=== PATIENT | male | born 1935 | race Caucasian/White ===

== ENCOUNTER 2019-06-12 12:08 | Emergency (ER) | payer MEDICARE ==
[2019-06-12] MEDS ORDERED: FUROSEMIDE 20 MG/ 2ML VIAL ONE (12:34)
[2019-06-12] MEDS ORDERED: FUROSEMIDE 40 MG/4 ML VIAL ONE (12:34)
--- NOTE | 2019-06-12 12:53 | EKG ---
Test Date: 2019-06-12 Test Time: 12:19:14 First Aid Officer: AG/T MEASUREMENT RESULTS: Intervals: Rate: 91 [place]: QRSD: 86 QT: 406 QTc: 499 [place]: P: W[place]: QRS: 40 T: 144 INTERPRETIVE STATEMENTS: Atrial fibrillation Voltage criteria for left ventricular hypertrophy ST & T wave abnormality, consider lateral ischemia Prolonged QT Abnormal ECG No previous ECG available for comparison Electronically Signed On 06-12-19 12:52:[address]
[2019-06-12 13:06] LABS: Absolute Lymphocytes (CBC) 0.9 K/uL (0.7-4.9); Basophils % 0.6 % (0-1.3); Hematocrit 31.5 % (39.6-49.0); Lymphocytes % 12.6 % (15.3-44.8); MPV 8.3 fL (7.6-11.3); RBC Red Blood Cell Count 3.73 M/uL (4.33-5.43)
[2019-06-12 13:10] LABS: Protime INR 1.11
--- NOTE | 2019-06-12 13:13 | RAD REPORT ---
EXAM DESCRIPTION: William Single View06/12/2019 1:02 pm CLINICAL HISTORY: Shortness of breath COMPARISON: none FINDINGS: Mild opacity mid to lower lateral left lung Right lung appears clear of acute infiltrate. The heart is mildly enlarged IMPRESSION: Mild left lung opacity may indicate a mild pneumonia
[2019-06-12 13:17] LABS: Albumin 2.7 g/dL (3.4-5.0); Bilirubin Direct 0.3 mg/dL (0-0.2); Bilirubin Total 0.8 mg/dL (0.2-1.0); Magnesium 1.8 mg/dL (1.8-2.4); Potassium 3.8 mmol/L (3.5-5.1); Protein, Total 6.1 g/dL (6.4-8.2); Troponin (Emerg Dept Use Only) 0.04 ng/mL (0.0-0.045)
--- NOTE | 2019-06-12 14:02 | RAD REPORT ---
EXAM DESCRIPTION: CT - Thorax Wo Con - 06/12/2019 1:48 pm CLINICAL HISTORY: sob COMPARISON: June 12, 2019 chest x-ray TECHNIQUE: Computed axial tomography of the chest was obtained. Contrast was not requested. All CT scans are performed using dose optimization technique as appropriate and may include automated exposure control or mA/KV adjustment according to patient size. FINDINGS: The evaluation of mediastinum, mike and vessels is limited secondary to lack of IV contras t administration. Mild bilateral interstitial lung opacities. Mild opacity within the lateral lower left lower lobe see n on the chest x-ray has the appearance of mild atelectasis. No mediastinal or hilar lymphadenopathy is seen. Small bilateral pleural effusions. Minimal pericardial thickening. Heart is mildly enlarged IMPRESSION: Mild bilateral interstitial opacities probably are acute and represent mild interstitial pulmonary edema. Less likely these are chronic. Given the cardiomegaly and small bilateral pleural effusions the patient likely has mild CHF
--- NOTE | 2019-06-12 15:53 | EDPHYS ---
Physician Documentation [facility] Name: Ander Del Rosario Age: 83 yrs Sex: Male : 1935 Arrival Date: 06/12/2019 Time: 12:12 Bed 24 Private MD: ED Physician Valentino Jiménez HPI: 06/12 16:48 This 83 yrs old Male presents to ER via Ambulatory with complaints of gs Shortness Of Breath, Leg Swelling. 16:48 The patient has shortness of breath at rest, during heavy activity. Onset: The gs symptoms/episode began/occurred 1 week(s) ago, and became worse and became persistent. Duration: The symptoms are continuous. The patient's shortness of breath is aggravated by exertion. Associated signs and symptoms: Pertinent positives: edema lower legs. Severity of symptoms: At their worst the symptoms were moderate in the emergency department the symptoms are unchanged. The patient has experienced similar episodes in the past, a few times. Historical: - Allergies: 12:22 No Known Allergies; ss - PMHx: 12:22 CHF; "leaky valve"; ss - Immunization history:: Adult Immunizations up to date. - Social history:: Smoking status: Patient uses tobacco products, chewing tobacco. - Ebola Screening: : Patient denies exposure to infectious person Patient denies travel to an Ebola-affected area in the 21 days before illness onset. ROS: 16:48 All other systems are negative. gs Exam: 16:48 Head/Face: Normocephalic, atraumatic. Eyes: Pupils equal round and reactive to light, gs extra-ocular motions intact. Lids and lashes normal. Conjunctiva and sclera are non-icteric and not injected. Cornea within normal limits. Periorbital areas with no swelling, redness, or edema. ENT: Nares patent. No nasal discharge, no septal abnormalities noted. Tympanic membranes are normal and external auditory canals are clear. Oropharynx with no redness, swelling, or masses, exudates, or evidence of obstruction, uvula midline. Mucous membranes moist. Neck: Trachea midline, no thyromegaly or masses palpated, and no cervical lymphadenopathy. Supple, full range of motion without nuchal rigidity, or vertebral point tenderness. No Meningismus. Chest/axilla: Normal chest wall appearance and motion. Nontender with no deformity. No lesions are appreciated. 16:48 Abdomen/GI: Soft, non-tender, with normal bowel sounds. No distension or tympany. No guarding or rebound. No evidence of tenderness throughout. Back: No spinal tenderness. No costovertebral tenderness. Full range of motion. Skin: Warm, dry with normal turgor. Normal color with no rashes, no lesions, and no evidence of cellulitis. Neuro: Awake and alert, GCS 15, oriented to person, place, time, and situation. Cranial nerves II-XII grossly intact. Motor strength 5/5 in all extremities. Sensory grossly intact. Cerebellar exam normal. Normal gait. 16:48 Constitutional: The patient appears alert, awake. 16:48 Cardiovascular: Rate: normal, Rhythm: irregularly irregular. 16:48 ECG was reviewed by the Attending Physician. 16:48 Respiratory: the patient does not display signs of respiratory distress, Respirations: tachypnea, that is mild, Breath sounds: rales, that are mild, are located in both bases. 16:48 Musculoskeletal/extremity: Perfusion: the patient is normally perfused throughout, Edema, 2+ to the left midcalf, left ankle, right midcalf and right ankle is noted. Vital Signs: 12:20 Resp 24; Weight 90.72 kg; Height 5 ft. 10 in. (177.80 cm); Pain 0/10; ss 12:30 BP 184 / 54; Pulse 89; Resp 24; Temp 98.2(O); Pulse Ox 95% ; lt1 13:30 BP 180 / 47; Pulse 76; Resp 24; Temp 97.8(O); Pulse Ox 99% on 2 lpm NC; lt1 14:27 BP 159 / 66; Pulse 89; Resp 22; Pulse Ox 100% on 2 lpm NC; mg2 15:31 Pulse 78; Pulse Ox 99% on R/A; mg2 15:33 BP 177 / 52; Resp 22; Temp 97.8(O); lt1 16:14 BP 166 / 50; Pulse 75; Resp 20; Temp 98; Pulse Ox 100% on R/A; mg2 12:20 Body Mass Index 28.70 (90.72 kg, 177.80 cm) MDM: 12:21 Patient medically screened. 16:48 Differential diagnosis: CHF exacerbation, Chronic Obstructive Pulmonary Disease gs Myocardial Infarction pneumonia. Data reviewed: vital signs, nurses notes, lab test result(s), EKG, radiologic studies. Counseling: I had a detailed discussion with the patient and/or guardian regarding: the historical points, exam findings, and any diagnostic results supporting the discharge/admit diagnosis, lab results, radiology results. Response to treatment: the patient's symptoms have markedly improved after treatment, the patient's condition has returned to base line, and as a result, I will discharge patient. ED course: good diuresis will restart lasix sats rr better. 06/12 12:21 Order name: Basic Metabolic Panel; Complete Time: 13:20 kdr 06/12 12:21 Order name: CBC with Diff; Complete Time: 13:20 kdr 06/12 12:21 Order name: LFT's; Complete Time: 13:20 kdr 06/12 12:21 Order name: Magnesium; Complete Time: 13:20 kdr 06/12 12:21 Order name: NT PRO-BNP; Complete Time: 13:20 kdr 06/12 12:21 Order name: PT-INR; Complete Time: 13:20 kdr 06/12 12:21 Order name: Troponin (emerg Dept Use Only); Complete Time: 13:20 kdr 06/12 12:21 Order name: XRAY Chest (1 view); Complete Time: 13:20 kdr 06/12 12:21 Order name: EKG; Complete Time: 12:22 kdr 06/12 12:21 Order name: Cardiac monitoring; Complete Time: 12:47 kdr 06/12 12:21 Order name: EKG - Nurse/Tech; Complete Time: 12:27 kdr 06/12 12:21 Order name: IV Saline Lock; Complete Time: 12:47 kdr 06/12 13:21 Order name: CT Chest Wo Con; Complete Time: 14:21 kdr 06/12 12:21 Order name: Labs collected and sent; Complete Time: 12:47 kdr 06/12 12:21 Order name: O2 Per Protocol; Complete Time: 12:47 kdr 06/12 12:21 Order name: O2 Sat Monitoring; Complete Time: 12:47 kdr EC:48 Rate is 91 beats/min. Rhythm is irregularly irregular. QRS interval is normal. QT gs interval is prolonged. T waves are Flattened. Clinical impression: Abnormal EKG without significant change. Interpreted by me. Administered Medications: 12:54 Drug: Lasix 60 mg Route: IVP; Site: left wrist; mg2 13:20 Follow up: Response: No adverse reaction; Marked relief of symptoms mg2 Disposition: 06/12/19 15:52 Discharged to Home. Impression: Heart failure. - Condition is Stable. - Discharge Instructions: Heart Failure, [id number]. - Prescriptions for Potassium Chloride 20 meq Oral Packet - take 1 packet by ORAL route once daily 1 packet in 6 (six) ounces of water or juice; Take after meal; 7 packet. Lasix 40 mg Oral Tablet - take 1 tablet by ORAL route 2 times per day .; 14 tablet. - Medication Reconciliation Form, Thank You Letter, Antibiotic Education, Prescription Opioid Use form. - Follow up: Private Physician; When: 2 - 3 days; Reason: Re-evaluation by your physician. Signatures: Dispatcher [employer] EDNoé Valverde MD MD [facility] Viridiana Galvan RN RN ss Valentino Jiménez MD MD Pravin Villagomez RN RN mg2 Corrections: (The following items were deleted from the chart) 16:15 15:52 06/12/2019 15:52 Discharged to Home. Impression: Heart failure. Condition is mg2 Stable. Forms are Medication Reconciliation Form, Thank You Letter, Antibiotic Education, Prescription Opioid Use. Follow up: Private Physician; When: 2 - 3 days; Reason: Re-evaluation by your physician.
--- NOTE | 2019-06-12 15:53 | ER ---
Nurse's Notes [facility] Name: Ander Del Rosario Age: 83 yrs Sex: Male : 1935 Arrival Date: 06/12/2019 Time: 12:12 Bed 24 Private MD: Diagnosis: Heart failure Presentation: 06/12 12:20 Presenting complaint: Patient states: bilateral leg swelling and increasing shortness ss of breath that began 1 week ago. Transition of care: patient was not received from another setting of care. Onset of symptoms was June 05, 2019. Risk Assessment: Do you want to hurt yourself or someone else? Patient reports no desire to harm self or others. Initial Sepsis Screen: Does the patient have a suspected source of infection? No. Patient's initial sepsis screen is negative. Care prior to arrival: None. 12:20 Method Of Arrival: Ambulatory ss 12:20 Acuity: DIONNA 3 ss 13:01 Initial Sepsis Screen: Does the patient meet any 2 criteria? No. Patient's initial mg2 sepsis screen is negative. Triage Assessment: 13:01 General: Appears in no apparent distress. comfortable, Behavior is calm, cooperative. mg2 Respiratory: Reports shortness of breath Onset: The symptoms/episode began/occurred suddenly, the patient has mild shortness of breath. Historical: - Allergies: 12:22 No Known Allergies; ss - PMHx: 12:22 CHF; "leaky valve"; ss - Immunization history:: Adult Immunizations up to date. - Social history:: Smoking status: Patient uses tobacco products, chewing tobacco. - Ebola Screening: : Patient denies exposure to infectious person Patient denies travel to an Ebola-affected area in the 21 days before illness onset. Screenin:56 Abuse screen: Denies threats or abuse. Denies injuries from another. Nutritional mg2 screening: No deficits noted. Tuberculosis screening: No symptoms or risk factors identified. Fall Risk IV access (20 points). Assessment: 12:57 General: Appears in no apparent distress. comfortable, Behavior is calm, cooperative. mg2 Pain: Denies pain. Neuro: Level of Consciousness is awake, alert, obeys commands, Oriented to person, place, time, situation. Cardiovascular: Capillary refill < 3 seconds Patient's skin is warm and dry. Respiratory: Airway is patent Respiratory effort is even, Respiratory pattern is regular, symmetrical, hard work of breathing Breath sounds with crackles bilaterally. in mediastinum, right middle lobe, left lower lobe and right lower lobe. GI: No signs and/or symptoms were reported involving the gastrointestinal system. : No signs and/or symptoms were reported regarding the genitourinary system. EENT: No signs and/or symptoms were reported regarding the EENT system. Derm: Skin is intact, is healthy with good turgor, Skin is pink, warm \\T\\ dry. normal. Musculoskeletal: Circulation, motion, and sensation intact. Capillary refill < 3 seconds. 13:00 Cardiovascular: Rhythm is sinus rhythm. mg2 13:14 Musculoskeletal: Swelling present in both legs. mg2 14:28 Reassessment: Patient and/or family updated on plan of care and expected duration. Pain mg2 level reassessed. Patient is alert, oriented x 3, equal unlabored respirations, skin warm/dry/pink. 15:32 Reassessment: Patient appears in no apparent distress at this time. Patient states mg2 feeling better. Patient states symptoms have improved. Vital Signs: 12:20 Resp 24; Weight 90.72 kg; Height 5 ft. 10 in. (177.80 cm); Pain 0/10; ss 12:30 BP 184 / 54; Pulse 89; Resp 24; Temp 98.2(O); Pulse Ox 95% ; lt1 13:30 BP 180 / 47; Pulse 76; Resp 24; Temp 97.8(O); Pulse Ox 99% on 2 lpm NC; lt1 14:27 BP 159 / 66; Pulse 89; Resp 22; Pulse Ox 100% on 2 lpm NC; mg2 15:31 Pulse 78; Pulse Ox 99% on R/A; mg2 15:33 BP 177 / 52; Resp 22; Temp 97.8(O); lt1 16:14 BP 166 / 50; Pulse 75; Resp 20; Temp 98; Pulse Ox 100% on R/A; mg2 12:20 Body Mass Index 28.70 (90.72 kg, 177.80 cm) ED Course: 12:12 Patient arrived in ED. as 12:14 Valentino Jiménez MD is Attending Physician. gs 12:20 Arm band placed on right wrist. ss 12:21 Triage completed. ss 12:27 Pravin Villagomez RN is Primary Nurse. mg2 12:55 No provider procedures requiring assistance completed. Inserted saline lock: 20 gauge mg2 in left wrist, using aseptic technique. Blood collected. by PATITO Olivo. 13:01 XRAY Chest (1 view) In Process Unspecified. EDMS 13:01 Patient has correct armband on for positive identification. Door closed. Warm blanket mg2 given. 13:50 CT Chest Wo Con In Process Unspecified. EDMS 14:28 Assisted with urinal. mg2 16:14 IV discontinued, intact, bleeding controlled, No redness/swelling at site. Pressure mg2 dressing applied. Administered Medications: 12:54 Drug: Lasix 60 mg Route: IVP; Site: left wrist; mg2 13:20 Follow up: Response: No adverse reaction; Marked relief of symptoms mg2 Output: 12:30 Urine: 550ml (Voided); Total: 550ml. lt1 13:00 Urine: 250ml (Voided); Total: 800ml. lt1 14:27 Urine: 600ml (Voided); Total: 1400ml. mg2 15:00 Urine: 450ml (Voided); Total: 1850ml. mg2 16:13 Urine: 800ml (Voided); Total: 2650ml. mg2 Outcome: 15:52 Discharge ordered by . gs 16:14 Discharged to home ambulatory, with family. mg2 16:14 Condition: stable 16:14 Discharge instructions given to patient, family, Instructed on discharge instructions, the need for admit, medication usage, Demonstrated understanding of instructions, follow-up care, medications, Prescriptions given X 2. 16:15 Patient left the ED. mg2 Signatures: Dispatcher [employer] Roseann Almodovar Shelby, RN RN Valentino Jiménez MD MD gs [place], Michele, RN RN mg2 Pallavi Hernandez lt1
[2019-06-12 16:37] VITALS: BP 166/50; TEMP 98; O2SAT 100
== END 2019-06-12 16:15 | disposition home or self-care (01) ==
LOC: ER 12:08
DX: I50.9 Heart failure, unspecified (principal); Z72.0 Tobacco use
CPT/HCPCS: 93005; 85025; 80048; 36415; 83735; 85610; 80076; 84484; 83880; 71250; 71045; 96374; 99284; J1940 ×2

== ENCOUNTER 2020-03-02 14:53 | Emergency (ER) | payer MEDICARE ==
[2020-03-02 15:37] LABS: Absolute Lymphocytes (CBC) 1.7 K/uL (0.7-4.9); Basophils % 0.9 % (0-1.3); Hematocrit 40.7 % (39.6-49.0); Lymphocytes % 21.2 % (15.3-44.8); RBC Red Blood Cell Count 4.83 M/uL (4.33-5.43)
[2020-03-02 15:51] LABS: Protime INR 1.09
[2020-03-02 16:01] LABS: Albumin 3.3 g/dL (3.4-5.0); Bilirubin Direct 0.2 mg/dL (0-0.2); Bilirubin Total 0.7 mg/dL (0.2-1.0); Magnesium 2.1 mg/dL (1.8-2.4); Potassium 4.2 mmol/L (3.5-5.1); Protein, Total 7.3 g/dL (6.4-8.2); Troponin (Emerg Dept Use Only) 0.04 ng/mL (0.0-0.045)
[2020-03-02] MEDS ORDERED: FUROSEMIDE 20 MG/ 2ML VIAL ONE (16:27)
--- NOTE | 2020-03-02 17:24 | RAD REPORT ---
EXAM DESCRIPTION: RAD - Chest Single View - 03/02/2020 4:34 pm CLINICAL HISTORY: SOB COMPARISON: Portable chest May 2019, CT chest May 2019 TECHNIQUE: AP portable chest image was obtained 03/02/2020 4:34 pm . FINDINGS: No focal lung parenchymal process. Interstitial pattern is similar to less prominent than comparison study. Pericardial fat pads are evident. Cardiac silhouette is similar to comparison. Wide raya mediastinum also similar to comparison. Prior CT imaging showed tortuous vasculature which would account for the fullness of the mediastinum. No measurable pleural effusion and no pneumothorax. No acute bony abnormality seen. No acute aortic f indings suspected. IMPRESSION: No acute cardiopulmonary process. No significant change from the May 2019 exam.
--- NOTE | 2020-03-02 18:03 | EDPHYS ---
Physician Documentation [facility] Name: Ander Del Rosario Age: 84 yrs Sex: Male : 1935 Arrival Date: 03/02/2020 Time: 14:56 Bed 4 Private MD: ED Physician Noé Scott HPI: 03/02 15:20 This 84 yrs old Male presents to ER via EMS with complaints of Shortness Of cp Breath. 15:20 The patient has shortness of breath with light activity. Onset: The symptoms/episode cp began/occurred gradually. 15:20 Duration: The symptoms are continuous. Associated signs and symptoms: Pertinent cp negatives: chest pain, productive cough, diaphoresis, fever, vomiting. Severity of symptoms: in the emergency department the symptoms are unchanged despite home interventions. Patient reports running out of Lasix medication about 3 weeks ago. Historical: - Allergies: 15:00 No Known Allergies; sv - PMHx: 15:00 "leaky valve"; CHF; Hypertension; sv - Immunization history:: Adult Immunizations up to date. - Social history:: Smoking status: . ROS: 15:25 Constitutional: Negative for body aches, chills, fever, poor PO intake. cp 15:25 Eyes: Negative for injury, pain, redness, and discharge. cp 15:25 ENT: Negative for ear pain, sore throat, difficulty swallowing, difficulty handling secretions. 15:25 Cardiovascular: Positive for edema, Negative for chest pain, palpitations. 15:25 Respiratory: Positive for shortness of breath, on exertion. Negative for cough, wheezing. 15:25 Abdomen/GI: Negative for abdominal pain, nausea, vomiting, and diarrhea. 15:25 Back: Negative for pain at rest, pain with movement. 15:25 : Negative for urinary symptoms. 15:25 Skin: Negative for cellulitis, rash. 15:25 Neuro: Negative for altered mental status, headache, syncope, weakness. 15:25 All other systems are negative. Exam: 15:30 Constitutional: The patient appears in no acute distress, alert, awake, cp non-diaphoretic, non-toxic, well developed, well nourished. 15:30 Head/Face: Normocephalic, atraumatic. cp 15:30 Eyes: Periorbital structures: appear normal, Conjunctiva: normal, no exudate, no injection, Sclera: no appreciated abnormality, Lids and lashes: appear normal, bilaterally. 15:30 ENT: External ear(s): are unremarkable, Nose: is normal, Mouth: Lips: moist, Oral mucosa: pink and intact, moist, Posterior pharynx: is normal, airway is patent, no erythema, no exudate. 15:30 Chest/axilla: Inspection: normal, Palpation: is normal, no crepitus, no tenderness. 15:30 Cardiovascular: Rate: normal, Rhythm: regular, Edema: ankle edema, that is very mild, JVD: is not appreciated. 15:30 Respiratory: the patient does not display signs of respiratory distress, Respirations: labored breathing, is not present, intercostal retractions, are absent, shallow respirations, are not present, tachypnea, is not appreciated, Breath sounds: rales, are not appreciated, bronchial sounds, that are mild, are heard diffusely, rhonchi, are not appreciated, stridor, is not appreciated, wheezing: is not appreciated. 15:30 Abdomen/GI: Inspection: abdomen appears normal, Palpation: abdomen is soft and non-tender, in all quadrants. 15:30 Back: pain, is absent, ROM is normal. 15:30 Skin: no rash present. 15:30 Neuro: Orientation: to person, place \\T\\ time. Mentation: is normal, Motor: moves all fours, strength is normal, Sensation: is normal. 16:24 ECG was reviewed by the Attending Physician. cp Vital Signs: 14:51 BP 171 / 39; Pulse 83; Resp 24; Temp 97.9; Pulse Ox 97% ; sv 16:23 BP 176 / 49; Pulse 81; Resp 28; Pulse Ox 96% on R/A; sv 17:52 BP 167 / 38; Pulse 87; Resp 26; Pulse Ox 94% on R/A; sv 18:32 BP 160 / 47; Pulse 94; Resp 24; Pulse Ox 95% on R/A; sv 19:20 BP 149 / 89; Pulse 96; Resp 26; Temp 98; Pulse Ox 98% ; rr5 20:00 BP 133 / 75; Pulse 90; Resp 22; Pulse Ox 99% ; rr5 MDM: 15:19 Patient medically screened. cp 15:30 Differential diagnosis: Anemia Bronchitis CHF exacerbation, Chronic Obstructive cp Pulmonary Disease Myocardial Infarction pneumonia, Pneumothorax pulmonary edema, Pulmonary Embolism Unstable Angina. 17:40 Data reviewed: vital signs, nurses notes, lab test result(s), EKG, radiologic studies, cp plain films. 17:40 Test interpretation: by ED physician or midlevel provider: ECG. 18:00 Physician consultation: Nimesh GUERRA-C was called at 17:50, was contacted at 17:50, cp regarding admission, to the telemetry unit. patient's condition. 18:23 Physician consultation: in the emergency department to see patient at 18:24, discharges cp patient from the emergency department, Patient seen and evaluated by Nimesh Guillermo, METALIZING MACHINE OPERATOR and felt stable for discharge to home. Return precautions given. 18:45 ED course: VSS. Patient stable and no signs of respiratory distress. Patient reports cp symptoms improved after IV Lasix. 03/02 15:19 Order name: Basic Metabolic Panel; Complete Time: 16:07 03/02 16:07 Interpretation: Normal except: GLUC 114; BUN 27; GFR 57. 03/02 15:19 Order name: CBC with Diff; Complete Time: 16:07 03/02 16:07 Interpretation: Normal except: HGB 13.3. 03/02 15:19 Order name: LFT's; Complete Time: 16:07 03/02 15:19 Order name: Magnesium; Complete Time: 16:07 03/02 15:19 Order name: NT PRO-BNP; Complete Time: 16:07 08 16:08 Interpretation: Abnormal: NT PRO-BNP 3717. 03/02 15:19 Order name: PT-INR; Complete Time: 16:07 03/02 15:19 Order name: Troponin (emerg Dept Use Only); Complete Time: 16:07 03/02 15:19 Order name: XRAY Chest (1 view); Complete Time: 17:37 03/02 15:19 Order name: EKG; Complete Time: 15:21 03/02 15:19 Order name: Cardiac monitoring; Complete Time: 15:31 03/02 15:19 Order name: EKG - Nurse/Tech; Complete Time: 16:23 03/02 15:19 Order name: IV Saline Lock; Complete Time: 15:31 03/02 15:19 Order name: Labs collected and sent; Complete Time: 15:31 cp 03/02 15:19 Order name: O2 Per Protocol; Complete Time: 15:31 cp 03/02 15:19 Order name: O2 Sat Monitoring; Complete Time: 15:32 cp 03/02 17:44 Order name: Vital Signs: please recheck and ambulate patient to check oxygen sats; cp Complete Time: 17:51 EC:24 Rate is 81 beats/min. Rhythm is regular. GA interval is normal. QRS interval is normal. cp QT interval is normal. T waves are Inverted in leads I, aVL. Interpreted by me. Reviewed by me. Administered Medications: 16:23 Drug: Lasix 20 mg Route: IVP; Site: right wrist; sv 17:00 Follow up: Response: No adverse reaction sv 18:20 Drug: Lasix 40 mg Route: IVP; Site: right hand; sv 19:20 Follow up: Response: No adverse reaction rr5 Disposition: 03/03 07:08 Co-signature as Attending Physician, Noé Scott MD I agree with the assessment and kdr plan of care. Disposition: 03/02/20 18:26 Discharged to Home. Impression: Unspecified combined systolic (congestive) and diastolic (congestive) heart failure, Dyspnea. - Condition is Stable. - Discharge Instructions: Heart Failure, Shortness of Breath. - Medication Reconciliation Form, Thank You Letter, Antibiotic Education, Prescription Opioid Use form. - Follow up: Private Physician; When: 2 - 3 days; Reason: Recheck today's complaints. - Problem is an acute exacerbation. - Symptoms have improved. Signatures: Dispatcher [employer] EDDavida Turner RN RN Noé Scott MD MD kdr Page, Corey, PA PA cp Brendan Van, RN RN rr5 Corrections: (The following items were deleted from the chart) 03/02 18:25 18:02 Hospitalization Ordered by Alexy Butler DO for Observation. Preliminary cp diagnosis is Unspecified combined systolic (congestive) and diastolic (congestive) heart failure; Dyspnea, unspecified. Bed requested for Telemetry/MedSurg (observation). Status is Observation. Condition is Stable. Problem is an acute exacerbation. Symptoms are unchanged. cp 18:27 18:26 03/02/2020 18:26 Discharged to Home. Impression: Unspecified combined systolic cp (congestive) and diastolic (congestive) heart failure. Condition is Stable. Forms are Medication Reconciliation Form, Thank You Letter, Antibiotic Education, Prescription Opioid Use. Follow up: Private Physician; When: 2 - 3 days; Reason: Recheck today's complaints. Problem is an acute exacerbation. Symptoms have improved. cp 20:24 18:27 03/02/2020 18:26 Discharged to Home. Impression: Unspecified combined systolic rr5 (congestive) and diastolic (congestive) heart failure; Dyspnea. Condition is Stable. Discharge Instructions: Shortness of Breath, Heart Failure. Forms are Medication Reconciliation Form, Thank You Letter, Antibiotic Education, Prescription Opioid Use. Follow up: Private Physician; When: 2 - 3 days; Reason: Recheck today's complaints. Problem is an acute exacerbation. Symptoms have improved. cp 03/03 18:25 03/02 15:20 Patient reports running out of Lasix medication several weeks ago. cp cp
--- NOTE | 2020-03-02 18:03 | ER ---
Nurse's Notes [facility] Name: Ander Del Rosario Age: 84 yrs Sex: Male : 1935 Arrival Date: 03/02/2020 Time: 14:56 Bed 4 Private MD: Diagnosis: Unspecified combined systolic (congestive) and diastolic (congestive) heart failure;Dyspnea Presentation: 03/02 14:51 Chief complaint: EMS states: SOB with exertion x2 days, [facility]. Pt reports he has been out of his Lasix for about 3 weeks. On EMS arrival pt was not in any respiratory distress. 96% RA, BP 168/69 lungs CTA. 18 G R wrist. Coronavirus screen: Proceed with normal triage. Patient denies a cough. Patient reports shortness of breath or difficulty breathing. Patient denies measured and/or subjective temperature greater than 100.4F prior to today's visit. Patient denies travel on a cruise ship or to a country the [facility] currently lists as an affected area. Patient denies contact with known and/or suspected case of COVID-19. Ebola Screen: No symptoms or risks identified at this time. Initial Sepsis Screen: Does the patient meet any 2 criteria? RR > 20 per min. No. Patient's initial sepsis screen is negative. Does the patient have a suspected source of infection? No. Patient's initial sepsis screen is negative. Risk Assessment: Do you want to hurt yourself or someone else? Patient reports no desire to harm self or others. Onset of symptoms was February 29, 2020. 14:51 Method Of Arrival: EMS: [facility] sv 14:51 Acuity: DIONNA 2 sv Triage Assessment: 15:00 General: Appears in no apparent distress. comfortable, well developed, Behavior is sv calm, cooperative, appropriate for age. Pain: Denies pain. Neuro: Level of Consciousness is awake, alert, obeys commands, Oriented to person, place, time, situation, Moves all extremities. Full function. Respiratory: Reports shortness of breath on exertion Respiratory effort is even, unlabored, Respiratory pattern is regular, tachypnea Onset: The symptoms/episode began/occurred 2 days, the patient has mild shortness of breath. Derm: Skin is normal. Historical: - Allergies: 15:00 No Known Allergies; sv - PMHx: 15:00 "leaky valve"; CHF; Hypertension; sv - Immunization history:: Adult Immunizations up to date. - Social history:: Smoking status: . Screenin:01 Abuse screen: Denies threats or abuse. Denies injuries from another. Nutritional sv screening: No deficits noted. Tuberculosis screening: No symptoms or risk factors identified. Fall Risk None identified. Assessment: 15:45 Reassessment: Pt ambulating around his room from his stretcher to the chair. O2 sat sv noted to be 90% RA. 16:26 Reassessment: Patient appears in no apparent distress at this time. No changes from sv previously documented assessment. Patient and/or family updated on plan of care and expected duration. Pain level reassessed. Patient is alert, oriented x 3, equal unlabored respirations, skin warm/dry/pink. 17:50 Reassessment: Pt ambulating around his room from his stretcher to the chair. O2 sat sv noted to be around 90-91% RA. 18:45 Reassessment: POC discussed with Nimesh GUERRA. I informed him that pt still desats to sv 90-92% RA with ambulation in the room. He stated that we will monitor the pt for about another hour and watch the O2 sats. 19:02 Reassessment: Ambulated pt around to Pod 1 with no O2. O2 sat after ambulation is 90%. sv 19:15 General: Appears in no apparent distress. comfortable, for discharge . Pain: Denies rr5 pain. Neuro: Level of Consciousness is awake, alert, obeys commands, Oriented to person, place, time, situation. Cardiovascular: Capillary refill < 3 seconds Patient's skin is warm and dry. Cardiovascular: Rhythm is. Respiratory: Airway is patent Respiratory effort is even, unlabored, Respiratory pattern is regular, symmetrical, GI: No signs and/or symptoms were reported involving the gastrointestinal system. : No signs and/or symptoms were reported regarding the genitourinary system. EENT: No signs and/or symptoms were reported regarding the EENT system. Derm: Skin is intact, is healthy with good turgor, Skin temperature is warm. Musculoskeletal: Capillary refill < 3 seconds. 19:40 Reassessment: Patient appears in no apparent distress at this time. able to walk around rr5 the bedside, no shortness of breath reported. 20:20 Reassessment: Patient appears in no apparent distress at this time. Patient is alert, rr5 oriented x 3, equal unlabored respirations, skin warm/dry/pink. discharge instruction given and explained without complaints made. Patient states feeling better. Patient states symptoms have improved. Vital Signs: 14:51 BP 171 / 39; Pulse 83; Resp 24; Temp 97.9; Pulse Ox 97% ; sv 16:23 BP 176 / 49; Pulse 81; Resp 28; Pulse Ox 96% on R/A; sv 17:52 BP 167 / 38; Pulse 87; Resp 26; Pulse Ox 94% on R/A; sv 18:32 BP 160 / 47; Pulse 94; Resp 24; Pulse Ox 95% on R/A; sv 19:20 BP 149 / 89; Pulse 96; Resp 26; Temp 98; Pulse Ox 98% ; rr5 20:00 BP 133 / 75; Pulse 90; Resp 22; Pulse Ox 99% ; rr5 ED Course: 14:51 Maintain EMS IV. Dressing intact. Good blood return noted. Site clean \\T\\ dry. Gauge \\T\\ sv site: 18G R wrist. 14:56 Patient arrived in ED. sv 14:56 Davida Segundo, SULMA is Primary Nurse. sv 14:59 Triage completed. sv 15:00 Arm band placed on. sv 15:00 Initial lab(s) drawn, by me, sent to lab. sv 15:01 Patient has correct armband on for positive identification. Bed in low position. Call sv light in reach. Side rails up X2. Pulse ox on. NIBP on. Door closed. Head of bed elevated. 15:10 Darryl Fontana PA is PHCP. cp 15:10 Noé Scott MD is Attending Physician. cp 16:22 EKG done, by ED staff, reviewed by Darryl MCNULTY. dh3 16:26 Awaiting radiology results. sv 16:34 XRAY Chest (1 view) In Process Unspecified. EDMS 18:01 Alexy Butler DO is Hospitalizing Provider. cp 19:12 Report given to Brendan RN and Sheri RN. sv 19:13 Primary Nurse role handed off by Davida Segundo, SULMA sv 20:15 Brendan Van, SULMA is Primary Nurse. rr5 20:15 No provider procedures requiring assistance completed. IV discontinued, intact, rr5 bleeding controlled, No redness/swelling at site. Pressure dressing applied. Administered Medications: 16:23 Drug: Lasix 20 mg Route: IVP; Site: right wrist; sv 17:00 Follow up: Response: No adverse reaction sv 18:20 Drug: Lasix 40 mg Route: IVP; Site: right hand; sv 19:20 Follow up: Response: No adverse reaction rr5 Output: 18:24 Urine: 500ml (Voided); Total: 500ml. sv 20:00 Urine: 300ml (Voided); Total: 800ml. rr5 Outcome: 18:02 Decision to Hospitalize by Provider. cp 18:26 Discharge ordered by MD. cp 20:20 Discharged to home via wheelchair. rr5 20:20 Condition: stable 20:20 Discharge instructions given to patient, Instructed on discharge instructions, follow up and referral plans. Demonstrated understanding of instructions, follow-up care. 20:24 Patient left the ED. rr5 Signatures: Dispatcher [employer] Davida Sepulveda RN RN Darryl Fontana PA PA Snow Mccormick [facility] Brendan Van RN RN rr5 Corrections: (The following items were deleted from the chart) 15:06 14:51 Acuity: DIONNA 3 sv sv 03/03 06:56 07/08 19:15 Respiratory: Airway is patent Respiratory effort is even, unlabored, rr5 Respiratory pattern is regular, symmetrical, rr5
[2020-03-02] MEDS ORDERED: FUROSEMIDE 40 MG/4 ML VIAL ONE (18:23)
--- NOTE | 2020-03-02 18:39 | P.CNS ---
Date of Consult: 03/02/20 Reason for Consult: Possible ED admission Requesting Physician: Noé Scott Primary Care Provider: PARVIZ Chief Complaint: Shortness of breath History of Present Illness: 84-year-old male with history of hypertension and CHF presented the emergency department for shortness of breath. Patient reports that he has been out of his Lasix for approximately 1 month. [facility] 60 [facility] once daily which she took yesterday. Patient reports that somebody had told them that he is dehydrated so he has also been drinking as much water as he could. Patient reports that his shortness of breath has improved since the 20mg of Lasix that he was given IV in the emergency department but he still feels short of breath with exertion. Patient does report some lower extremity edema but states that it is about at baseline and not even worse. Patient is able to speak in full sentences and in no respiratory distress. Patient states that he was not on a fluid restriction and also not performing daily weights. Home medications list reviewed: Yes - Past Medical/Surgical History -: Congestive heart failure -: Hypertension Past Surgical History: Reviewed- Non-Contributory Psychosocial/ Personal History: Patient lives at home alone - Social History Smoking Status: Never smoker Alcohol use: No CD- Drugs: No Caffeine use: No Place of Residence: Home Review of Systems General: Unremarkable Eyes: Unremarkable ENT: Unremarkable Respiratory: SOB with Excertion Cardiovascular: Edema, Other (Patient denies chest pain) Gastrointestinal: Unremarkable Genitourinary: Unremarkable Musculoskeletal: Unremarkable Integumentary: Unremarkable Neurological: Unremarkable Lymphatics: Unremarkable Physical Examination General: Alert, In no apparent distress, Oriented x3 HEENT: Atraumatic, Normocephalic Neck: Supple Respiratory: Crackles/rales (Mild bilaterally) Cardiovascular: Normal pulses, Regular rate/rhythm, Normal S1 S2, Edema (Mild pitting edema bilaterally) Capillary refill: <2 Seconds Gastrointestinal: Normal bowel sounds, No tenderness, No masses, No rebound, No guarding Musculoskeletal: No contractures, No erythema, No tenderness Integumentary: No significant lesion, No tenderness/swelling, No erythema Neurological: Normal speech, Normal strength at 5/5 x4 extr, Normal tone Laboratory Data (last 24 hrs) 03/02/20 15:10: PT 12.8 H, INR 1.09 03/02/20 15:10: WBC 7.9, Hgb 13.3 L, Hct 40.7, Plt Count 169 03/02/20 15:10: Sodium 141, Potassium 4.2, BUN 27 H, Creatinine 1.21, Glucose 114 H, Magnesium 2.1, Total Bilirubin 0.7, AST 21, ALT 16, Alkaline Phosphatase 117 Conclusions/Impression: Assessment Dyspnea secondary to CHF exacerbation Plan Dyspnea secondary to CHF exacerbation: Chest x-ray negative for any acute findings including volume overload. Patient in no respiratory distress. Oxygen saturations greater than 90% even with exertion. Had extended conversation with patient in regards to the importance of 1.5 L fluid restriction, appropriate use of prescribed diuretic therapy, daily weights. Patient was given 800 cc container and instructed to drink no more than 2 of these per day. Patient was offered admission for observation and diuretic therapy overnight ultimately declined. Patient in no respiratory distress, vital signs within normal limits. Patient oxygen saturation around 90-91% with exertion but at rest and while talking in full sentences patient oxygen level between 95 and 96%. Patient instructed to begin taking his Lasix 60 mg once daily tomorrow and continue this. Patient also instructed to follow up with primary care doctor in the next few days. Patient also given strict return precautions should he get more short of breath or any new or worsening problems that he return to the emergency department immediately. Patient verbalized understanding. Critical Care: No Time Spent Managing Pts care (In Minutes): 45
[2020-03-02 22:46] VITALS: BP 160/47; O2SAT 95
== END 2020-03-02 20:24 | disposition home or self-care (01) ==
LOC: ER 14:53
DX: I50.40 Unspecified combined systolic (congestive) and diastolic (congestive) heart failure (principal); R06.00 Dyspnea, unspecified; I10 Essential (primary) hypertension
CPT/HCPCS: 93005; 85025; 80048; 36415; 83735; 85610; 80076; 84484; 83880; 71045; 96374; 99284; J1940 ×2

== ENCOUNTER 2022-04-27 11:26 | Inpatient (IN) | payer MEDICARE, OTHER ==
[2022-04-27] MEDS ORDERED: LEVALBUTEROL 1.25 MG/3 ML NEB ONE (12:00)
[2022-04-27 12:20] LABS: Absolute Lymphocytes (CBC) 0.5 K/uL (0.7-4.9); Hematocrit 31.7 % (39.6-49.0); Lymphocytes % 12.7 % (15.3-44.8); MCV 83.5 fL (80-100); MPV 8.6 fL (7.6-11.3); RBC Red Blood Cell Count 3.79 M/uL (4.33-5.43)
[2022-04-27 12:35] LABS: Protime INR 1.31
--- NOTE | 2022-04-27 12:37 | RAD REPORT ---
EXAM DESCRIPTION: RAD - Chest Single View - 04/27/2022 12:20 pm CLINICAL HISTORY: Cough Chest pain. COMPARISON: Chest Single View dated 03/02/2020; Chest Single View dated 06/12/2019 FINDINGS: Portable technique limits examination quality. Moderate bilateral pulmonary opacities are present which may represent pulmonary edema or viral infec tion. The heart is moderately enlarged. No displaced fractures. IMPRESSION: Moderate CHF.
[2022-04-27 12:47] LABS: Albumin 2.9 g/dL (3.4-5.0); Bilirubin Total 2.2 mg/dL (0.2-1.0); Potassium 3.9 mmol/L (3.5-5.1); Protein, Total 6.8 g/dL (6.4-8.2); Troponin High Sensitivity 32.8 pg/mL (<58.9)
[2022-04-27] MEDS ORDERED: FUROSEMIDE 20 MG/ 2ML VIAL ONE (13:12)
[2022-04-27] MEDS ORDERED: FUROSEMIDE 40 MG/4 ML VIAL ONE (13:12)
--- NOTE | 2022-04-27 13:25 | EDPHYS ---
Physician Documentation [facility] Name: Ander Del Rosario Age: 86 yrs Sex: Male : 1935 Arrival Date: 04/27/2022 Time: 11:29 Bed 8 Private MD: ED Physician Paco An HPI: 04/27 13:17 This 86 yrs old Male presents to ER via Wheelchair with complaints of sob. rn 13:17 The patient has shortness of breath at rest, with light activity. Onset: The rn symptoms/episode began/occurred 1 week(s) ago. Duration: The symptoms are continuous. The patient's shortness of breath is aggravated by exertion, light activity, talking, walking, is alleviated by nothing. Severity of symptoms: At their worst the symptoms were moderate in the emergency department the symptoms are unchanged. The patient has not experienced similar symptoms in the past. The patient has not recently seen a physician. Pt reports sob for last week, no chest pain, + cough, no fever. . Historical: - Allergies: 11:42 No Known Allergies; ss - Home Meds: 11:42 Unable to obtain [Active]; ss - PMHx: 11:42 "leaky valve"; CHF; Hypertension; ss - PSHx: 11:42 None; ss - Immunization history:: Adult Immunizations up to date, Client reports receiving the 2nd dose of the Covid vaccine, Client reports receiving the 1st dose of the Covid vaccine. - Social history:: Smoking status: Patient reports use of chewing tobacco. Patient denies any tobacco usage or history of. - Family history:: not pertinent. - Hospitalizations: : No recent hospitalization is reported. ROS: 13:17 Constitutional: Negative for fever, chills, and weight loss, Eyes: Negative for injury, rn pain, redness, and discharge, Neck: Negative for injury, pain, and swelling, Cardiovascular: Negative for chest pain, palpitations Respiratory: + sob and cough Abdomen/GI: Negative for abdominal pain, nausea, vomiting, diarrhea, and constipation, Back: Negative for injury and pain, MS/Extremity: Negative for injury and deformity, Skin: Negative for injury, rash, and discoloration, Neuro: Negative for headache, weakness, numbness, tingling, and seizure. Exam: 13:17 Constitutional: This is a well developed, well nourished patient who is awake, alert, rn + moderate tachypnea Head/Face: Normocephalic, atraumatic. Cardiovascular: Regular rate and rhythm. No pulse deficits. Respiratory: + moderate tachypnea, no retractions, coarse bilateral breath sounds Abdomen/GI: soft, non-tender Skin: Warm, dry MS/ Extremity: RLE slightly larger circumference compared to LLE Neuro: Awake and alert, GCS 15 13:20 ECG was reviewed by the Attending Physician. rn Vital Signs: 11:38 BP 106 / 74; Pulse 76; Resp 26; Temp 98.2(TE); Pulse Ox 88% on R/A; Weight 95.25 kg ss (R); Height 5 ft. 10 in. (177.80 cm); Pain 0/10; 12:55 BP 130 / 42; Pulse 67; Resp 24; Pulse Ox 94% on 4 lpm NC; ld1 13:35 BP 127 / 43; Pulse 71; Resp 22; Pulse Ox 96% on 4 lpm NC; Pain 0/10; ld1 15:34 BP 137 / 47; Pulse 76; Resp 18; Pulse Ox 94% on 4 lpm NC; ld1 16:30 BP 133 / 46; Pulse 73; Resp 18; Pulse Ox 95% on 4 lpm NC; ld1 17:30 BP 132 / 46; Pulse 76; Resp 18; Pulse Ox 97% on 4 lpm NC; ld1 18:30 BP 117 / 32; Pulse 67; Resp 18; Pulse Ox 94% on BiPAP; ld1 19:15 BP 129 / 41; Pulse 64; Resp 25; Pulse Ox 96% on BiPAP; ll3 11:38 Body Mass Index 30.13 (95.25 kg, 177.80 cm) MDM: 11:37 Patient medically screened. rn 13:17 Differential diagnosis: CHF exacerbation, pneumonia, Pneumothorax pulmonary edema, rn Sepsis. Data reviewed: vital signs, nurses notes, lab test result(s), EKG, radiologic studies, plain films. 13:21 Counseling: I had a detailed discussion with the patient and/or guardian regarding: the rn historical points, exam findings, and any diagnostic results supporting the discharge/admit diagnosis, lab results, radiology results, the need for further work-up and treatment in the hospital. Response to treatment: the patient's symptoms have mildly improved after treatment, and as a result, I will admit patient. Admission orders: after a detailed discussion of the patient's condition and case, the admit orders are written by me. 04/27 11:44 Order name: Blood Culture Adult (2) rn 04/27 11:44 Order name: CBC with Diff; Complete Time: 13:00 rn 04/27 11:44 Order name: CMP; Complete Time: 13:00 rn 04/27 11:44 Order name: Lactate; Complete Time: 13:00 rn 04/27 11:44 Order name: Protime (+inr); Complete Time: 13:00 rn 04/27 11:44 Order name: Ptt, Activated; Complete Time: 13:00 rn 04/27 11:44 Order name: BNP; Complete Time: 13:00 rn 04/27 11:44 Order name: SARS-COV-2 RT PCR (Document "Date of Onset" if Symptomatic); Complete Time: rn 13:25 04/27 11:44 Order name: Flu rn 04/27 11:44 Order name: Troponin High Sensitivity; Complete Time: 13:00 rn 04/27 12:31 Order name: Glucose, Ancillary Testing; Complete Time: 13:00 EDPA 04/27 13:32 Order name: Troponin High Sensitivity EDPA 04/27 13:32 Order name: Troponin High Sensitivity EDPA 04/27 13:32 Order name: Troponin High Sensitivity EDPA 04/27 11:44 Order name: Chest Single View XRAY; Complete Time: 13:00 rn 04/27 11:44 Order name: Accucheck; Complete Time: 12:17 rn 04/27 11:44 Order name: Cardiac monitoring; Complete Time: 12:02 rn 04/27 11:44 Order name: EKG - Nurse/Tech; Complete Time: 12:02 rn 04/27 11:44 Order name: IV Saline Lock - Large Bore; Complete Time: 12:02 rn 04/27 11:44 Order name: Labs collected and sent; Complete Time: 12:02 rn 04/27 11:44 Order name: O2 Per Protocol; Complete Time: 12:02 rn 04/27 11:44 Order name: O2 Sat Monitoring; Complete Time: 12:02 rn 04/27 13:31 Order name: Echo with Doppler EDPA 04/27 15:37 Order name: CT; Complete Time: 20:42 EDMS 04/27 20:07 Order name: Procalcitonin; Complete Time: 20:42 EDPA 04/27 22:23 Order name: ABG Arterial Blood Gas EDMS EC:20 Rate is 71 beats/min. Rhythm is regular. QRS [place] is Normal. IA interval is normal. QRS rn interval is normal. No Q waves. T waves are Inverted in lead aVL. No ST changes noted. Clinical impression: NSR w/ Non-specific ST/T Changes. Interpreted by me. Reviewed by me. Administered Medications: 11:50 Drug: Xopenex (levalbuterol) 1.25 mg Route: Inhalation; ld1 19:14 Follow up: Response: No adverse reaction ld1 13:10 Drug: Lasix (furosemide) 60 mg Route: IVP; Site: right antecubital; ld1 14:00 Follow up: Response: No adverse reaction ld1 Disposition Summary: 04/27/22 13:24 Hospitalization Ordered Hospitalization Status: Inpatient Admission rn Provider: Naldo Mcgee rn Location: Telemetry/[facility]Sur (Inpatient) rn Condition: Stable rn Problem: an acute exacerbation rn Symptoms: have improved rn Bed/Room Type: Standard rn Room Assignment: [id number](04/27/22 23:22) cg Diagnosis - Unspecified combined systolic (congestive) and diastolic (congestive) heart failure rn - Acute pulmonary edema rn - Dyspnea, unspecified rn - Hypoxemia rn Forms: - Medication Reconciliation Form rn - SBAR form rn Signatures: Dispatcher [employer] [facility] Paco An MD MD rn Smirch, Shelby, RN RN Nimesh Guillermo FNP-C [employer]ENTICES[employer] TRAINING REPRESENTATIVE-[facility] Funmilayo Prado RN RN Elsa Chris RN RN ld1 Corrections: (The following items were deleted from the chart) : 13:24 rn cg
--- NOTE | 2022-04-27 13:25 | ER ---
Nurse's Notes [facility] Name: Ander Del Rosario Age: 86 yrs Sex: Male : 1935 Arrival Date: 04/27/2022 Time: 11:29 Bed 8 Private MD: Diagnosis: Unspecified combined systolic (congestive) and diastolic (congestive) heart failure;Acute pulmonary edema;Dyspnea, unspecified;Hypoxemia Presentation: 04/27 11:38 Chief complaint: Patient states: I woke up yesterday with a cough and shortness of ss breath and today it has gotten worse. Coronavirus screen: Client presents with at least one sign or symptom that may indicate coronavirus-19. Standard/surgical mask placed on the client. Ebola Screen: No symptoms or risks identified at this time. 11:38 Method Of Arrival: Wheelchair ss 11:41 Initial Sepsis Screen: Does the patient meet any 2 criteria? RR > 20 per min. Does the ss patient have a suspected source of infection? No. Patient's initial sepsis screen is negative. Risk Assessment: Do you want to hurt yourself or someone else? Patient reports no desire to harm self or others. Onset of symptoms is unknown. 11:41 Acuity: DIONNA 3 ss Triage Assessment: 11:42 General: Appears distressed, obese, Behavior is calm, cooperative. Pain: Denies pain. ss EENT: No deficits noted. No signs and/or symptoms were reported regarding the EENT system. Neuro: No deficits noted. Cardiovascular: Denies chest pain, Patient's skin is warm and dry. Edema is 2+ to right midcalf and right ankle Chest pain is denied. Respiratory: Airway is patent Respiratory effort is even, labored, Respiratory pattern is regular, symmetrical, tachypnea Breath sounds with crackles bilaterally. GI: No deficits noted. No signs and/or symptoms were reported involving the gastrointestinal system. : No deficits noted. No signs and/or symptoms were reported regarding the genitourinary system. Derm: No deficits noted. No signs and/or symptoms reported regarding the dermatologic system. Musculoskeletal: No deficits noted. No signs and/or symptoms reported regarding the musculoskeletal system. Historical: - Allergies: 11:42 No Known Allergies; ss - Home Meds: :42 Unable to obtain [Active]; ss - PMHx: 11:42 "leaky valve"; CHF; Hypertension; ss - PSHx: 11:42 None; ss - Immunization history:: Adult Immunizations up to date, Client reports receiving the 2nd dose of the Covid vaccine, Client reports receiving the 1st dose of the Covid vaccine. - Social history:: Smoking status: Patient reports use of chewing tobacco. Patient denies any tobacco usage or history of. - Family history:: not pertinent. - Hospitalizations: : No recent hospitalization is reported. Screenin:59 Abuse screen: Denies threats or abuse. Denies injuries from another. Nutritional ld1 screening: No deficits noted. Tuberculosis screening: No symptoms or risk factors identified. Fall Risk None identified. Assessment: 12:59 Reassessment: See triage assessment. General:. ld1 13:35 Reassessment: Patient appears in no apparent distress at this time. Patient and/or ld1 family updated on plan of care and expected duration. Pain level reassessed. Patient is alert, oriented x 3, equal unlabored respirations, skin warm/dry/pink. Patient denies pain at this time. 15:00 Reassessment: Patient appears in no apparent distress at this time. No changes from ld1 previously documented assessment. Patient is alert, oriented x 3, equal unlabored respirations, skin warm/dry/pink. 16:00 Reassessment: Patient appears in no apparent distress at this time. Patient is alert, ld1 oriented x 3, equal unlabored respirations, skin warm/dry/pink. Patient states symptoms have not improved. 16:00 Reassessment: Notified provider and R of pt JOSE crackles. See MAR for orders. Patient ld1 states symptoms have not improved. 17:00 Reassessment: No changes from previously documented assessment. Patient and/or family ld1 updated on plan of care and expected duration. Pain level reassessed. Patient states symptoms have not improved. 18:00 Reassessment: Patient and/or family updated on plan of care and expected duration. Pain ld1 level reassessed. Patient denies pain at this time. Patient states symptoms have not improved. . 19:15 Reassessment: Patient and/or family updated on plan of care and expected duration. Pain ll3 level reassessed. Neuro: Level of Consciousness is awake, alert, obeys commands, Oriented to person, place, time, situation. Respiratory: Respiratory effort is labored, Respiratory pattern is symmetrical, Breath sounds are diminished bilaterally. the patient has moderate shortness of breath. Vital Signs: 11:38 BP 106 / 74; Pulse 76; Resp 26; Temp 98.2(TE); Pulse Ox 88% on R/A; Weight 95.25 kg ss (R); Height 5 ft. 10 in. (177.80 cm); Pain 0/10; 12:55 BP 130 / 42; Pulse 67; Resp 24; Pulse Ox 94% on 4 lpm NC; ld1 13:35 BP 127 / 43; Pulse 71; Resp 22; Pulse Ox 96% on 4 lpm NC; Pain 0/10; ld1 15:34 BP 137 / 47; Pulse 76; Resp 18; Pulse Ox 94% on 4 lpm NC; ld1 16:30 BP 133 / 46; Pulse 73; Resp 18; Pulse Ox 95% on 4 lpm NC; ld1 17:30 BP 132 / 46; Pulse 76; Resp 18; Pulse Ox 97% on 4 lpm NC; ld1 18:30 BP 117 / 32; Pulse 67; Resp 18; Pulse Ox 94% on BiPAP; ld1 19:15 BP 129 / 41; Pulse 64; Resp 25; Pulse Ox 96% on BiPAP; ll3 11:38 Body Mass Index 30.13 (95.25 kg, 177.80 cm) ss ED Course: 11:29 Patient arrived in ED. am2 11:37 Paco An MD is Attending Physician. rn 11:41 Triage completed. ss 11:42 Arm band placed on left wrist. ss 12:02 Flu Sent. ld1 12:02 SARS-COV-2 RT PCR (Document "Date of Onset" if Symptomatic) Sent. ld1 12:14 Inserted saline lock: 20 gauge in right forearm, using aseptic technique. Blood zm collected. 12:14 Troponin High Sensitivity Sent. zm 12:15 BNP Sent. zm 12:15 Blood Culture Adult (2) Sent. zm 12:15 CBC with Diff Sent. zm 12:15 CMP Sent. zm 12:15 Lactate Sent. zm 12:15 Protime (+inr) Sent. zm 12:15 Ptt, Activated Sent. zm 12:19 Elsa Chris, RN is Primary Nurse. ld1 12:21 Chest Single View XRAY In Process Unspecified. EDMS 12:59 Patient has correct armband on for positive identification. Placed in gown. Bed in low ld1 position. Call light in reach. Side rails up X2. hotel front desk clerk on. Pulse ox on. NIBP on. Door closed. Noise minimized. Warm blanket given. 12:59 No provider procedures requiring assistance completed. ld1 13:22 Naldo Mcgee MD is Hospitalizing Provider. rn 04/28 00:18 Patient admitted, IV remains in place. ll3 Administered Medications: 04/27 11:50 Drug: Xopenex (levalbuterol) 1.25 mg Route: Inhalation; ld1 19:14 Follow up: Response: No adverse reaction ld1 13:10 Drug: Lasix (furosemide) 60 mg Route: IVP; Site: right antecubital; ld1 14:00 Follow up: Response: No adverse reaction ld1 Medication: 12:59 VIS not applicable for this client. ld1 Outcome: 13:24 Decision to Hospitalize by Provider. rn 04/28 00:44 Admitted to Tele accompanied by nurse, via stretcher, room 416, with oxygen, with ll3 chart, Report called to SULMA Blake Condition: stable Instructed on the need for admit, Demonstrated understanding of instructions. 00:44 Patient left the ED. ll3 Signatures: Dispatcher [employer] EDMS Paco An MD MD rn Smirch, Shelby, RN RN ss Moreno, Amanda am2 Elsa Chris RN RN ld1 Tere Contreras RN RN ll3 Liz Gerber Corrections: (The following items were deleted from the chart) 04/27 19:22 19:15 BP 129 / 41; Pulse 64bpm; Pulse Ox 96% BiPAP; ll3 ll3
--- NOTE | 2022-04-27 15:15 | P.HP ---
Certification for Inpatient Patient admitted to: Inpatient With expected LOS: >2 Midnights Patient will require the following post-hospital care: None Practitioner: I am a practitioner with admitting privileges, knowledge of patient current condition, hospital course, and medical plan of care. Services: Services provided to patient in accordance with Admission requirements found in Title 42 Section 412.3 of the Code of Federal Regulations Patient History Date of Service: 04/27/22 Reason for admission: CHF Exacerbation History of Present Illness: Mr. Ander Del Rosario is a pleasant 86-year-old male who has a past medical history of hypertension who presents to the [facility] Emergency Department for shortness of breath. He reports that, over the last 1 to 2 days, he has been experiencing progressively worsening shortness of breath. He states that this has been associated with a sore throat and a dry cough. He denies any obvious inciting or alleviating factors. He denies any recent medication changes. He reports compliance with his medications. He states that he takes 56 medications at home, but he cannot remember the names. He knows that one of the medications is a blood pressure pill and the other medication is a water pill. He has not tried taking anything prior to arrival. On review of systems, he denies any fevers, chills, headaches, dizziness, syncope, weakness, chest pain, palpitations, wheezing, abdominal pain, nausea/vomiting, diarrhea, constipation, hematochezia, melena, dysuria, hematuria, myalgia, or any other symptoms. He presented to the Emergency Department for further evaluation. Upon presentation, his vital signs were notable for a respiratory rate of 26 breaths/min and an SpO2 of 88% on room air. His laboratory studies were notable for a creatinine of 2.31 (was 1.21 on 03/02/2020) and a NT proBNP of 7390. EKG revealed sinus rhythm with premature atrial complexes and a prolonged QTc int erval of 530 ms. There was no STEMI criteria noted. Chest x-ray revealed "moderate CHF". In the Emergency Department, she was given levalbuterol and furosemide. He was admitted to the General Internal Medicine service for further evaluation. Allergies No Known Allergies Allergy (Unverified 04/27/22 15:51) Home medications list reviewed: No (Takes 5-6 pills, but does not know names) - Past Medical/Surgical History -: Congestive heart failure -: Hypertension Past Surgical History: Reviewed- Non-Contributory Psychosocial/ Personal History: Patient lives at home alone - Family History Family History: Reviewed- Non-Contributory - Social History Smoking Status: Former smoker Alcohol use: No CD- Drugs: No Caffeine use: No Review of Systems General: Unremarkable Eyes: Unremarkable Respiratory: Cough, Dry, Shortness of Breath, SOB with Excertion Cardiovascular: Unremarkable Gastrointestinal: Unremarkable Genitourinary: Unremarkable Musculoskeletal: Unremarkable Integumentary: Unremarkable Neurological: Unremarkable Physical Examination - Vital Signs Temperature: 98.2 F Blood Pressure: 106/74 Pulse: 76 Respirations: 26 Pulse Ox (%): 96 - Physical Exam General: Alert, In no apparent distress, Oriented x3 Neck: Supple, JVD not distended Respiratory: Crackles/rales, Rhonchi/gurgles Cardiovascular: No edema, Regular rate/rhythm, Normal S1 S2, No gallops, No rubs, No murmurs Gastrointestinal: Normal bowel sounds, Soft and benign, Non-distended, No tenderness, No rebound, No guarding Musculoskeletal: No clubbing Integumentary: No rashes Neurological: Normal gait, Normal strength at 5/5 x4 extr, Cranial nerves 3-12 intact - Studies Laboratory Data (last 24 hrs) 04/27/22 12:10: PT 14.5 H, INR 1.31, APTT 30.3 04/27/22 12:10: Sodium 142, Potassium 3.9, BUN 66 H, Creatinine 2.31 H, Glucose 124 H, Total Bilirubin 2.2 H, AST 30, ALT 15, Alkaline Phosphatase 83 04/27/22 12:10: WBC 4.10 L, Hgb 10.6 L, Hct 31.7 L, Plt Count 126 L Assessment and Plan - Plan # Acute on Chronic Decompensated Congestive Heart Failure with Unknown Ejection Fraction # Hypertension - Consult Cardiology - recommendations appreciated - Ordered transthoracic echocardiogram - Diuresis with IV furosemide for today - Continue home meds once verified - NT-Pro BNP = 7,390 - Daily weights - Strict I/O - Cardiac diet, 2 L fluid restriction, 2 g Na restriction # Acute Hypoxic Respiratory Failure - likely secondary to Community-Acquired Pneumonia and Congestive Heart Failure Currently, he is on 4 L nasal cannula, with improvement of his SpO2 readings to 96 %. - Evaluation thus far: - He does not currently meet sepsis criteria - Procalcitonin = pending - ABG = pending - Chest x-ray = "Moderate CHF." - CT chest = "Moderate airspace opacities are present in both lung bases posteriorly most compatible with bibasilar pneumonia." - Management plan: - Consulted Pulmonary Medicine - recommendations appreciated - Consulted Respiratory Therapy - Supplemental oxygen to maintain SpO2 > 92% - Started ceftriaxone + doxycycline (chosen over azithromycin due to prolonged QTc) - PRN benzonatate - Encouraged incentive spirometry # KDIGO Stage II Acute Kidney Injury - suspect Cardiorenal Syndrome - Creatinine = 2.31 (was 1.21 on 03/02/2020) - Urinalysis = pending - IV diuretics as mentioned above - Monitor creatinine and urine output - If worsening, obtain renal ultrasound - Renally dose medications Naldo Mcgee M.D. - Advance Directives Does patient have a Living Will: No Does patient have a Durable POA for Healthcare: No
--- NOTE | 2022-04-27 15:36 | RAD REPORT ---
EXAM DESCRIPTION: CT - Thorax Wo Con CLINICAL HISTORY: Chest pain hypoxia COMPARISON: Thorax Wo Con dated 06/12/2019; Chest Single View dated 04/27/2022 FINDINGS: Moderate airspace opacities are present in both lung bases posteriorly likely representing pneumonia. No pleural thickening or pleural effusion. No pneumothorax. No axillary, mediastinal or hilar adenopathy. No concerning bony finding. No gross upper abdominal finding. All CT scans are performed using dose optimization technique as appropriate and may include automated exposure control or mA/KV adjustment according to patient size. IMPRESSION: Moderate airspace opacities are present in both lung bases posteriorly most compatible w ith bibasilar pneumonia.
[2022-04-27] MEDS ORDERED: CEFTRIAXONE 1,000 MG in NA CHLORIDE 0.9% 50 ML IVPB SCH ×2 (15:41→16:53)
[2022-04-27] MEDS ORDERED: DOXYCYCLINE 100 MG in NA CHLORIDE 0.9% 100 ML IVPB SCH (15:42)
[2022-04-27] MEDS ORDERED: BENZONATATE 100 MG CAP PO PRN (16:42)
[2022-04-27] MEDS: DOXYCYCLINE 100 MG in NA CHLORIDE 0.9% 100 ML IVPB SCH ×2 (16:52→21:00)
[2022-04-27] MEDS ORDERED: CEFTRIAXONE 1000 MG/VIAL ONE ×2 (21:03→21:20)
[2022-04-27] MEDS ORDERED: NA CHLORIDE 0.9% 50 ML ONE ×2 (21:03→21:20)
[2022-04-27] MEDS: CEFTRIAXONE 1,000 MG in NA CHLORIDE 0.9% 50 ML IVPB SCH (21:10)
[2022-04-27 22:19] LABS: Arterial Blood Carboxyhemoglob 1.5 % (0-1.5); Blood Gas Oxyhemoglobin 89.7 % (94-97); Blood O2 Saturation 92.1 % (92-98.5)
[2022-04-28] MEDS: ALBUTEROL 2.5 MG/3 ML NEB SOL NEB SCH ×4 (01:12→20:00)
[2022-04-28] MEDS: IPRATROPIUM BROM 0.5MG/2.5ML NEB SCH ×4 (01:12→20:00)
[2022-04-28] MEDS: METHYLPREDNISOLONE 40 MG INJ IV SCH ×3 (01:19→18:22)
[2022-04-28] MEDS: DOXYCYCLINE 100 MG in NA CHLORIDE 0.9% 100 ML IVPB SCH ×2 (01:19→09:07)
[2022-04-28 06:26] LABS: Absolute Lymphocytes (CBC) 0.6 K/uL (0.7-4.9); MCV 83.9 fL (80-100); MPV 9.1 fL (7.6-11.3); RBC Red Blood Cell Count 3.57 M/uL (4.33-5.43)
[2022-04-28 06:33] LABS: Albumin 2.4 g/dL (3.4-5.0); Magnesium 2.4 mg/dL (1.8-2.4); Potassium 4.2 mmol/L (3.5-5.1); Protein, Total 6.3 g/dL (6.4-8.2)
[2022-04-28] MEDS ORDERED: FUROSEMIDE 40 MG/4 ML VIAL IV SCH (09:00)
[2022-04-28] MEDS: CEFTRIAXONE 1,000 MG in NA CHLORIDE 0.9% 50 ML IVPB SCH (09:09)
[2022-04-28 09:29] LABS: Blood Morphology Comment NOTED (NOT SEEN); Platelet Estimate ADEQ
[2022-04-28 09:33] LABS: Dohle Bodies PRESENT; Toxic Granulation 2+
--- NOTE | 2022-04-28 18:56 | P.PN ---
Subjective Date of Service: 04/28/22 Chief Complaint: CHF Exacerbation No acute events overnight. He reports that he continues to feel a dry cough, but his shortness of breath is improving. Review of Systems 10-point ROS is otherwise unremarkable Respiratory: Cough, Dry, Shortness of Breath Physical Examination - Vital Signs Temperature: 97.4 F Blood Pressure: 163/71 Pulse: 70 Respirations: 18 Pulse Ox (%): 100 - Studies Microbiology Data (last 24 hrs): 04/27/22 12:25 Blood - Blood Gram Stain - Final 04/27/22 12:10 Blood - Blood Blood Culture Gram Stain - Final 04/27/22 12:10 Blood - Blood Gram Stain - Final Assessment And Plan - Plan - Physical Exam General: Alert, In no apparent distress, Oriented x3 Neck: Supple, JVD mildly distended Respiratory: Crackles/rales, Rhonchi/gurgles Cardiovascular: 1+ bilateral lower extremity pitting edema, Regular rate/rhythm, Normal S1 S2, No gallops, No rubs, No murmurs Gastrointestinal: Normal bowel sounds, Soft and benign, Non-distended, No tenderness, No rebound, No guarding Musculoskeletal: No clubbing Integumentary: No rashes Neurological: Normal gait, Normal strength at 5/5 x4 extr, Cranial nerves 3-12 intact # Acute Hypoxemic Respiratory Failure - likely secondary to Community-Acquired Pneumonia and Congestive Heart Failure Currently, he is on 2 L nasal cannula, with improvement of his SpO2 readings to 100 %. - Evaluation thus far: - Procalcitonin = 6.29 - ABG = pH 7.38, PCO2 47, PO2 62.6 - Chest x-ray = "Moderate CHF." - CT chest = "Moderate airspace opacities are present in both lung bases posteriorly most compatible with bibasilar pneumonia." - Management plan: - Consulted Pulmonary Medicine - recommendations appreciated - Consulted Respiratory Therapy - Supplemental oxygen to maintain SpO2 > 92% - Started ceftriaxone + doxycycline (chosen over azithromycin due to prolonged QTc) - PRN benzonatate - Encouraged incentive spirometry # Sepsis likely secondary to Community-Acquired Pneumonia with Gram-Positive Bacteremia She met sepsis criteria based on HR > 90 bpm, RR > 20 breaths/min, and > 10% bands and the suspected source is pneumonia with bacteremia. Although his creatinine >2.0 mg/dL, I suspect this to be more cardiorenal syndrome rather than sepsis-induced. - Sepsis order set was initiated - Initial Lactate was 1.6, trend - Blood cultures drawn before antibiotics were given - 3/4 positive for gram- positive cocci in chains and pairs - Broad spectrum antibiotics started: Ceftriaxone + Doxycycline - switched to Vancomycin + Piperacillin-Tazobactam - 30 mL/kg of IV fluids was not administered given SBP > 90, MAP > 65, lactic acid < 4, and concern for volume overload due to CHF # Acute on Chronic Decompensated Congestive Heart Failure with Unknown Ejection Fraction # Hypertension - Consult Cardiology - recommendations appreciated - Ordered transthoracic echocardiogram - Diuresis with IV furosemide for today - Continue home meds once verified - NT-Pro BNP = 7,390 - Daily weights - Strict I/O - Cardiac diet, 2 L fluid restriction, 2 g Na restriction # KDIGO Stage II Acute Kidney Injury - suspect Cardiorenal Syndrome - Creatinine = 2.31 -> 2.47 (was 1.21 on 03/02/2020) - Urinalysis = pending - IV diuretics as mentioned above - Monitor creatinine and urine output - If worsening, obtain renal ultrasound - Renally dose medications Naldo Mcgee M.D. Discharge Plan: Home Plan to discharge in: Greater than 2 days
[2022-04-28] MEDS ORDERED: PIPER TAZO 2.25 GM in NA CHLORIDE 0.9% 50 ML IV SCH (19:08)
[2022-04-28] MEDS: PIPER TAZO 3.375 GM in NA CHLORIDE 0.9% 50 ML IV SCH (19:30)
[2022-04-28] MEDS ORDERED: VANCOMYCIN 2.5 GM in NA CHLORIDE 0.9% 500 ML IVPB ONE (20:00)
[2022-04-28] MEDS ORDERED: VANCOMYCIN 1 GM in NA CHLORIDE 0.9% 250 ML IVPB SCH (20:00)
[2022-04-28] MEDS ORDERED: VANCOMYCIN 1 GM/VIAL ONE (21:40)
[2022-04-28] MEDS ORDERED: VANCOMYCIN 500 MG/VIAL ONE (21:42)
[2022-04-28] MEDS ORDERED: NA CHLORIDE 0.9% 500 ML ONE (21:43)
[2022-04-29] MEDS: PIPER TAZO 3.375 GM in NA CHLORIDE 0.9% 50 ML IV SCH ×2 (01:00→10:04)
[2022-04-29] MEDS: METHYLPREDNISOLONE 40 MG INJ IV SCH ×2 (01:20→10:03)
[2022-04-29] MEDS: IPRATROPIUM BROM 0.5MG/2.5ML NEB SCH ×4 (01:30→20:26)
[2022-04-29] MEDS: ALBUTEROL 2.5 MG/3 ML NEB SOL NEB SCH ×4 (01:30→20:26)
[2022-04-29 03:46] LABS: Absolute Lymphocytes (CBC) 0.6 K/uL (0.7-4.9); Hematocrit 29.5 % (39.6-49.0); Lymphocytes % 14.1 % (15.3-44.8); MCV 85.2 fL (80-100); MPV 9.3 fL (7.6-11.3); RBC Red Blood Cell Count 3.47 M/uL (4.33-5.43)
[2022-04-29 03:55] LABS: Albumin 2.3 g/dL (3.4-5.0); Bilirubin Total 0.7 mg/dL (0.2-1.0); Potassium 4.3 mmol/L (3.5-5.1); Protein, Total 6.2 g/dL (6.4-8.2)
[2022-04-29] MEDS: FUROSEMIDE 20 MG/ 2ML VIAL IV SCH (10:03)
--- NOTE | 2022-04-29 11:34 | P.CNS ---
Date of Consult: 04/29/22 Reason for Consult: CHF respiratory failure Chief Complaint: CHF Exacerbation History of Present Illness: Patient is 86 years of age with a history of hypertension admitted from the emergency department with shortness of breath and a dry cough able to cough up any phlegm prior history of obstructive airways disease denies any symptoms of sepsis presented with tachypnea and hypoxemia has improved since admission acute on chronic renal failure Allergies No Known Allergies Allergy (Verified 04/28/22 00:44) - Past Medical/Surgical History -: Congestive heart failure -: Hypertension Psychosocial/ Personal History: Patient lives at home alone - Social History Smoking Status: Never smoker Alcohol use: No CD- Drugs: No Caffeine use: No Review of Systems 10-point ROS is otherwise unremarkable General: Weakness Respiratory: Cough, Shortness of Breath Physical Examination Temp Pulse Resp BP Pulse Ox 97.0 F 67 20 181/71 H 100 04/29/22 08:00 04/29/22 10:03 04/29/22 08:00 04/29/22 10:03 04/29/22 08:00 General: Alert, In no apparent distress, Oriented x3 Respiratory: Diminished Cardiovascular: No edema, Normal S1 S2 Gastrointestinal: Normal bowel sounds, Soft and benign - Problems (1) Respiratory failure Current Visit: Yes Status: Acute Plan: Patient is 86 years of age with a history of hypertension admitted with hypoxic hypercapnic respiratory failure also has acute on chronic renal failure x-ray diminished lung volumes cardiomegaly CRAB PICKER is over 7000 probably has a combination of nongap metabolic acidosis and some respiratory acidosis patient's blood pressure is elevated DC steroids for now Qualifiers: Chronicity: acute on chronic (2) Streptococcus agalactiae infection Current Visit: Yes Status: Acute Plan: Blood cultures are positive sensitive to penicillin DC vancomycin for now and Zosyn (3) Acute on chronic renal failure Current Visit: Yes Status: Acute Plan: Consult nephrology Qualifiers: Chronic kidney disease stage: stage 4 (severe)
--- NOTE | 2022-04-29 12:40 | CON ---
Date of Consultation: 04/28/2022 Reason For Consultation: Shortness of breath, congestive heart failure, possible pneumonia. History Of Present Illness: Mr. Del Rosario is 86. Has had a history of congestive heart failure, hyperten sonia, and leaky valve in the past. He sees Dr. Kamara as an outpatient. Came in with shortness of rafa ath. Chest x-ray showed possible pneumonia. Has elevated procalcitonin. Creatinine is 2.47. His B SCREENING TECHNICIAN was 7000. He has improved on inhalers, steroids, antibiotics, and Lasix, but his kidney function has worsened. He denied chest pain, nausea, vomiting, diaphoresis, palpitations, or syncope. Denied any fever or chills. Denied any PND or orthopnea, but has had some shortness of breath and pedal ed jenna. Past Medical History: Stable and as stated earlier. Allergies: NONE. Review of Systems: Negative. Social History: Negative. Medications: As stated earlier. Physical Examination: Vital Signs: Stable. He is in sinus rhythm. Afebrile. HEENT: Negative. Neck: Supple without any bruit, lymphadenopathy, JVD, or thyromegaly. Chest: Reveals some rales both bases. Cardiac: Revealed a regular rhythm and rate with S4 gallops. No murmurs or rubs. Abdomen: Benign. Extremities: Revealed trace edema. Diagnostic Data: As stated earlier. Impression And Plan: I think Mr. Del Rosario probably has more pneumonia picture than congestive heart fail ure. Using Lasix, his creatinine went up. I will suggest Nephrology consultation, hold the Lasix. Continue inhalers, steroids, and antibiotics. Obtain an echocardiogram later. His hypertension is w ell controlled. He has a history of leaky valve. Echocardiogram will help us decide what he has. I will continue to follow him. MARIANA/JHNO Voice ID: [id number] Report ID: [id number]
--- NOTE | 2022-04-29 13:10 | PN ---
Date of Progress Note: 04/29/2022 Mr. Del Rosario had came in with congestive heart failure and pneumonia. I really think he has more pneumon ia and congestive heart failure. He has elevated procalcitonin. Creatinine is 2.47, pO2 of 62, pCO2 47 with a pH of 7.38. Echocardiogram is pending if he stays here. His BNP was 7000. He remains on inhalers, steroids, antibiotics as well as Lasix. His creatinine had gone up to 2.66. Maybe Lasix should be held. Nephrology should be involved. He needs better blood pressure control. I will disc uss the case further with Dr. Mcgee. MARIANA/JHON Voice ID: [id number] Report ID: [id number]
--- NOTE | 2022-04-29 15:35 | P.PN ---
Subjective Date of Service: 04/29/22 Chief Complaint: CHF Exacerbation No acute events overnight. He appears to be improving clinically, but reports that his cough and shortness of breath are unchanged. Review of Systems 10-point ROS is otherwise unremarkable Respiratory: Cough, Dry, Shortness of Breath Physical Examination - Vital Signs Temperature: 97.0 F Blood Pressure: 154/68 Pulse: 68 Respirations: 18 Pulse Ox (%): 99 - Studies Microbiology Data (last 24 hrs): 04/27/22 12:25 Blood - Blood Gram Stain - Final 04/27/22 12:10 Blood - Blood Aerobic Blood Culture - Final Streptococcus Agalactiae [facility] B 04/27/22 12:10 Blood - Blood Blood Culture Gram Stain - Final 04/27/22 12:10 Blood - Blood Anaerobic Blood Culture - Final Streptococcus Agalactiae [facility] B 04/27/22 12:10 Blood - Blood Gram Stain - Final Assessment And Plan - Plan - Physical Exam General: Alert, In no apparent distress, Oriented x3 Neck: Supple, JVD mildly distended Respiratory: Crackles/rales, Rhonchi/gurgles Cardiovascular: 1+ bilateral lower extremity pitting edema, Regular rate/rhythm, Normal S1 S2, No gallops, No rubs, No murmurs Gastrointestinal: Normal bowel sounds, Soft and benign, Non-distended, No t enderness, No rebound, No guarding Musculoskeletal: No clubbing Integumentary: No rashes Neurological: Normal gait, Normal strength at 5/5 x4 extr, Cranial nerves 3-12 intact # Acute Hypoxemic Respiratory Failure - likely secondary to Community-Acquired Pneumonia and Congestive Heart Failure Currently, he is on 2 L nasal cannula, with improvement of his SpO2 readings to 100 %. - Evaluation thus far: - Procalcitonin = 6.29 - ABG = pH 7.38, PCO2 47, PO2 62.6 - Chest x-ray = "Moderate CHF." - CT chest = "Moderate airspace opacities are present in both lung bases posteriorly most compatible with bibasilar pneumonia." - Management plan: - Consulted Pulmonary Medicine - recommendations appreciated - Consulted Respiratory Therapy - Supplemental oxygen to maintain SpO2 > 92% - Continue antibiotics as mentioned below - PRN benzonatate - Encouraged incentive spirometry # Sepsis likely secondary to Community-Acquired Pneumonia with Group B Streptococcus Agalactiae Bacteremia She met sepsis criteria based on HR > 90 bpm, RR > 20 breaths/min, and > 10% bands and the suspected source is pneumonia with bacteremia. Although his creatinine >2.0 mg/dL, I suspect this to be more cardiorenal syndrome rather than sepsis-induced. 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 # Hypertension - Consult Cardiology - recommendations appreciated - Ordered transthoracic echocardiogram - Diuresis with IV furosemide for today - Continue home meds once verified - NT-Pro BNP = 7,390 - Daily weights - Strict I/O - Cardiac diet, 2 L fluid restriction, 2 g Na restriction # KDIGO Stage II Acute Kidney Injury - suspect Cardiorenal Syndrome - Creatinine = 2.31 -> 2.47 -> 2.66 (was 1.21 on 03/02/2020) - Urinalysis = pending - IV diuretics as mentioned above - Monitor creatinine and urine output - If worsening, obtain renal ultrasound - Renally dose medications # Nutrition Status - Pending swallow study - If failed, may require NG tube with tube feed initiation Naldo Mcgee M.D.
--- NOTE | 2022-04-29 20:34 | RAD REPORT ---
EXAM DESCRIPTION: US - Renal Ultrasound-Complete - 04/29/2022 8:19 pm CLINICAL HISTORY: Acute and chronic renal failure COMPARISON: None. FINDINGS: The right kidney measures 10 cm with an increased echotexture. 2.3 centimeter cyst The left kidney measures 11 cm with an increased echotexture. 4.8 centimeters cyst Hydronephrosis is not seen. No gross abnormality of bladder is noted IMPRESSION: Increased renal echotexture consistent with parenchymal disease Renal cysts
[2022-04-29] MEDS: AMPICILLIN/SULBACT 3 GM in NA CHLORIDE 0.9% 100 ML IVPB SCH (22:02)
[2022-04-30] MEDS ORDERED: MORPHINE 2 MG/ML SYR IV ONE ×2 (01:51→04:30)
[2022-04-30] MEDS: ALBUTEROL 2.5 MG/3 ML NEB SOL NEB SCH ×4 (02:00→20:05)
[2022-04-30] MEDS: IPRATROPIUM BROM 0.5MG/2.5ML NEB SCH ×4 (02:00→20:05)
[2022-04-30 03:52] LABS: Absolute Lymphocytes (CBC) 0.7 K/uL (0.7-4.9); Hematocrit 33.7 % (39.6-49.0); MPV 9.5 fL (7.6-11.3); RBC Red Blood Cell Count 3.97 M/uL (4.33-5.43)
[2022-04-30 04:07] LABS: Albumin 2.5 g/dL (3.4-5.0); Bilirubin Total 0.8 mg/dL (0.2-1.0); Protein, Total 6.9 g/dL (6.4-8.2)
--- NOTE | 2022-04-30 07:55 | RAD REPORT ---
EXAM DESCRIPTION: CT - Abdomen Pelvis Wo Contrast - 04/30/2022 7:30 am CLINICAL HISTORY: Abdominal pain /right abdominal pain COMPARISON: None TECHNIQUE: Computed axial tomography of the abdomen and pelvis was obtained. IV and oral contrast we re not requested. All CT scans are performed using dose optimization technique as appropriate and may include automated exposure control or mA/KV adjustment according to patient size. FINDINGS: The evaluation of solid organs, vessels and bowel is limited secondary to the lack of con trast administration. Moderate bibasilar lung opacities. Liver, spleen, pancreas and right adrenal gland grossly normal. Small nodule left adrenal gland is nonspecific but probably an adenoma. Thickening of the wall of the second portion of duodenum. Extraluminal air is present. Small amount o f ill-defined fluid surrounds duodenum. There is stranding within the adjacent fat. Small densities are present the gallbladder. The wall does not appear thickened. Mild stranding withi n the adjacent fat probably related to inflammatory changes involving the duodenum rather than primar y gallbladder pathology Bilateral renal cysts No evidence diverticulitis. Moderate left inguinal hernia contains fat IMPRESSION: Wall thickening of the second portion of the duodenum with extraluminal air and inflamma tory changes. This may indicate a perforated ulcer or perforated mass. Cholelithiasis is suspected Bilateral pulmonary opacities may indicate pneumonia Patient's nurse Faith was notified 7:50 a.m. April 30, 2022
[2022-04-30] MEDS ORDERED: VANCOMYCIN 1.75 GM in NA CHLORIDE 0.9% 500 ML IVPB SCH (08:00)
[2022-04-30] MEDS: FUROSEMIDE 20 MG/ 2ML VIAL IV SCH (08:07)
[2022-04-30] MEDS: AMPICILLIN/SULBACT 3 GM in NA CHLORIDE 0.9% 100 ML IVPB SCH ×2 (08:07→21:06)
[2022-04-30] MEDS: Ringers Lactate 1,000 ML IV SCH (11:17)
--- NOTE | 2022-04-30 12:22 | CON ---
Date of Consultation: 04/30/2022 Reason For Service: Findings in the duodenum. History Of Present Illness: This is the case of an -[id number]-[id number] patient, who was admitted abo mt 4 days ago for shortness of breath. He was diagnosed with pneumonia. He also has history of hear t disease with congestive heart failure. Last night, he had some abdominal pain and then the CAT sca n was ordered and was done this morning and then during the CAT scan, the patient was found to have a possible gallstone, but also the radiologist believed there was some swelling around duodenum that c ould be either be a tumor or could be a gastric ulcer or even at the beginning of a gastric ulcer per foration because he has a small air nearby. The patient right now has no epigastric pain and he is a symptomatic, but the primary doctor believes that that was prudent to rule that out and I agree with that. He has been eating. When they came immediately there, he seemed to be n.p.o. and I came to [facility] immediately. As I discussed the case with primary doctor, he has at this moment no abdomi nal pain. No guarding or rebound. No peritoneal signs. He cannot give much information or the son nearby when was his last endoscopy if any. There is no history of nausea, vomiting, diarrhea, dysuri a, hematuria, hematochezia, or melena. He has been treated for the last few days for his lung diseas e and also moderate congestive heart failure. Review of Systems: See my H and P. Ten points otherwise unremarkable. Social History: He does not smoke, although he used to. He drinks alcohol occasionally. Family History: Noncontributory at this moment. Past Medical History: Includes congestive heart failure, hypertension. Medications: Reviewed and noticed. He has been on inhalers, on Lasix. Physical Examination: General: The patient is awake, alert. HEENT: Pupils are equal and reactive. Anicteric. Neck: Supple. Chest: Clear. Abdomen: Soft and depressible. No guarding or rebound. No peritoneal signs. Rectal: Deferred. Extremities: Good capillary refill. No Hernandez sign. No psoas signs. Laboratory Data: WBC count is 9.4 with hemoglobin of 11.4 and platelets of 180. INR is 1.3. Sodium is 147, creatinine is 2.57, total bilirubin of 0.8. The patient had a chest CT done in the second o f this month. That chest CT shows moderate airspace opacities are present in both lung bases, most c onsistent with bibasilar pneumonia per Dr. Regalado. A renal ultrasound shows increased renal echotextur e consistent with parenchymal disease and renal cyst. CAT scan of the abdomen and pelvis shows wall thickening of the second portion of the duodenum with extraluminal air and inflammatory changes. Thi s may indicate a perforated ulcer or perforated mass. Cholelithiasis is suspected. Bilateral pulmon natalia opacities may indicate pneumonia and this is per Dr. Burden. Assessment: This is an 86-year-old patient, who came for multiple medical issues, congestive heart f ailure, pneumonia, has been here for 4 days already. Midnight last night, the patient found to have right upper quadrant abdominal pain, although this morning is gone. The CAT scan was done this [facility] and then showing the finding as described before. He is asymptomatic at this moment. No nausea, no vomiting, no abdominal pain. No Hernandez signs. The CAT scan shows also cholelithiasis and also a left inguinal hernia. I discussed with the patient and with his son next different options. We can go at this moment for emergent laparotomy, exploratory laparotomy. This may clarify the area, althou gh if we find a tumor in that area, we may not be able to fix that. If we find a perforation, we ivet ht patch it. The CAT scan is not sure if the swelling is coming from the gallbladder or the duodenum itself, so they understand that part and they feel like at this moment with the information we have and especially when he is asymptomatic at this moment that based on his age, his congestive heart eric lure, they prefer not to go for surgical intervention. I understand that part, but I explained to em also the pros and cons of that decision obviously. If he decides to continue conservative treatme nt, then I preferred the patient to be on proton pump inhibitors and n.p.o. including water, serial a bdominal examinations. He understands that if clinically he deteriorates, we might continue with the previous surgical plan with benefits, alternatives, and risks including, but not limited to infectio n, bleeding, damage to adjacent structures, anesthesia complication, negative exploration, [place], and ev en . If he does better and then the CAT scan repeated and shows there is not being in that area , still I recommend the patient to have nonsurgical in that area. I still believe this patient shoul d have upper endoscopy, although the timing of that will be discussed with the GI doctors doing it to o soon and also may effect the patient's conditions. We discussed this for now with them the pros an d cons of it. The patient seems to understand also the pros and cons of this and after I make sure t hey have a full understanding of the pros and cons of the decision, then in that case, we are going t o hold the surgical intervention and we will proceed with the plan of conservative treatment change b ased on clinical findings or any findings once again that we do in the next 24 hours imaging erickson. MARISELA/JHON Voice ID: [id number] Report ID: [id number]
[2022-04-30] MEDS: PANTOPRAZOLE INJ 80 MG in NA CHLORIDE 0.9% 250 ML IV SCH ×2 (13:04→22:00)
--- NOTE | 2022-04-30 14:19 | P.PN ---
Subjective Date of Service: 04/30/22 Chief Complaint: CHF Exacerbation Subjective: New changes (had abd pain overnight and CT abd/pelvis done revealed suspected perforated duodenal ulcer.) Review of Systems Gastrointestinal: Abdominal Pain Physical Examination - Vital Signs Temperature: 97.4 F Blood Pressure: 184/76 Pulse: 65 Respirations: 16 Pulse Ox (%): 94 - Physical Exam General: Alert, Oriented x3 HEENT: Atraumatic, Normocephalic Neck: Supple Respiratory: Normal air movement Cardiovascular: Regular rate/rhythm, Normal S1 S2 Gastrointestinal: Tenderness (right upper quadrant.) Musculoskeletal: No swelling Integumentary: No breakdown Neurological: Normal speech, Normal strength at 5/5 x4 extr Assessment And Plan - Plan # Acute Hypoxemic Respiratory Failure - likely secondary to Community-Acquired Pneumonia and Congestive Heart Failure Currently, he is on 2 L nasal cannula, with improvement of his SpO2 readings to 100 %. - Evaluation thus far: - Procalcitonin = 6.29 - ABG = pH 7.38, PCO2 47, PO2 62.6 - Chest x-ray = "Moderate CHF." - CT chest = "Moderate airspace opacities are present in both lung bases posteriorly most compatible with bibasilar pneumonia." - Management plan: - Consulted Pulmonary Medicine - recommendations appreciated - Consulted Respiratory Therapy - Supplemental oxygen to maintain SpO2 > 92% - Continue antibiotics as mentioned below - PRN benzonatate - Encouraged incentive spirometry # Sepsis likely secondary to Community-Acquired Pneumonia with Group B Streptococcus Agalactiae Bacteremia - Sepsis order set was initiated - Blood cultures drawn before antibiotics were given - / positive for Stre ptococcus Agalactiae Group B - Broad spectrum antibiotics started: Ceftriaxone + Doxycycline - switched to Vancomycin + Piperacillin-Tazobactam - Transitioned to ampicillin-sulbactam (renally dosed) # 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 He did developed suspected duodenal perforation and antihypertensive medication with diuretic dose has been held. We will follow symptoms closely. # KDIGO Stage II Acute Kidney Injury - suspect Cardiorenal Syndrome - Creatinine is stable at 2.57 today. In view of rising sodium level and suspicion for perforation in the intestine, gentle hydration will be started. # Nutrition Status - Pending swallow study. Will keep n.p.o. for now in view of development of suspected duodenal perforation. #Suspected duodenal perforation. General surgery has been consulted for management recommendation based on CT abdomen/pelvis finding of suspected duodenal perforation. Patient remains clinically stable with mild to moderate pain in the right upper quadrant. No progressive abdominal distention noted. No bleeding per rectum or vomiting of blood reported. IV pantoprazole dose has been started per surgeon recommendations. General surgeon has evaluated patient and there is possible cause for intervention in a.m. if his clinical symptomatology/repeat CT abdomen and pelvis is significantly suggestive of perforation. Patient and family discussed with about above findings and management plan. Will follow his symptoms and intervene as needed.
--- NOTE | 2022-04-30 15:40 | CON ---
History Of Present Illness: This is an 86-year-old male. I was consulted for evaluation of gram-pos itive bacteremia by strep agalactiae. The patient is currently being treated with Unasyn. The patie nt came in on April 27 with significant past medical history of hypertension and shortness of br eath. The patient's shortness of breath was getting worse over a period of couple of days with dry c ough, now mostly with abdominal discomfort. The patient's initial chest x-ray showed that he has mod erate CHF and CT of his chest showed that he has moderate airspace opacity in both lungs compatible w ith bibasilar pneumonia and CT abdomen and pelvis done today shows the patient has wall thickening of the second portion of the duodenum with extraluminal air and inflammatory changes may indicate a per forated ulcer or perforated mass. Cholelithiasis was suspected. Bilateral pulmonary opacities may i ndicate pneumonia. The patient is currently n.p.o. for possible surgical evaluation by surgical team . Past Medical History: Congestive heart failure, hypertension. Social History: Nonsmoker, nondrinker. Family History: Noncontributory. Medications: Unasyn. See MAR for other medications. Allergies: NO KNOWN DRUG ALLERGIES. Review of Systems: A 10-point review was performed. Physical Examination: General: This is an 86-year-old male, lying in bed, not on nasal cannula. Vital Signs: Temperature 97, pulse 65, respirations 16, blood pressure 184/76 on 1 L nasal cannula a t 94% saturation. HEENT: Unremarkable. Neck: Supple. Lungs: Basal crackles. Heart: S1, S2. Regular. Abdomen: Soft, nontender. Abdomen is mildly soft. Bowel sounds decreased. Guarding noted on the r ight upper quadrant area. Extremity: No edema. Laboratory Data: Shows WBC 9.4, hemoglobin 9.4, platelets are 180. Hematology shows the patient was pancytopenic. Chemistry shows sodium 147, potassium 4, chloride 111, bicarb 26, BUN 125, creatinine 2.5, glucose is 163. Albumin level is 2.5. Blood cultures from 04/27 growing Streptococcus agalact iae group B, sensitive to penicillin, vancomycin and Levaquin. Repeat blood cultures negative for 24 hours. Assessment And Plan: 1.An 86-year-old male with perforated duodenal ulcer versus mass, coming in with pancytopenia, sepsi s, bilateral pulmonary infiltrates, possible pneumonitis versus congestive heart failure. Blood cult ures positive for Streptococcus agalactiae group B. The patient is able to tolerate Unasyn well. We will continue antibiotic for total of 14 days. Depending on surgical intervention, we will decide t he duration of antibiotic, consider starting TPN if surgery delayed or medication support is not avai lable for more than 2 days. 2.Moderate protein-calorie malnourishment. Continue with supportive care and monitor for signs of i nfection with fever and WBC count. Thank you Dr. Mcgee and Dr. Adams for consult. NF/MODL Voice ID: [id number] Report ID: [id number]
--- NOTE | 2022-04-30 16:01 | PN ---
Date of Progress Note: 04/30/2022 Mr. Del Rosario today is improved. Shortness of breath has improved. No chest pain. Blood pressure is 175 /74 with a pulse of 61. His last creatinine is 2.57. He remains on inhalers, steroids, antibiotics. Lasix has been held. He has chronic diastolic congestive heart failure that is stable. We will co marivel to follow him. No change in therapy for now. MARIANA/JHON Voice ID: [id number] Report ID: [id number]
[2022-04-30] MEDS ORDERED: PANTOPRAZOLE 40 MG INJ ONE (21:00)
[2022-05-01] MEDS: ALBUTEROL 2.5 MG/3 ML NEB SOL NEB SCH ×4 (00:30→20:25)
[2022-05-01] MEDS: IPRATROPIUM BROM 0.5MG/2.5ML NEB SCH ×4 (00:30→20:25)
--- NOTE | 2022-05-01 00:51 | CON ---
Date of Consultation: 04/30/2022 Chief Complaint: Acute kidney injury. History Of Present Illness: The patient has multiple medical problems. Nephrology consultation was requested today for acute kidney injury. There is high BUN and creatinine ratio. Over the last 48 h ours, BUN has increased from 79 to 125. Creatinine level on April 28 was 2.47, today is 2.57. A review of previous records showed that back in 2019, creatinine at baseline was ranging from 1.12 t o 1.21. The patient was found to have nonoliguric acute kidney injury on admission, creatinine level was 2.31 and steadily was going up to 2.66. Patient has severe prerenal azotemia and today he devel oped hypernatremia, sodium level was 147. Prior to that yesterday, sodium was 144. The patient has hypoalbuminemia. Albumin level was ranging from 2.4 to 2.5. Urinalysis was ordered and is pending. The patient was admitted to the hospital for shortness of breath, congestive heart failure and possi ble pneumonia. Cardiology consultation is requested. BNP was up to 7000. Chest x-ray showed possib le pneumonia. The patient was found to have elevated procalcitonin level and Infectious Disease cons ultant is following the patient as well as Cardiology was evaluating the patient. Patient has improv ed on inhalers, steroids, antibiotics, and Lasix. Renal function although has worsened over the last 48 hours and BUN is elevated. Of note, the patient was taking steroids, which may be contributory f actor to elevated blood urea nitrogen. Patient denies chest pain, nausea, vomiting, diaphoresis, pal pitations, or syncope. Denies dizziness. The patient states he has not had good p.o. intake over 48 hours. He has some difficulty to swallow foods and fluids and he is to have speech therapy gray luation. Past Medical History: Congestive heart failure, hypertension, chronic kidney disease stage 3, hyperl ipidemia, history of CHF exacerbation. Family History: No history of kidney disease in the family. Social History: The patient is a former smoker. Denies alcohol or illicit drugs. Review of Systems: General: Patient denies fever or chills. Eyes: Denies vision changes. Ears, Nose, Mouth and Throat: Denies sore throat or earache. Respiratory: He denies PND or orthopnea. Denies wheezing. GI: Denies nausea or vomiting. : Denies dysuria or hematuria. Neurological: Denies tremor or syncope. Physical Examination: Vital Signs: Blood pressure 111/74, heart rate 76, temperature 98.2. General: The patient is not in acute distress. He is oriented x3. Alert. Neck: Supple. No JVD. Respiratory: Crackles bilaterally, few rhonchi. Heart: S1 and S2. No pericardial friction rub. Abdomen: Not distended, benign. Extremities: No edema. No clubbing. No cyanosis. Laboratory Data: Urinalysis is pending. Sodium 147, potassium 4.0, chloride 111, CO2 26, BUN 125, c reatinine 2.57, glucose 163, albumin 2.5, serum protein 6.9, hemoglobin 11.4, WBC 9.4, platelet count 180,000. Chest x-ray is pending. Chest CT scan was done on April 27 without contrast. It showed moderate airspace opacities pres ent in both lungs posteriorly, most compatible with bibasilar pneumonia. CT scan of the abdomen and pelvis was done on April 30 without IV contrast. It showed bilateral renal cyst, small nodule o n the left adrenal gland, probably adenoma. Liver, spleen, pancreas and right adrenal gland grossly normal. Moderate bibasilar lung opacities. Bilateral renal cysts and small densities present in the gallbladder. The wall does not appear thickened, mild stranding, recent probably related to inflamm atory changes involving duodenum rather than primary gallbladder pathology. Cholelithiasis is suspec antoine. No hydronephrosis. Renal ultrasound showed right kidney 10 cm with increased echotexture, 2.3 cm cyst. The left kidney measures 11 cm and increased echotexture, 4.8 cm cyst, hydronephrosis is no t seen. Increased renal echotexture consistent with parenchymal disease and renal cyst. Impression And Plan: Acute on chronic kidney injury. High BUN and creatinine ratio. Patient will s tart IV fluids with gentle hydration. Recommend drug diuretics. Patient is on antibiotics. He was found to have Gram-positive bacteremia with Streptococcus agalactiae and currently treated with Unasy n. He has history of hypertension. He came to the hospital with shortness of breath and congestive heart failure. Chest x-ray showed moderate congestive heart failure. CT scan showed moderate airspa ce opacities in both lungs consistent with pneumonia and the patient was treated with steroids and La six. He has acute on chronic kidney injury. Baseline creatinine about 2 years ago was ranging from 1.1 to 1.2. Patient is undergoing workup for GI pathology. He has a CT scan consistent with perfora antoine duodenal ulcer versus mass. He came with pancytopenia, sepsis, and pulmonary infiltrates, conges tive heart failure. Acute kidney injury has not improved and there is high azotemia. Patient may ne ed to start dialysis if he does not respond to mild hydration. The patient has malnutrition. I recommend to screen for monoclonal gammopathy of unknown significanc e. Patient has hypoalbuminemia. Urinalysis obtained to check for any evidence of acute active urina ry sediment. Recommend to continue antibiotics, adjust antibiotic dose to renal function. EB/MODL Voice ID: [id number] Report ID: [id number]
[2022-05-01] MEDS: Ringers Lactate 1,000 ML IV SCH (05:38)
[2022-05-01 06:16] LABS: Absolute Lymphocytes (CBC) 0.4 K/uL (0.7-4.9); Hematocrit 34.7 % (39.6-49.0); RBC Red Blood Cell Count 4.08 M/uL (4.33-5.43)
[2022-05-01 06:24] LABS: Magnesium 3.5 mg/dL (1.8-2.4)
--- NOTE | 2022-05-01 08:27 | ECHO ---
HEIGHT: 5 ft 10 in WEIGHT: 210 lb 0 oz DATE OF STUDY: 04/27/[address]: Naldo Mcgee MD 2-DIMENSIONAL: YES M.MODE: YES DOPPLER: YES COLOR FLOW: YES TDS: YES PORTABLE: YES DEFINITY: BUBBLE STUDY: DIAGNOSIS: CONGESTIVE HEART FAILURE CARDIAC HISTORY: CATHERIZATION: SURGERY: PROSTHETIC VALVE: PACEMAKER: MEASUREMENTS (cm) DIASTOLIC (NORMALS) SYSTOLIC (NORMALS) IVSd 1.4 (0.6-1.2) LA Diam 3.7 (1.9-4.0) LVEF 51-55% LVIDd 4.5 (3.5-5.7) LVIDs 3.6 (2.0-3.5) %FS % LVPWd 1.5 (0.6-1.2) Ao Diam 4.2 (2.0-3.7) 2 DIMENSIONAL ASSESSMENT: RIGHT ATRIUM: NORMAL LEFT ATRIUM: NORMAL RIGHT VENTRICLE: NORMAL LEFT VENTRICLE: LEFT VENTRICULAR HYPERTROPHY TRICUSPID VALVE: NORMAL MITRAL VALVE: NORMAL PULMONIC VALVE: NORMAL AORTIC VALVE: SCLEROSIS PERICARDIAL EFFUSION: NONE AORTIC ROOT: NORMAL LEFT VENTRICULAR WALL MOTION: NORMAL EJECTION FRACTION. DECREASED LEFT VENTRICULAR COMPLIANCE. DOPPLER/COLOR FLOW: MILD AORTIC REGURGITATION, TRICUSPID REGURGITATION. COMMENTS: MILD AORTIC REGURGITATION, TRICUSPID REGURGITATION. LEFT VENTRICULAR HYPERTROPHY. AORTIC SCLEROSIS. DIASTOLIC DYSFUNCTION. TECHNOLOGIST: ANTONIO KELLER
[2022-05-01 09:04] LABS: Anisocytosis SLIGHT; Blood Morphology Comment NOTED (NOT SEEN); Hypochromasia 1+; Platelet Estimate ADEQ
[2022-05-01] MEDS: AMPICILLIN/SULBACT 3 GM in NA CHLORIDE 0.9% 100 ML IVPB SCH ×2 (09:21→22:05)
--- NOTE | 2022-05-01 10:02 | RAD REPORT ---
EXAM DESCRIPTION: CT - Abdomen Wo Contrast - 05/01/2022 9:01 am CLINICAL HISTORY: f/u suspected duodenal perforation Abdominal pain COMPARISON: Abdomen Pelvis Wo Contrast dated 04/30/2022 TECHNIQUE: Axial [address] imaging of the abdomen was performed. No IV contrast was adm inistered. No oral contrast administered. All CT scans are performed using dose optimization technique as appropriate and may include automated exposure control or mA/KV adjustment according to patient size. FINDINGS: Lung findings are detailed in separate CT chest report. The liver, spleen, and pancreas show no suspicious findings for non IV contrast imaging. Pancreatic a trophy is again noted. Multiple small gallstones are present. No acute gallbladder or biliary tree fi nding. No hydronephrosis or suspicious renal mass. Isodense masses and pyelonephritis are not excluded on a non IV contrast study. Renal cysts are unchanged from the short interval April 30 study.No adrenal abnormality. The extraluminal air and stranding adjacent to the duodenal C-loop has shown no progression over this 1 day interval. No distant free air or abnormal fluid collection. No mass or bulky lymphadenopathy. Bony degenerative change again noted. Exam sensitivity is decreased when no IV contrast is administered. IMPRESSION: Extraluminal air and soft tissue stranding adjacent to the duodenal C-loop has not osuna ed since prior day imaging. No new or suspicious finding.
--- NOTE | 2022-05-01 10:05 | RAD REPORT ---
EXAM DESCRIPTION: CT - Thorax Wo Con - 05/01/2022 9:01 am CLINICAL HISTORY: f/u suspected duodenal perforation COMPARISON: Thorax Wo Con dated 04/27/2022 TECHNIQUE: Axial 5 mm thick images of the chest were obtained without IV contrast. All CT scans are performed using dose optimization technique as appropriate and may include automated exposure control or mA/KV adjustment according to patient size. FINDINGS: Airspace opacification is seen throughout the majority of the each lower lobe with areas o f dense consolidation. Air bronchogram formation is seen. Very minimal airspace opacification seen in the posterior lingula and in the right middle lobe. Lung parenchymal findings are similar to the Sep examination. This is a pattern typical for infectious or aspiration pneumonia. No endobronch ial lesion. No cavitation. No pleural thickening or pleural effusion. No pneumothorax. Small nonspecific mediastinal and hilar lymph nodes are present. No pathologic lymphadenopathy. No gr oss aortic or pulmonary artery finding suspected. No cardiomegaly or pericardial effusion. No chest wall mass or abnormal axillary lymphadenopathy. Bilateral gynecomastia noted. IMPRESSION: Significant bilateral lower lobe infection or aspiration pneumonia. Pattern is similar t o April 27 imaging.
[2022-05-01] MEDS: D5 0.45 NS 1,000 ML IV SCH (11:33)
--- NOTE | 2022-05-01 12:58 | PN ---
Subjective: The patient was admitted with acute kidney injury secondary to prerenal, poor intake, questionable of cardiorenal component. The patient was initiated on IV hydration yesterday. With combination of diuresis, the patient is still complaining from shortness of breath. Physical Examination: Vital Signs: When I saw the patient; blood pressure 181/71, pulse of 123, afebrile. Chest: Crackles bilateral. Heart: S1, S2. Regular. Abdomen: Soft, nontender. Extremity: Trace edema. Neurologic: Alert. No focality. Laboratory Data: WBC 10.7, H and H 11.6/34.7. Sodium 154, potassium 4, bicarb 29, BUN 117, creatinine 1.9, calcium 9, magnesium 3.5. Albumin 2.5, corrected calcium is 10.2. Current Medications: The patient on include ampicillin-sulbactam, LR at 50 per hour, pantoprazole. Assessment And Plan: 1. Acute kidney injury, questionable of prerenal secondary to dehydration secondary to poor intake. The patient had history of congestive heart failure, possible diastolic dysfunction. Ejection fraction has been preserved. The patient still has shortness of breath, but maintained on good oxygenation with nasal cannula. I am going to go ahead and agree with holding the diuresis. The patient had severe disproportion in the BUN and creatinine with possibly secondary to prerenal. Also reviewing his lab data, his hemoglobin has significantly carlo from 9.9 to 11.6 on this admission over the last few days, which supports possible dehydration. Again, I am going to hold the diuresis. I agree with IV fluid. We will change the IV fluid to D5 half given the presence of the hypernatremia and we will follow up. 2. Severe disproportion in BUN and creatinine, multifactorial, possible secondary to catabolic state/prerenal secondary to dehydration. I am going to start hydration as above. We will hold the diuresis. 3. Hyponatremia, possible depletional. Change IV fluids. Hold diuresis. We will monitor. 4. Respiratory distress, possible secondary to combined congestive heart failure/pneumonia, superimposed with chronic obstructive pulmonary disease. The patient was initiated on antibiotic and breathing treatment. We will follow up. time spend exam the patient face to face . reviewing the data lab and radiology , placing order , discussing the case with the patient and staff including nurse and hospitalist 35 min LUCY Voice ID: [id number] Report ID: [id number] [facility] HOSPITALJimmy
--- NOTE | 2022-05-01 13:37 | RAD REPORT ---
EXAM DESCRIPTION: RAD - Chest Single View - 05/01/2022 1:13 pm CLINICAL HISTORY: COPD COMPARISON: Chest Single View dated 04/27/2022; Chest Single View dated 03/02/2020; Chest Single View da antoine 06/12/2019; Thorax Wo Con dated 05/01/2022; Thorax Wo Con dated 04/27/2022 FINDINGS: Lines: None. Lungs: Nodular airspace disease is present in the lung bases bilaterally. Pleural: No significant pleural effusions or pneumothorax. Cardiac: The heart size is within normal limits. Mediastinum: Within normal limits. Bones: No acute fractures. Other: None IMPRESSION: Nodular airspace disease in the lung bases consistent with pneumonia.
[2022-05-01 13:45] LABS: UR PROTEIN 40.3 mg/dL (<11.9); Urine Protein/Creatinine Ratio 0.92 ratio (<0.15)
--- NOTE | 2022-05-01 14:39 | EKG ---
Test Date: 2022-04-27 Test Time: 11:55:46 Test Evaluator: EKTA MEASUREMENT RESULTS: Intervals: Rate: 71 CA: 178 QRSD: 100 QT: 488 QTc: 530 [place]: P: 76 CA: 178 QRS: 47 T: 102 INTERPRETIVE STATEMENTS: Sinus rhythm with premature atrial complexes ST & T wave abnormality, consider lateral ischemia Prolonged QT Abnormal ECG Compared to ECG 03/02/2020 16:20:21 Atrial premature complex(es) now present ST (T wave) deviation now present Possible ischemia now present Prolonged QT interval now present Left ventricular hypertrophy no longer present Early repolarization no longer present Electronically Signed On 05-01-22 14:33:23 CDT by Rey Manzano
[2022-05-01] MEDS: PANTOPRAZOLE INJ 80 MG in NA CHLORIDE 0.9% 250 ML IV SCH (15:06)
--- NOTE | 2022-05-01 15:16 | PN ---
Subjective: The patient is sitting in bed. Complains of abdominal discomfort. Otherwise, no other complaints. Also has some shortness of breath . Objective: Vital Signs: Temperature 97, pulse 123, respirations 16, blood pressure 181/71, currentl y on 2 L nasal cannula. Sats are 94%. Lungs: Basal crackles. Heart: S1, S2. Regular. Abdomen: Tenderness noted in the right upper and lower quadrant. Extremities: No edema. Laboratory Data: WBC 10.7, hemoglobin 11.6, platelets are 172. Assessment And Plan: 1.Perforated duodenal ulcer, currently on n.p.o. Recommend to start the patient on TPN and PICC yvonne e placement. The patient will require at least 14 to 21 days of antibiotic. Consider long-term acut e care if the patient's surgeries postponed. We will follow the patient closely. 2.Bacteremia secondary to Streptococcus agalactiae. No other recommendation at this time. We will follow the patient closely. Monitor signs of infections with WBC and fever trends. NF/MODL Voice ID: [id number] Report ID: [id number]
--- NOTE | 2022-05-01 15:22 | P.PN ---
Subjective Date of Service: 05/01/22 Chief Complaint: CHF Exacerbation Subjective: No new changes, Improving Physical Examination - Vital Signs Temperature: 96.8 F Blood Pressure: 173/56 Pulse: 90 Respirations: 20 Pulse Ox (%): 96 - Physical Exam General: Alert, Oriented x3 HEENT: Atraumatic, Normocephalic Neck: Supple Respiratory: Normal air movement Cardiovascular: Regular rate/rhythm, Normal S1 S2 Gastrointestinal: Soft and benign Musculoskeletal: No swelling Neurological: Normal speech Assessment And Plan - Plan # Acute Hypoxemic Respiratory Failure - likely secondary to Community-Acquired Pneumonia and Congestive Heart Failure -Clinical state concerning for pneumonia. -Antibiotics to be continued. -Pulm following. - PRN benzonatate - Encouraged incentive spirometry # Sepsis likely secondary to Community-Acquired Pneumonia with Group B Streptococcus Agalactiae Bacteremia - Sepsis order set was initiated - Blood cultures drawn before antibiotics were given - / positive for Streptococcus Agalactiae Group B - Broad spectrum antibiotics started: Ceftriaxone + Doxycycline - switched to Vancomycin + Piperacillin-Tazobactam - Transitioned to ampicillin-sulbactam (renally dosed) # 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 He did developed suspected duodenal perforation and antihypertensive medication with diuretic dose has been held. We will follow symptoms closely. # KDIGO Stage II Acute Kidney Injury - suspect Cardiorenal Syndrome - Creatinine is better at 1.9 today. Nephrology following for management recs for hypernatremia and kidney function. # Nutrition Status - Pending swallow study. Will keep n.p.o. for now in view of development of suspected duodenal perforation. #Suspected duodenal perforation. General surgery has been consulted for management recommendation based on CT abdomen/pelvis finding of suspected duodenal perforation. Patient remains clinically stable with mild pain in the right lower quadrant. No progressive abdominal distention noted. No bleeding per rectum or vomiting of blood reported. IV pantoprazole dose has been started per surgeon recommendations. General surgeon following for management recs. Will follow his symptoms and intervene if needed.
[2022-05-01 15:46] LABS: Specific Gravity 1.018 (1.005-1.030); Urine Bilirubin NEGATIVE (Negative); Urine Blood Negative (Negative); Urine Clarity Clear (Clear); Urine Color Light-Yellow (Yellow); Urine Glucose NEGATIVE (Negative); Urine Protein 1+ (Negative); Urine Urobilinogen Normal (Normal)
[2022-05-01 15:47] LABS: Urine Mucus Slight /HPF (None Seen); Urine RBC <5 /HPF (None Seen)
--- NOTE | 2022-05-01 16:16 | PN ---
Date of Progress Note: 05/01/2022 Reason For Service: Possible duodenal perforation versus tumor. Subjective: This is the case of an 86-year-old patient, admitted to the hospital for multiple medica l problems. He has been here for several days. On the CAT scan that was done, it was found to have a small pinpoint area of hair air next to the duodenum and etiology of that is unknown. The patient right now is symptomatic with no abdominal pain, but raised the question also of a contained perforat ion of duodenum. Today, he feels better. We had a CAT scan repeated today that shows no changes. Objective: Chest: Clear. Abdomen: Soft and depressible. No guarding or rebound or peritoneal signs. Epigastric area with no tenderness. Laboratory Data: Blood work reviewed. Plan: It is difficult at this moment to understand if this is old finding or new finding, so we have to treat as a new finding. He preferred not to go to surgical intervention. I do understand and he preferred to do conservative treatment. In that case, we have to assume this could be a perforation , we are going to hold the intake by mouth for at least for 72 hours. We are going then do the upper GI studies to see if there is any leak and if we see there is no leak, then we might proceed with di et. He preferred that route better. As long as clinically he improves than what he is doing then we will proceed accordingly. With the difficulty of not being able to use the GI tract, we might have to think about some other ways how to give him nutrition and maybe even parenteral. MARISELA/VAUGHNL Voice ID: [id number] Report ID: [id number]
[2022-05-02] MEDS: ALBUTEROL 2.5 MG/3 ML NEB SOL NEB SCH ×2 (01:15→09:18)
[2022-05-02] MEDS: IPRATROPIUM BROM 0.5MG/2.5ML NEB SCH ×2 (01:15→09:18)
[2022-05-02] MEDS: PANTOPRAZOLE INJ 80 MG in NA CHLORIDE 0.9% 250 ML IV SCH ×2 (03:11→11:39)
[2022-05-02] MEDS: D5 0.45 NS 1,000 ML IV SCH (03:11)
[2022-05-02 03:43] LABS: Albumin 2.2 g/dL (3.4-5.0); Phosphorus 2.8 mg/dL (2.5-4.9); Potassium 3.7 mmol/L (3.5-5.1)
[2022-05-02] MEDS: D5W 1,000 ML IV SCH ×2 (04:17→16:31)
[2022-05-02 04:56] VITALS: BMI 28.8
[2022-05-02] MEDS ORDERED: METOPROLOL TARTRATE 5 MG/5 ML INJ IV STA ×2 (05:10→23:10)
--- NOTE | 2022-05-02 08:04 | PN ---
The patient was admitted with shortness of breath, possible pneumonia, and possible congestive heart failure. He has a history of hypertension, congestive heart failure, leaky valve in the past. He lemons s known diastolic congestive heart failure. Labs and vital signs were stable. Last creatinine is 1. 95. His white count has improved. He is still hypernatremic with a sodium of 154, chloride of 118. Last creatinine is down to 1.95. His present regimen includes dextrose fluid. Lasix has been held. He is on inhalers. He is on antibiotics, Protonix. I would continue present regimen. Do not thin k Mr. Del Rosario has congestive heart failure at present. We will sign off his case. MARIANA/JHON Voice ID: [id number] Report ID: [id number]
[2022-05-02] MEDS: AMPICILLIN/SULBACT 3 GM in NA CHLORIDE 0.9% 100 ML IVPB SCH ×2 (08:06→21:00)
--- NOTE | 2022-05-02 09:25 | RAD REPORT ---
EXAM DESCRIPTION: RAD - Abdomen W Erect - 05/02/2022 9:08 am CLINICAL HISTORY: f/u duodenal pathologgy COMPARISON: Abdomen Wo Contrast dated 05/01/2022; Abdomen Pelvis Wo Contrast dated 04/30/2022; Thorax Wo Con dated 05/01/2022 FINDINGS: Nonobstructive bowel gas pattern. No acute osseous abnormality.Nodular airspace disease ag ain noted in the lung bases. [place] of free air adjacent to the duodenum is unchanged.No abnormal c alcifications. IMPRESSION: Nonobstructive bowel gas pattern. [place] of free air lateral to the duodenum is grossl y similar.
[2022-05-02] MEDS ORDERED: DEXTROSE 10%-WATER 500 ML IV SCH ×2 (11:00)
--- NOTE | 2022-05-02 12:46 | EKG ---
Test Date: 2022-05-02 Test Time: 04:58:46 Medical Laboratory Technicians: RT MEASUREMENT RESULTS: Intervals: Rate: 131 MA: QRSD: 106 QT: 282 QTc: 416 [place]: P: MA: QRS: 33 T: 194 INTERPRETIVE STATEMENTS: Atrial fibrillation with rapid ventricular response ST & T wave abnormality, consider inferolateral ischemia or digitalis effect Abnormal ECG Compared to ECG 05/02/2022 04:57:52 ST (T wave) deviation still present Possible ischemia still present Electronically Signed On 05-02-22 12:46:11 CDT by Rey Manzano
--- NOTE | 2022-05-02 12:47 | EKG ---
Test Date: 2022-05-02 Test Time: 04:57:52 [place] In: RT MEASUREMENT RESULTS: Intervals: Rate: 131 [place]: QRSD: 90 QT: 344 QTc: 507 [place]: P: SC: QRS: 33 T: 184 INTERPRETIVE STATEMENTS: Atrial fibrillation with rapid ventricular response ST & T wave abnormality, consider inferolateral ischemia or digitalis effect Abnormal ECG Compared to ECG 04/27/2022 11:55:46 Sinus rhythm no longer present Atrial premature complex(es) no longer present Prolonged QT interval no longer present ST (T wave) deviation still present Possible ischemia still present Electronically Signed On 05-02-22 12:46:20 CDT by Rey Manzano
--- NOTE | 2022-05-02 13:16 | PN ---
Date of Progress Note: 05/02/2022 Subjective: The patient was admitted with acute kidney injury, respiratory failure. The patient had a questionable duodenitis. Poor intake. Acute kidney injury, it was secondary to prerenal, dehydra tion. The patient's diuresis has been stopped and started on IV hydration. Kidney function continue d to improve. Physical Examination: General: When I saw the patient; the patient more awake. Vital Signs: Blood pressure 133/67, pulse 127, afebrile. Chest: Clear to auscultation. Heart: S1, S2. Tachy. Systolic murmur. Abdomen: Mild tenderness on the epigastric area. No guarding or rebound. Extremities: No edema. Neurologic: Alert. No focality. Laboratory Data: WBC 10.7, H and H 11.6/34.7, platelet 172. Sodium 160, potassium 3.7, bicarb 30, B UN 96, creatinine down to 1.5, GFR of 44, calcium of 8.8, phosphorus 2.8, albumin 2.2, corrected calc ium is 10.4. Current Medications: The patient on include; 1.Zosyn. 2.Albuterol. 3.Pantoprazole. Assessment And Plan: 1.Acute kidney injury secondary to prerenal, on the recovery phase, looked to me the patient is stil l on the dry side. I am going to continue hydration. With the presence of the hypernatremia, I will change the IV fluid to D5 and we will monitor. The patient suspected to be n.p.o. for the next few days and has been n.p.o. for the last couple of days. We will discuss with primary regarding placing the patient on PPN, and we will follow up. 2.Hypertension, controlled, optimal. Continue current medication. 3.Over volume, resolved. 4.Hypernatremia secondary to dehydration. We will change IV fluid to D5 and if agreement happened o n PPN, we will consider non-electrolyte PPN. 5.Hypokalemia. We will supplement. 6.Contraction alkalosis secondary to poor intake and diuresis before. I am going to continue IV flu id and we will follow up. 7.Respiratory failure, mostly secondary to chronic obstructive pulmonary disease/pneumonia. I do no t see any component currently for over volume. Keep holding diuresis. Continue current antibiotic. 8.Duodenitis as by Surgery and Primary. Continue current antibiotic dose appropriate. 9.Marginal hypercalcemia secondary to dehydration. Continue IV fluid. ULYSSES/JHON Voice ID: [id number] Report ID: [id number]
[2022-05-02] MEDS ORDERED: IPRATROPIUM BROM 0.5MG/2.5ML NEB PRN (13:51)
[2022-05-02] MEDS ORDERED: ALBUTEROL 2.5 MG/3 ML NEB SOL NEB PRN (13:51)
[2022-05-02 14:00] LABS: Potassium 3.5 mmol/L (3.5-5.1)
--- NOTE | 2022-05-02 16:07 | PN ---
Date of Progress Note: 05/02/2022 Subjective: Seen by bedside. He is lying comfortably in the bed, mild shortness of breath requiring oxygen. He is in atrial fibrillation. Rate is borderline. Denies having any chest pain, nausea, v omiting, diarrhea. No dysuria, polyuria, or urinary urgency. All other systems were reviewed and th ey were negative. Physical Examination: Vital Signs: Temperature is 97.0, heart rate 135, breathing at 18, blood pressure 131/94, saturating 94%. General: Pleasant elderly male, in no apparent distress. Head and Neck: Pupils are equal, reactive to light. Intact eye movements. No JVD. No cervical lym phadenopathy. Neck is supple. Thyroid is not enlarged. Lungs: He has rhonchi bilaterally with slight increased respiratory effort. Heart: Irregularly irregular. Tachycardiac. Abdomen: Soft, nontender. Bowel sounds positive. No organomegaly. No masses or hernia. No rigidi ty or rebound. Extremities: No clubbing or cyanosis. Intact pulses. Skin: No rash. Neurologic: Alert, awake. No acute focal deficits appreciated. Lymph Nodes: No cervical or axillary lymphadenopathy. Investigations: His sodium is 160, chloride is 125, BUN 96, creatinine 1.54, hemoglobin is 11. Assessment And Recommendations: 1.Atrial fibrillation with rapid ventricular response. Recommend amiodarone IV drip, start with a b olus of 150 mg over 10 minutes, then 1 mg/minute for 6 hours, then 0.5 mg/minute for 16 hours and als o if blood pressure allows to start on metoprolol 12.5 mg twice a day by mouth for better rate contro l. This patient's CHADS-VASc score is elevated; however, he is not a candidate for anticoagulant at the present time. 2.Severe dehydration with hypernatremia and high chloride. This will respond well to hypovolemic fluids like D5W and continue to monitor. SR/MODL Voice ID: [id number] Report ID: [id number]
[2022-05-02] MEDS ORDERED: AMINO ACIDS 5 %/DEXTROSE 20 % 2,000 ML, Lipids 20% 250 ML with MULTIVITAMINS INJ 10 ML IV SCH ×3 (17:00)
[2022-05-02] MEDS: AMINO ACIDS 4.25 %/DEXTROSE 5% 2,000 ML, Lipids 20% 250 ML with MULTIVITAMINS INJ 10 ML IV SCH ×3 (17:06)
[2022-05-02] MEDS: PANTOPRAZOLE 40 MG INJ IVP SCH (20:15)
--- NOTE | 2022-05-02 20:49 | PN ---
Subjective: Patient is sitting in bed, not in any acute distress. Continues to have some vague abdo dipika discomfort. Objective: Vital Signs: Temperature 97, pulse 120, blood pressure 131/94, respirations 18. Lungs: Basal crackles. Heart: S1, S2. Regular. Abdomen: Soft, nontender. Bowel sounds present. Extremities: Trace edema. Laboratory Data: Sodium 159, potassium 3.5, chloride 123, bicarb 31, BUN 79, creatinine 1.5. No CBC available today. Assessment And Plan: Perforated duodenal ulcer. Continue IV antibiotic, Unasyn. Continue supportiv e care. Monitor for signs of infection, WBC and fever trend. Continue supportive care. NF/MODL Voice ID: [id number] Report ID: [id number]
[2022-05-03 05:50] LABS: Phosphorus 2.3 mg/dL (2.5-4.9); Potassium 3.6 mmol/L (3.5-5.1)
[2022-05-03] MEDS: AMPICILLIN/SULBACT 3 GM in NA CHLORIDE 0.9% 100 ML IVPB SCH ×2 (09:11→20:51)
[2022-05-03] MEDS: PANTOPRAZOLE 40 MG INJ IVP SCH ×2 (09:11→20:51)
[2022-05-03] MEDS ORDERED: METOPROLOL TARTRATE 5 MG/5 ML INJ IV STA ×3 (10:08→16:16)
[2022-05-03] MEDS: D5W 1,000 ML IV SCH ×2 (11:00→21:00)
--- NOTE | 2022-05-03 13:48 | PN ---
Subjective: The patient was admitted with acute kidney injury secondary to prerenal. The patient wa s started on aggressive hydration. The patient developed severe hypernatremia. Diuresis was stopped . The patient was started on aggressive hydration. The patient receiving almost 2.5 L daily. The p atient complaining currently with shortness of breath. Physical Examination: Vital Signs: Blood pressure 170/66, pulse of 110. Chest: Clear to auscultation. Heart: S1, S2. Regular. Abdomen: Soft, nontender. Extremity: No edema. Neuro: Alert. No focality. Laboratory Data: WBC 10.7, H and H 11.6/34.7. Sodium 159, potassium 3.6, bicarb 29, BUN 67, creatin ine 1.2, GFR of 56, calcium 8.4, phosphorus 2.3, albumin of 2, corrected calcium is 10. Current Medications: The patient on include; 1.TPN. 2.Pantoprazole. 3.Benzonatate. Assessment And Plan: 1.Acute kidney injury secondary to prerenal, dehydration. The patient continued to recover, looked to me slightly on the wet side, but the patient had severe hypernatremia. I am going to give the pat ient a single dose of Lasix. We will get chest x-ray for better evaluation of the fluid status and w e will follow up. 2.Hypernatremia, water deficit of 7.4 L plus insensible loss, which is almost another 0.5 L, total d eficit of 8 L plus the output. I am going to go ahead and increase the volume of the TPN. We will r esume D5 and we will continue to monitor the patient. 3.Hypokalemia. I will supplement. 4.Hypophosphatemia. We will supplement. 5.Hypercalcemia secondary to poor intake, dehydration, resolved. 6.Contraction alkalosis. Chloride started trending down. We will follow up. 7.Possible duodenitis as by Surgery. 8.Respiratory failure secondary to chronic obstructive pulmonary disease, questionable of volume sta tus. We will give Lasix. We will get chest x-ray for better evaluation, follow up with the primary. ULYSSES/JHON Voice ID: [id number] Report ID: [id number]
[2022-05-03] MEDS: METOPROLOL TARTRATE 5 MG/5 ML INJ IV SCH ×2 (14:54→18:42)
[2022-05-03] MEDS ORDERED: DEXTROSE 20% IV SCH (17:00)
[2022-05-03] MEDS ORDERED: AMINO ACIDS IV SCH (17:00)
[2022-05-03] MEDS ORDERED: AMINO ACIDS 4.25 %/DEXTROSE 5% 2,000 ML IV SCH (17:00)
--- NOTE | 2022-05-03 20:48 | PN ---
Subjective: Patient lying in bed. Feels slightly better today. Currently on TPN and IV antibiotic, Unasyn. Denies any other problems. Objective: Vital Signs: Temperature 97, pulse 120, respirations 18, blood pressure 184/64, currentl y on 2 L nasal cannula. Lungs: Basal crackles. Heart: S1, S2. Regular. Abdomen: Soft. Bowel sounds present. Extremities: 1+ edema. Laboratory Data: Shows no new labs available today. Assessment And Plan: No new labs available today. Sodium 159, potassium 3.6, chloride 124, bicarb 2 9, BUN 67, creatinine 1.26, glucose 135. Assessment And Plan: 86-year-old male with bacteremia secondary to Streptococcus agalactiae group B status post perforated duodenal ulcer, currently on TPN and Unasyn. As surgery is not performed, we will recommend to continue antibiotic for 2-3 weeks. Consider transferring patient to long-term [facility] care. Continue nutritional support and antibiotic. We will follow the patient closely. NF/MODL Voice ID: [id number] Report ID: [id number]
--- NOTE | 2022-05-03 21:49 | PN ---
Date of Progress Note: 05/03/2022 Subjective: Seen by bedside. He is stable, requiring oxygen. Still with mild shortness of breath. He is lying flat in bed. Review of Systems: Not obtainable. The patient is very poor historian. Objective: Vital Signs: Temperature is 97.1, heart rate 118, breathing at 18, blood pressure 184/64 , and saturating 96%. General: Pleasant elderly male, in no apparent distress. Head and Neck: Pupils are equal and reactive to light. Intact eye movements. No JVD. No cervical lymphadenopathy. Neck: Supple. Thyroid is not enlarged. Lungs: Clear to auscultation bilaterally. No rhonchi, rales, or crackles. No accessory muscle use. Heart: Irregularly irregular, tachycardic. Abdomen: Soft and nontender. Bowel sounds positive. No organomegaly. No masses or hernia. No rig idity or rebound. Extremities: No clubbing or cyanosis. Intact pulses. Skin: No rash. Neurologic: Alert, awake. No acute focal deficits appreciated and he is confused. Investigations: Sodium 159, potassium 3.6, chloride is 124, BUN is 67, and creatinine 1.26. Assessment And Recommendation: 1.Severe dehydration, improving with IV fluids. Continue current management. 2.Severe hypernatremia. Recommend D5W fluids and monitor sodium and chloride. 3.Acute renal failure that is resolved with fluid management. 4.Atrial fibrillation. Rate is still controlled. The patient cannot take medications by mouth and using Lopressor as needed and also recommend amiodarone drip, I do not see it active. If the patient can get the amiodarone drip and be kept on 0.5 mg/minute, this will probably control his heart rate for now until he is able to take medications by mouth where a beta bl ocker will be introduced. SR/MODL Voice ID: [id number] Report ID: [id number]
[2022-05-04] MEDS: METOPROLOL TARTRATE 5 MG/5 ML INJ IV SCH ×4 (01:54→16:56)
[2022-05-04 05:59] LABS: Absolute Lymphocytes (CBC) 0.9 K/uL (0.7-4.9); Hematocrit 35.8 % (39.6-49.0); Lymphocytes % 7.3 % (15.3-44.8); MCV 85.7 fL (80-100); MPV 8.7 fL (7.6-11.3); RBC Red Blood Cell Count 4.18 M/uL (4.33-5.43)
[2022-05-04 06:19] LABS: Albumin 2.1 g/dL (3.4-5.0); Magnesium 2.9 mg/dL (1.8-2.4); Phosphorus 2.3 mg/dL (2.5-4.9); Potassium 3.4 mmol/L (3.5-5.1); Protein, Total 5.9 g/dL (6.4-8.2)
[2022-05-04] MEDS: D5W 1,000 ML IV SCH ×3 (06:32→18:27)
--- NOTE | 2022-05-04 08:18 | RAD REPORT ---
EXAM DESCRIPTION: RAD - Chest Single View - 05/04/2022 5:35 am CLINICAL HISTORY: pneumonia Chest pain. COMPARISON: Chest Single View dated 05/01/2022; Chest Single View dated 04/27/2022; Chest Single View da antoine 03/02/2020; Chest Single View dated 06/12/2019 FINDINGS: Portable technique limits examination quality. Ozaw-ry-mtmoazfh patchy opacities in both lung bases show little overall change since comparative marlyn dy and likely represent pneumonia or aspiration. The heart is mildly enlarged. No displaced fractures . IMPRESSION: Stable chest.
[2022-05-04] MEDS: PANTOPRAZOLE 40 MG INJ IVP SCH ×2 (09:12→21:48)
[2022-05-04] MEDS: AMPICILLIN/SULBACT 3 GM in NA CHLORIDE 0.9% 100 ML IVPB SCH ×3 (09:12→21:47)
[2022-05-04] MEDS ORDERED: AMIODARONE HCL 900 MG in Dextrose 5%-Water 482 ML IV SCH ×2 (09:30→15:32)
--- NOTE | 2022-05-04 13:55 | EKG ---
Test Date: 2022-05-04 Test Time: 11:11:23 Steam Press Tender: DADA MEASUREMENT RESULTS: Intervals: Rate: 112 W[place]: QRSD: 98 QT: 292 QTc: 398 [place]: P: WV: QRS: 17 T: 162 INTERPRETIVE STATEMENTS: Atrial fibrillation with rapid ventricular response ST & T wave abnormality, consider inferolateral ischemia or digitalis effect Abnormal ECG Compared to ECG 05/02/2022 04:58:46 No significant changes Electronically Signed On 05-04-22 13:54:43 CDT by Rey Manzano
--- NOTE | 2022-05-04 14:00 | P.PN ---
Subjective Date of Service: 05/02/22 Subjective: No new changes, No C/O voiced, Improving Review of Systems 10-point ROS is otherwise unremarkable Physical Examination - Vital Signs Temperature: 96.7 F Blood Pressure: 170/72 Pulse: 106 Respirations: 20 Pulse Ox (%): 97 - Physical Exam General: Alert, In no apparent distress, Oriented x2, Disheveled Respiratory: Diminished, Crackles/rales Cardiovascular: Regular rate/rhythm, Normal S1 S2, Systolic murmur Gastrointestinal: Normal bowel sounds, Soft and benign, Non-distended, No tenderness Musculoskeletal: No clubbing, No swelling, No tenderness Neurological: Normal speech, Sensation intact, Cranial nerves 3-12 intact, Other (GENERALIZED WEAKNESS) Lymphatics: No axilla or inguinal lymphadenopathy - Studies Medications List Reviewed: Yes Assessment & Plan - Problems (Diagnosis) (1) Duodenal perforation Current Visit: Yes Status: Acute (2) Atrial fibrillation Current Visit: Yes Status: Acute (3) Acute on chronic renal failure Current Visit: Yes Status: Acute Qualifiers: Chronic kidney disease stage: stage 4 (severe) (4) Streptococcus agalactiae infection Current Visit: Yes Status: Acute (5) Hypernatremia Current Visit: Yes Status: Acute (6) Prerenal azotemia Current Visit: Yes Status: Acute (7) Diastolic heart failure Current Visit: Yes Status: Acute - Plan PLAN: 1. CONTINUE WITH BETA-CLINTON THERAPY 2. DIURETICS 3. MONITOR RENAL FUNCTION 4. MONITOR SODIUM LEVEL 5. NPO 6. REPEAT ABDOMINAL FILMS 7. GI DVT PROPHYLAXIS Discharge Plan: Alf Plan to discharge in: Greater than 2 days - Advance Directives Does patient have a Living Will: No Does patient have a Durable POA for Healthcare: No - Code Status/Comfort Care Code Status Assessed: Yes Code Status: Full Code Critical Care: No Time Spent Managing PTS Care (In Minutes): 35
--- NOTE | 2022-05-04 14:09 | RAD REPORT ---
EXAM DESCRIPTION: RAD - Upper GI Series Wo KUB - 05/04/2022 2:01 pm CLINICAL HISTORY: duodenum perf Abdominal pain COMPARISON: Abdomen Pelvis Wo Contrast dated 04/30/2022 FINDINGS: The patient was given contrast material by straw. Immediately, the patient appeared to hav e aspirated with significant coughing and breathing difficulty. The examination was therefore termina antoine and is incomplete/nondiagnostic. This was discussed with Dr. Gerber at the time of dictation. Total fluoroscopy time: 24 seconds Number of images acquired: 6
--- NOTE | 2022-05-04 14:59 | P.PN ---
Subjective Date of Service: 05/04/22 Chief Complaint: CHF Exacerbation Subjective: No new changes, Other (Remains bed bound) Physical Examination - Vital Signs Temperature: 96.7 F Blood Pressure: 170/72 Pulse: 106 Respirations: 20 Pulse Ox (%): 97 - Physical Exam General: Other (Chronically ill appearing) HEENT: Atraumatic, Normocephalic Neck: Supple, JVD not distended Respiratory: Other (Symmetric chest expansion) Cardiovascular: No rubs, No murmurs Gastrointestinal: Soft and benign, Non-distended Musculoskeletal: No clubbing Integumentary: No warmth Neurological: Normal tone Urinary: Other (No bladder distention) External genitalia: Deferred Rectal: Deferred - Studies Medications List Reviewed: Yes Assessment And Plan - Plan 1. Acute kidney injury secondary to prerenal, dehydration. Renal fxn improving. SCr improved to 1.1. Cont TPN + D5W gtt. Monitor I/O, renal panel. 2. Hypernatremia. Serum Na improved to 155. Cont D5W gtt 100 cc/hr. Cont TPN 90 cc/hr. 3. Afib w/ RVR. On amio gtt. 4. HypoK. KCl repletion today. 5. HypoPO4. Phos repletion today. 6. Possible duodenitis. Upper GI series unable to complete today. Per other services. 7. HyperMg. Monitor. 8. Respiratory failure secondary to chronic obstructive pulmonary disease, questionable of volume status. Lasix prn.
[2022-05-04] MEDS: AMINO ACIDS 4.25 %/DEXTROSE 5% 2,000 ML, Lipids 20% 250 ML with MULTIVITAMINS INJ 10 ML IV SCH ×3 (16:41)
--- NOTE | 2022-05-04 18:31 | P.PN ---
Date of Service: 05/03/22 Subjective Subjective: No new changes, No C/O voiced, Improving Review of Systems 10-point ROS is otherwise unremarkable Physical Examination - Vital Signs REVIEWED - Physical Exam General: Alert, In no apparent distress, Oriented x2, Disheveled Respiratory: Diminished, Crackles/rales Cardiovascular: Regular rate/rhythm, Normal S1 S2, Systolic murmur Gastrointestinal: Normal bowel sounds, Soft and benign, Non-distended, No tenderness Musculoskeletal: No clubbing, No swelling, No tenderness Neurological: Normal speech, Sensation intact, Cranial nerves 3-12 intact, Other (GENERALIZED WEAKNESS) Assessment & Plan - Problems (Diagnosis) (1) Duodenal perforation Current Visit: Yes Status: Acute (2) Atrial fibrillation Current Visit: Yes Status: Acute (3) Acute on chronic renal failure Current Visit: Yes Status: Acute Qualifiers: Chronic kidney disease stage: stage 4 (severe) (4) Streptococcus agalactiae infection Current Visit: Yes Status: Acute (5) Hypernatremia Current Visit: Yes Status: Acute (6) Prerenal azotemia Current Visit: Yes Status: Acute (7) Diastolic heart failure Current Visit: Yes Status: Acute - Plan CONTINUE WITH PLAN OF CARE MENTIONED BELOW: 1. CONTINUE WITH BETA-CLINTON THERAPY ; IV BETA-CLINTON THERAPY. DISCUSSED WITH CARDIOLOGY REGARDING FURTHER INTERVENTION 2. HOLDING DIURETICS. MONITOR LABS CLOSELY 3. MONITOR RENAL FUNCTION 4. MONITOR SODIUM LEVEL 5. NPO; UPPER GI WITH GASTROGRAFIN IN A.M. 6. REPEAT ABDOMINAL FILMS 7. GI DVT PROPHYLAXIS Discharge Plan: Retirement Plan to discharge in: Greater than 2 days - Advance Directives Does patient have a Living Will: No Does patient have a Durable POA for Healthcare: No - Code Status/Comfort Care Code Status Assessed: Yes Code Status: Full Code Critical Care: No Time Spent Managing PTS Care (In Minutes): 35
--- NOTE | 2022-05-04 18:36 | P.PN ---
Date of Service: 05/04/22 Subjective PATIENT APPARENTLY ASPIRATED DURING GASTROGRAFIN STUDY. WILL START ANTIBIOTIC THERAPY TO COVER ASPIRATION PNEUMONIA. SPEECH THERAPY CONSULTATION FOR SATURDAY. REPEAT CHEST X-RAY IN THE MORNING. Review of Systems 10-point ROS is otherwise unremarkable Physical Examination - Vital Signs REVIEWED - Physical Exam General: Alert, In no apparent distress, Oriented x2, Disheveled Respiratory: Diminished, Crackles/rales Cardiovascular: Regular rate/rhythm, Normal S1 S2, Systolic murmur Gastrointestinal: Normal bowel sounds, Soft and benign, Non-distended, No tenderness Musculoskeletal: No clubbing, No swelling, No tenderness Neurological: Normal speech, Sensation intact, Cranial nerves 3-12 intact, Other (GENERALIZED WEAKNESS) Assessment & Plan - Problems (Diagnosis) (1) Duodenal perforation Current Visit: Yes Status: Acute (2) Atrial fibrillation with rapid ventricular response Current Visit: Yes Status: Acute (3) Acute on chronic renal failure Current Visit: Yes Status: Acute Qualifiers: Chronic kidney disease stage: stage 4 (severe) (4) Streptococcus agalactiae infection Current Visit: Yes Status: Acute (5) Hypernatremia Current Visit: Yes Status: Acute (6) Prerenal azotemia Current Visit: Yes Status: Acute (7) Diastolic heart failure Current Visit: Yes Status: Acute (8) aspiration pneumonia Current Visit: Yes Status: Acute - Plan CONTINUE WITH PLAN OF CARE MENTIONED BELOW: 1. CONTINUE WITH BETA-CLINTON THERAPY ; IV BETA-CLINTON THERAPY. AMIODARONE DRIP 2. HOLDING DIURETICS. MONITOR LABS CLOSELY 3. MONITOR RENAL FUNCTION 4. MONITOR SODIUM LEVEL 5. NPO; UPPER GI WITH GASTROGRAFIN IN A.M. 6. REPEAT CXR; ABX 7. GI DVT PROPHYLAXIS Discharge Plan: [facility] Plan to discharge in: Greater than 2 days - Advance Directives Does patient have a Living Will: No Does patient have a Durable POA for Healthcare: No - Code Status/Comfort Care Code Status Assessed: Yes Code Status: Full Code Critical Care: No Time Spent Managing PTS Care (In Minutes): 35
[2022-05-04] MEDS: SODIUM CHLORIDE 0.9% 10ML INJ IV PRN (21:48)
[2022-05-05] MEDS: METOPROLOL TARTRATE 5 MG/5 ML INJ IV SCH ×4 (01:41→18:15)
[2022-05-05] MEDS: AMPICILLIN/SULBACT 3 GM in NA CHLORIDE 0.9% 100 ML IVPB SCH ×4 (02:54→21:31)
[2022-05-05] MEDS: D5W 1,000 ML IV SCH ×2 (02:54→13:00)
[2022-05-05 04:06] LABS: Absolute Lymphocytes (CBC) 0.9 K/uL (0.7-4.9); Hematocrit 27.8 % (39.6-49.0); Lymphocytes % 6.9 % (15.3-44.8); MCV 83.9 fL (80-100); MPV 8.5 fL (7.6-11.3); RBC Red Blood Cell Count 3.31 M/uL (4.33-5.43)
[2022-05-05 04:17] LABS: Albumin 1.7 g/dL (3.4-5.0); Phosphorus 2.2 mg/dL (2.5-4.9); Potassium 3.1 mmol/L (3.5-5.1)
[2022-05-05 04:25] LABS: Albumin 1.7 g/dL (3.4-5.0); Bilirubin Total 0.7 mg/dL (0.2-1.0); Magnesium 2.3 mg/dL (1.8-2.4); Potassium 3.1 mmol/L (3.5-5.1); Protein, Total 5.3 g/dL (6.4-8.2)
--- NOTE | 2022-05-05 07:38 | RAD REPORT ---
EXAM DESCRIPTION: RAD - Chest Single View - 05/05/2022 5:36 am CLINICAL HISTORY: pneumonia COMPARISON: Chest Single View dated 05/04/2022; Chest Single View dated 05/01/2022; Chest Single View da antoine 04/27/2022; Chest Single View dated 03/02/2020; Thorax Wo Con dated 05/01/2022 FINDINGS: Lines: None. Lungs: Basilar airspace disease which is not well visualized due to radiographic technique but is britt ssly similar to 05/04/2022. Pleural: No significant pleural effusions or pneumothorax. Cardiac: Cardiomegaly. Mediastinum: Within normal limits. Bones: No acute fractures. Other: None IMPRESSION: Basilar airspace disease likely representing pneumonia that is grossly similar to 2021. Lung volumes and differences in radiographic technique limit the comparison.
[2022-05-05] MEDS: PANTOPRAZOLE 40 MG INJ IVP SCH ×2 (08:13→21:36)
--- NOTE | 2022-05-05 14:14 | P.PN ---
Subjective Date of Service: 05/05/22 Chief Complaint: CHF Exacerbation Today no overnight events Na 149, K 3.1 Cont D5W , will add KCL 20meq cont TPN Physical exam General: Awake, alert, in mild distress, upper respiratory secretions HEENT PERRLA, moist mucose membrane neck: supple, no elevated JVD CHEST; tachepneia mild rales HEART : RRR. Normal S1,2 no murmur or rub Abd: soft, Nt Ext: no edema Skin : No rash A/P 1. Acute kidney injury secondary to prerenal, dehydration. Renal fxn improving. SCr improved to 1.1. Cont TPN + D5W gtt. Monitor I/O, renal panel. 2. Hypernatremia. Serum Na improved to 149. Cont D5W gtt 100 cc/hr. Cont TPN 90 cc/hr. 3. Afib w/ RVR. On amio gtt. 4. HypoK. KCl repletion today., will add KCL to IVF 5. HypoPO4. Phos repletion today. 6. Possible duodenitis. Per other services. 7. HyperMg. Monitor. 8. Respiratory failure secondary to chronic obstructive pulmonary disease, Lasix prn., cont Inhalers 9 Afib: on amiodarone, rate controlled Physical Examination - Vital Signs Temperature: 96.9 F Blood Pressure: 113/65 Pulse: 88 Respirations: 20 Pulse Ox (%): 92 - Studies Medications List Reviewed: Yes
--- NOTE | 2022-05-05 14:31 | PN ---
Date of Progress Note: 05/05/2022 Subjective: Seen by bedside. No complaints. The patient is very poor historian, but is having sign ificant dysphagia, cannot take pills by mouth. No vomiting or diarrhea or dysuria or polyuria. All other systems reviewed and they were negative. Physical Examination: Vital Signs: Showed temperature is 96.8, pulse 88, breathing at 18, blood pressure 113/65, saturatin g 92%. General: Pleasant elderly male, no distress. Head and Neck: Pupils are equal, reactive to light. Intact eye movements. No JVD. No cervical lym phadenopathy. Neck is supple. Thyroid is not enlarged. Lungs: Clear to auscultation bilaterally. No rhonchi, wheezing, or crackles. No accessory muscle u se. Heart: Irregularly irregular. No extra sounds. Abdomen: Soft, nontender. Bowel sounds positive. No organomegaly. No masses or hernia. No rigidi ty or rebound. Extremities: No clubbing or cyanosis. Skin: No rash. Neurologic: Alert, awake, but with confusion. No acute focal deficits appreciated. Investigations: Labs were reviewed. Assessment And Recommendations: 1.Atrial fibrillation with rapid ventricular response, now on amiodarone drip. His heart rate is co ntrolled. Continue current management. 2.Severe dehydration and failure to thrive. This is improving. His sodium and chloride are coming down. Continue fluid management. SR/MODL Voice ID: [id number] Report ID: [id number]
[2022-05-05] MEDS: D5W 1,000 ML with POTASSIUM CL 20 MEQ IV SCH ×2 (14:56)
[2022-05-05] MEDS ORDERED: AA 4.25 %/D5W/ELECTROLYTES 2,000 ML IV SCH (17:00)
[2022-05-05] MEDS: AMINO ACIDS 4.25 %/DEXTROSE 5% 2,000 ML IV SCH (19:23)
[2022-05-05] MEDS: SODIUM CHLORIDE 0.9% 10ML INJ IV PRN (21:32)
[2022-05-05] MEDS: AMIODARONE IN DEXTROSE,ISO-OSM 360 MG/200 ML BAG IV ONE ×2 (23:41→23:42)
[2022-05-05] MEDS ORDERED: AMIODARONE IN DEXTROSE,ISO-OSM 360 MG/200 ML BAG IV ONE (23:45)
[2022-05-06] MEDS: METOPROLOL TARTRATE 5 MG/5 ML INJ IV SCH ×4 (00:38→19:52)
[2022-05-06] MEDS: D5W 1,000 ML with POTASSIUM CL 20 MEQ IV SCH ×6 (03:08→15:27)
[2022-05-06] MEDS: AMPICILLIN/SULBACT 3 GM in NA CHLORIDE 0.9% 100 ML IVPB SCH ×4 (03:09→21:33)
[2022-05-06 04:57] LABS: Albumin 1.7 g/dL (3.4-5.0); Phosphorus 1.9 mg/dL (2.5-4.9); Potassium 3.1 mmol/L (3.5-5.1)
[2022-05-06 07:20] LABS: Absolute Lymphocytes (CBC) 0.9 K/uL (0.7-4.9); Hematocrit 28.5 % (39.6-49.0); MPV 8.9 fL (7.6-11.3); RBC Red Blood Cell Count 3.39 M/uL (4.33-5.43)
[2022-05-06 07:26] LABS: Magnesium 2.2 mg/dL (1.8-2.4); Phosphorus 1.6 mg/dL (2.5-4.9); Potassium 3.3 mmol/L (3.5-5.1)
[2022-05-06] MEDS: PANTOPRAZOLE 40 MG INJ IVP SCH ×2 (09:22→21:34)
[2022-05-06] MEDS: AMIODARONE HCL 900 MG in Dextrose 5%-Water 482 ML IV SCH (11:24)
--- NOTE | 2022-05-06 13:27 | P.PN ---
Subjective Date of Service: 05/06/22 Chief Complaint: CHF Exacerbation Today no overnight events Sodium improved to 140 will reduce D5W rate ot 70ml/hr Physical exam General: Awake, alert, in mild distress, upper respiratory secretions HEENT PERRLA, moist mucose membrane neck: supple, no elevated JVD CHEST; tachepneia mild rales HEART : Systolic murmur , no rub Abd: soft, Nt Ext: no edema Skin : No rash A/P 1. Acute kidney injury secondary to prerenal, dehydration. Renal fxn improving. SCr improved to 1.1. Cont TPN + D5W gtt. Monitor I/O, renal panel. 2. Hypernatremia. Serum Na improved to 140. Cont D5W gtt will reduce rate to 70ml/hr . Cont TPN 90 cc/hr. 3. Afib w/ RVR. On amiodarone gtt. 4. HypoK. KCl repletion today., will add KCL to IVF 5. HypoPO4. Phos repletion today. 6. Possible duodenitis. Per other services. 7. HyperMg. Monitor. 8. Respiratory failure secondary to chronic obstructive pulmonary disease, Lasix prn., cont Inhalers Total time spent 35 minutes including documentation, reviewing labs , placing orders and discussing with medical team Physical Examination - Vital Signs Temperature: 97.0 F Blood Pressure: 181/74 Pulse: 89 Respirations: 18 Pulse Ox (%): 97 - Studies Medications List Reviewed: Yes
[2022-05-06] MEDS: AMINO ACIDS 4.25 %/DEXTROSE 5% 2,000 ML IV SCH ×2 (17:00→21:34)
[2022-05-07] MEDS: METOPROLOL TARTRATE 5 MG/5 ML INJ IV SCH ×4 (01:06→19:33)
[2022-05-07] MEDS: AMPICILLIN/SULBACT 3 GM in NA CHLORIDE 0.9% 100 ML IVPB SCH ×4 (04:34→19:33)
--- NOTE | 2022-05-07 05:38 | EKG ---
Test Date: 2022-05-07 Test Time: 01:00:07 Venetian Blind Washer: SAIRA MEASUREMENT RESULTS: Intervals: Rate: 65 ME: 210 QRSD: 100 QT: 472 QTc: [address]: P: 58 ME: 210 QRS: 57 T: 124 INTERPRETIVE STATEMENTS: Sinus rhythm with 1st degree AV block ST & T wave abnormality, consider lateral ischemia Prolonged QT Abnormal ECG Compared to ECG 05/04/2022 11:11:23 First degree AV block now present Prolonged QT interval now present Atrial fibrillation no longer present ST (T wave) deviation still present Possible ischemia still present Electronically Signed On 05-07-22 05:37:37 CDT by Micheal Lopez
--- NOTE | 2022-05-07 05:49 | P.PN ---
Date of Service: 05/05/22 Subjective patient most likely will need long-term TPN. Unable to do PEG tube for dysphagia because of questionable duodenal free air. Will probably need LTAC placement. Will discuss the case with General surgery. Cardiology recommending continue with amiodarone and monitor LFTs. Review of Systems 10-point ROS is otherwise unremarkable Physical Examination - Vital Signs REVIEWED - Physical Exam General: Alert, In no apparent distress, Oriented x2, Disheveled Respiratory: Diminished, Crackles/rales Cardiovascular: Regular rate/rhythm, Normal S1 S2, Systolic murmur Gastrointestinal: Normal bowel sounds, Soft and benign, Non-distended, No tenderness Musculoskeletal: No clubbing, No swelling, No tenderness Neurological: Normal speech, Sensation intact, Cranial nerves 3-12 intact, Other (GENERALIZED WEAKNESS) Assessment & Plan - Problems (Diagnosis) (1) Duodenal perforation/dysphagia Current Visit: Yes Status: Acute (2) Atrial fibrillation with rapid ventricular response Current Visit: Yes Status: Acute (3) Acute on chronic renal failure Current Visit: Yes Status: Acute Qualifiers: Chronic kidney disease stage: stage 4 (severe) (4) Streptococcus agalactiae infection Current Visit: Yes Status: Acute (5) Hypernatremia Current Visit: Yes Status: Acute (6) Prerenal azotemia Current Visit: Yes Status: Acute (7) Diastolic heart failure Current Visit: Yes Status: Acute (8) aspiration pneumonia Current Visit: Yes Status: Acute - Plan CONTINUE WITH PLAN OF CARE MENTIONED BELOW: 1. CONTINUE WITH BETA-CLINTON THERAPY ; IV BETA-CLINTON THERAPY. AMIODARONE DRIP 2. HOLDING DIURETICS. MONITOR LABS CLOSELY 3. MONITOR RENAL FUNCTION 4. MONITOR SODIUM LEVEL 5. NPO; UPPER GI WITH GASTROGRAFIN RESULTED IN POSSIBLE ASPIRATION; FUTURE PEG TUBE IF NO IMPROVEMENT; PT AGREEABLE 6. REPEAT CXR; CONT. ABX 7. GI DVT PROPHYLAXIS Discharge Plan: LTAC Plan to discharge in: Greater than 2 days - Advance Directives Does patient have a Living Will: No Does patient have a Durable POA for Healthcare: No - Code Status/Comfort Care Code Status Assessed: Yes Code Status: Full Code Critical Care: No Time Spent Managing PTS Care (In Minutes): 35
--- NOTE | 2022-05-07 05:54 | P.PN ---
Date of Service: 05/06/22 Subjective We will need long-term TPN. Unable to do PEG tube for dysphagia because of questionable duodenal free air x 2-4 weeks. Will probably need LTAC placement. Will discuss the case with General surgery. Cardiology recommending continue with amiodarone and monitor LFTs. Sodium is improved. Repeat CXR to monitor aspiration; Spoke with brother who is designated MPOA if pt unable to make decisions; volume status stable Review of Systems 10-point ROS is otherwise unremarkable Physical Examination - Vital Signs REVIEWED - Physical Exam General: Alert, In no apparent distress, Oriented x2, Disheveled Respiratory: Diminished, Crackles/rales Cardiovascular: Regular rate/rhythm, Normal S1 S2, Systolic murmur Gastrointestinal: Normal bowel sounds, Soft and benign, Non-distended, No tenderness Musculoskeletal: No clubbing, No swelling, No tenderness Neurological: Normal speech, Sensation intact, Cranial nerves 3-12 intact, Other (GENERALIZED WEAKNESS) Assessment & Plan - Problems (Diagnosis) (1) Duodenal perforation/dysphagia Current Visit: Yes Status: Acute (2) Atrial fibrillation with rapid ventricular response Current Visit: Yes Status: Acute (3) Acute on chronic renal failure Current Visit: Yes Status: Acute Qualifiers: Chronic kidney disease stage: stage 4 (severe) (4) Streptococcus agalactiae infection Current Visit: Yes Status: Acute (5) Hypernatremia Current Visit: Yes Status: Acute (6) Prerenal azotemia Current Visit: Yes Status: Acute (7) Diastolic heart failure Current Visit: Yes Status: Acute (8) aspiration pneumonia Current Visit: Yes Status: Acute - Plan CONTINUE WITH PLAN OF CARE MENTIONED BELOW: 1. AMIODARONE DRIP; CONT IV BETA-CLINTON IN ADDITION FOR BP CONTROL 2. HOLDING DIURETICS. MONITOR LABS CLOSELY 3. MONITOR RENAL FUNCTION 4. MONITOR SODIUM LEVEL 5. NPO; UPPER GI WITH GASTROGRAFIN RESULTED IN POSSIBLE ASPIRATION; FUTURE PEG TUBE IF NO IMPROVEMENT; PT AGREEABLE 6. REPEAT CXR; CONT. ABX 7. GI DVT PROPHYLAXIS Discharge Plan: LTAC Plan to discharge in: Greater than 2 days - Advance Directives Does patient have a Living Will: No Does patient have a Durable POA for Healthcare: No - Code Status/Comfort Care Code Status Assessed: Yes Code Status: Full Code Critical Care: No Time Spent Managing PTS Care (In Minutes): 35
[2022-05-07] MEDS ORDERED: D5W 1,000 ML with POTASSIUM CL 20 MEQ IV SCH ×2 (06:00)
[2022-05-07 06:52] LABS: Absolute Lymphocytes (CBC) 0.8 K/uL (0.7-4.9); Lymphocytes % 4.9 % (15.3-44.8); MCV 82.9 fL (80-100); MPV 8.8 fL (7.6-11.3); RBC Red Blood Cell Count 2.54 M/uL (4.33-5.43)
[2022-05-07] MEDS: D5W 1,000 ML with POTASSIUM CL 20 MEQ IV SCH ×2 (07:00)
[2022-05-07 07:05] LABS: Potassium 3.4 mmol/L (3.5-5.1)
[2022-05-07 07:09] LABS: Albumin 1.6 g/dL (3.4-5.0); Bilirubin Direct 0.3 mg/dL (0-0.2); Bilirubin Total 0.7 mg/dL (0.2-1.0); Protein, Total 5.3 g/dL (6.4-8.2)
[2022-05-07 07:54] LABS: Blood Morphology Comment NOTED (NOT SEEN); Hypochromasia 1+; Platelet Estimate ADEQ; Platelets, Giant 1+
--- NOTE | 2022-05-07 08:32 | RAD REPORT ---
EXAM DESCRIPTION: RAD - Abdomen 1 View (KUB) - 05/07/2022 6:24 am CLINICAL HISTORY: duodenal free air eval Pain COMPARISON: Thorax Wo Con dated 05/01/2022; Abdomen Wo Contrast dated 05/01/2022 FINDINGS: Nonobstructive bowel-gas pattern. No significant volume of free air seen in the abdomen. B ibasilar lung opacities are present likely atelectasis.
--- NOTE | 2022-05-07 08:33 | RAD REPORT ---
EXAM DESCRIPTION: RAD - Chest Single View - 05/07/2022 6:24 am CLINICAL HISTORY: pneumonia Chest pain. COMPARISON: Abdomen 1 View (KUB) dated 05/07/2022; Chest Single View dated 05/05/2022; Chest Single Vi ew dated 05/04/2022; Chest Single View dated 05/01/2022 FINDINGS: Portable technique limits examination quality. Patchy bibasilar lung opacities have moderately worsened since 05/05/2022 study. This likely represen ts progression in pneumonia. The heart is mildly enlarged in size. No displaced fractures. IMPRESSION: Moderate worsening bibasilar lung infiltrate since comparative study.
[2022-05-07] MEDS: PANTOPRAZOLE 40 MG INJ IVP SCH ×2 (09:03→19:34)
[2022-05-07] MEDS ORDERED: MAGNES/ALUMIN/SIMET 30ML UCUP PO ONE (09:38)
[2022-05-07] MEDS ORDERED: DIPHENHYDRAMINE 12.5MG/5ML LIQ PO ONE (09:38)
[2022-05-07] MEDS ORDERED: LIDOCAINE VISCOUS 2% SOLN 15 ML UDC PO ONE (09:38)
[2022-05-07] MEDS ORDERED: MAGIC MOUTHWASH 180 ML BTL PO PRN (10:00)
--- NOTE | 2022-05-07 11:46 | PN ---
Date of Progress Note: 05/04/2022 Diagnoses: History of possible contained duodenal perforation. Subjective: This is the case of an 86-year-old patient, admitted to the hospital for multiple medica l issues including also pneumonia. During the workup for pneumonia, the patient has some findings on the CT scan on the area of the duodenum. A CAT scan was done and repeated. It shows a small amount of air near the duodenum, . Differential diagnosis for a possible perforation versus a tumor. Person at that moment was asymptomatic. He decided to continue conservative treatme nt that happened a week ago. Today, he is still asymptomatic for abdominal pain, so we are trying to do an upper GI series, trying to make sure that area is patent, so we can start feeding, but they co uld not do the test since the patient once again has a possibility of aspiration into the lung from t he Gastrografin study, so the case was canceled. Objective: General: I examined the patient right now. He is awake and alert, no distress. Lungs: Bilateral breath sounds. Abdomen: Soft and depressible. No guarding or rebound. No peritoneal signs. No epigastric pain. Laboratory Data: Blood work was reviewed. Plan: Between me and the GI physician, we have the plan of the upper GI series now because of the as piration and the tendency of aspiration, which will help us probably understand why the patient with pneumonia at the beginning, still the question of how can we . I discussed the case with . Once this possible aspiration gets resolved , he might try again with the insertion of a nasogastric tube and to the stomach and then once again rule out any leak. Once we have that, then we can give you more answers about the patency of that region and how can we advance diet. At the same time, this test also shows that he may be normally aspirating, that is why he comes here with pneumonia and necessary steps should be followed. MARISELA/JHON Voice ID: [id number] Report ID: [id number]
[2022-05-07] MEDS: LIDOCAINE VISCOUS 2% SOLN 15 ML UDC PO PRN (11:50)
[2022-05-07] MEDS: MAGNES/ALUMIN/SIMET 30ML UCUP PO PRN (11:50)
[2022-05-07] MEDS: DIPHENHYDRAMINE 12.5MG/5ML LIQ FT PRN (11:50)
--- NOTE | 2022-05-07 14:14 | P.PN ---
Subjective Date of Service: 05/07/22 Chief Complaint: CHF Exacerbation No acute events overnight. He reports that his shortness of breath has improved significantly. He reports persistent cough when trying to swallow. Review of Systems 10-point ROS is otherwise unremarkable Respiratory: Cough, Dry Gastrointestinal: Other (dysphagia) Physical Examination - Vital Signs Temperature: 97.5 F Blood Pressure: 189/63 Pulse: 72 Respirations: 18 Pulse Ox (%): 97 - Studies Medications List Reviewed: Yes Assessment And Plan - Plan - Physical Exam General: Alert, In no apparent distress, Oriented x3 Neck: Supple, JVD not distended Respiratory: Faint rhonchi/gurgles Cardiovascular: trace bilateral lower extremity pitting edema, Regular rate/rhythm, Normal S1 S2, No gallops, No rubs, No murmurs Gastrointestinal: Normal bowel sounds, Soft and benign, Non-distended, No tenderness, No rebound, No guarding Musculoskeletal: No clubbing Integumentary: No rashes Neurological: Normal gait, Normal strength at 5/5 x4 extr, Cranial nerves 3-12 intact # Concern for Acute Duodenal Perforation - General Surgery consulted - recommendations appreciated - Gastroenterology consulted - recommendations appreciated - CT abdomen/pelvis = "Wall thickening of the second portion of the duodenum with extraluminal air and inflammatory changes. This may indicate a perforated ulcer or perforated mass. Cholelithiasis is suspected. Bilateral pulmonary opacities may indicate pneumonia" - KUB (05/07) = "Nonobstructive bowel-gas pattern. No significant volume of free air seen in the abdomen. Bibasilar lung opacities are present likely atelectasis." - Strict NPO on TPN - Will likely need LTAC placement for TPN followed by re-evaluation for PEG-tube placement in 4-6 weeks # Acute Hypoxemic Respiratory Failure - likely secondary to Aspiration Pneumonia (improving) Currently, he is on 2 L nasal cannula, with improvement of his SpO2 readings to 100 %. - Evaluation thus far: - Procalcitonin = 6.29 - ABG = pH 7.38, PCO2 47, PO2 62.6 - Chest x-ray = "Moderate CHF." - CT chest = "Moderate airspace opacities are present in both lung bases posteriorly most compatible with bibasilar pneumonia." - Management plan: - Consulted Pulmonary Medicine - recommendations appreciated - Consulted Respiratory Therapy - Supplemental oxygen to maintain SpO2 > 92% - Continue antibiotics as mentioned below - PRN benzonatate - Encouraged incentive spirometry # Sepsis likely secondary to Aspiration Pneumonia with Group B Streptococcus Agalactiae Bacteremia She met sepsis criteria based on HR > 90 bpm, RR > 20 breaths/min, and > 10% bands and the suspected source is pneumonia with bacteremia. Although his creatinine >2.0 mg/dL, I suspect this to be more cardiorenal syndrome rather than sepsis-induced. - Sepsis order set was initiated - Initial Lactate was 1.6 - Blood cultures drawn before antibiotics were given - 11/27 positive for Streptococcus Agalactiae Group B - Broad spectrum antibiotics started: Ceftriaxone + Doxycycline - switched to Vancomycin + Piperacillin-Tazobactam - Transitioned to ampicillin-sulbactam (renally dosed) - 30 mL/kg of IV fluids was not administered given SBP > 90, MAP > 65, lactic acid < 4, and concern for volume overload due to CHF - CT chest (05/01) = "significant bilateral lower lobe infection or aspiration pneumonia. 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 left ventricular hypertrophy. aortic sclerosis. diastolic dysfunction." - Continue home meds as tolerated - NT-Pro BNP = 7,390 - Daily weights - Strict I/O # KDIGO Stage II Acute Kidney Injury - (resolved) - Creatinine = 2.31 -> 2.47 -> 2.66 -> 1.27 (was 1.21 on 03/02/2020) - Urinalysis = 1+ protein - Monitor creatinine and urine output - If worsening, obtain renal ultrasound - Renally dose medications Naldo Mcgee M.D.
[2022-05-07] MEDS: AMIODARONE HCL 900 MG in Dextrose 5%-Water 482 ML IV SCH (16:12)
[2022-05-07] MEDS: AMINO ACIDS 4.25 %/DEXTROSE 5% 2,000 ML, Lipids 20% 250 ML with MULTIVITAMINS INJ 10 ML IV SCH ×3 (17:16)
[2022-05-07] MEDS: SODIUM CHLORIDE 0.9% 10ML INJ IV PRN (19:34)
--- NOTE | 2022-05-07 20:34 | PN ---
Subjective: The patient lying in bed. Continue to be on Unasyn. The patient's white count is sligh tly elevated. We might add another antibiotic if the patient does not improve, likely Levaquin. The patient is also on TPN. Objective: Lungs: Clear to auscultation. Heart: S1, S2. Regular. Abdomen: Soft, nontender. Bowel sounds present. Extremities: Trace edema. Vital Signs: Stable. Assessment And Plan: Leukocytosis, perforated duodenal ulcer, gram-positive cocci, Strep B bacteremi a. Recommend long-term acute care at [facility]. We will follow the patient as needed. NF/MODL Voice ID: [id number] Report ID: [id number]
--- NOTE | 2022-05-07 20:34 | PN ---
Date of Progress Note: 05/07/2022 Subjective: Seen by bedside. Patient is sitting in the chair, clinically doing well. Review of Systems: No complaint. Patient is a poor historian, but apparently he is still n.p.o. Physical Examination: Vital Signs: Temperature is 97.5, pulse 72, breathing at 18, blood pressure is 189/63, saturating 97 %. General: Pleasant elderly male, no distress. Head and Neck: Pupils are equal, reactive to light. Intact eye movements. No JVD. No cervical lym phadenopathy. Neck: Supple. Thyroid is not enlarged. Lungs: Clear to auscultation bilaterally. No rhonchi, wheezing, or crackles. No accessory muscle u se. Heart: Irregularly irregular. No extra sounds. Abdomen: Soft, nontender. Bowel sounds positive. No organomegaly. No masses or hernia. No rigidi ty or rebound. Extremities: No clubbing or cyanosis. Intact pulses. Skin: No rash. Neurologic: Alert, awake, with confusion. No acute focal deficits appreciated. Investigations: His liver enzymes are normal. BUN 44, creatinine is 1.27. White blood cell count 1 7,000, hemoglobin 7.1. Assessment And Recommendation: 1.Atrial fibrillation, rate is controlled now with amiodarone. We will continue with IV amiodarone for another day and we will discuss with the primary care physician on the plan for nutrition and onc e the patient is able to take medications by mouth to change the amiodarone to 200 mg by mouth twice a day, and this patient will not be a candidate for anticoagulation due to overall dementia, and he m ight benefit from appendage closure if he gets hemodynamically and clinically stable. 2.Hypernatremia due to dehydration, improved. 3.Acute renal failure due to dehydration. This is resolved. SR/MODL Voice ID: [id number] Report ID: [id number]
[2022-05-08] MEDS: LIDOCAINE VISCOUS 2% SOLN 15 ML UDC PO PRN (00:21)
[2022-05-08] MEDS: DIPHENHYDRAMINE 12.5MG/5ML LIQ FT PRN (00:22)
[2022-05-08] MEDS: MAGNES/ALUMIN/SIMET 30ML UCUP PO PRN (00:22)
[2022-05-08] MEDS: METOPROLOL TARTRATE 5 MG/5 ML INJ IV SCH ×5 (01:00→20:10)
[2022-05-08] MEDS: AMPICILLIN/SULBACT 3 GM in NA CHLORIDE 0.9% 100 ML IVPB SCH ×4 (02:23→20:12)
--- NOTE | 2022-05-08 03:04 | PN ---
Date of Progress Note: 05/07/2022 Chief Complaint: CHF exacerbation, acute on chronic kidney injury, hypernatremia. Patient received D5W for treatment of hypernatremia. He has a sore throat today. Complains of generalized weakness. Denies chest pain, palpitation. Physical Examination: Lungs: Clear to auscultation bilaterally. Heart: S1, S2. Abdomen: Soft. Extremities: No edema. Impression And Plan: 1.Acute kidney injury due to volume depletion. Patient received IV fluids. Renal function has stab ilized. Patient is on TPN and D5W to control electrolyte abnormalities. 2.Hypernatremia, has improved gradually. 3.Hypokalemia. The patient is receiving potassium chloride with IV infusion and hypophosphatemia wa s stabilized with repletion of phosphorus as well. 4.The patient has history of chronic obstructive pulmonary disease. The patient is on Lasix as need ed for volume control. EB/MODL Voice ID: [id number] Report ID: [id number]
[2022-05-08 06:38] LABS: Absolute Lymphocytes (CBC) 0.8 K/uL (0.7-4.9); Hematocrit 23.9 % (39.6-49.0); Lymphocytes % 6.3 % (15.3-44.8); MCV 82.6 fL (80-100); MPV 8.8 fL (7.6-11.3); RBC Red Blood Cell Count 2.89 M/uL (4.33-5.43)
[2022-05-08 06:53] LABS: Potassium 3.4 mmol/L (3.5-5.1)
[2022-05-08] MEDS ORDERED: NA CHLORIDE 0.9% 100 ML ONE (08:17)
[2022-05-08] MEDS: PANTOPRAZOLE 40 MG INJ IVP SCH ×2 (08:25→20:11)
--- NOTE | 2022-05-08 12:09 | RAD REPORT ---
EXAM DESCRIPTION: RAD - Chest Single View - 05/08/2022 4:54 am CLINICAL HISTORY: 86 years Male, PICC LINE COMPARISON: Prior chest x-ray report from 05/07/2022. The image was unavailable for review. TECHNIQUE: Single portable x-ray view of the chest performed on 05/08/2022 at 4:22 AM FINDINGS: Lungs are well-expanded. There is patchy bibasilar opacification which may be due to atele ctasis, fibrosis or inflammatory changes. There is no evidence of a pneumothorax. The cardiac silhouette is prominent and may be partly accentuated by the portable technique. The mediastinal contours are normal. No acute osseous abnormality is identified. No acute soft tissue abnormalities are seen. Lines and tubes: The right upper extremity PICC line catheter tip terminates in the region of the d istal SVC. There are overlying can sterilizer leads. Free air: None IMPRESSION: 1. Patchy bibasilar opacification which may be due to atelectasis, fibrosis or inflamm atory changes. 2. The tip of the right upper extremity PICC line catheter terminates in the region of the distal S VC. Electronically signed by: Cally Samuels DO 05/08/2022 5:57 AM CDT Due to temporary technical issues with the PACS/Fluency reporting system, reports are being signed by the in house radiologists without review as a courtesy to insure prompt reporting. The interpreting radiologist is fully responsible for the content of the report.
--- NOTE | 2022-05-08 12:19 | PN ---
Subjective: The patient has gone down for NG tube placement. His vitals are 97, pulse 62, respirati ons 24, blood pressure 153/49 according to nurse. No new acute event overnight. Laboratory Data: Shows WBC 12.2 down from 17.2, hemoglobin 8.2, platelets 135. Chemistry shows sodi um 138, potassium 3.4, chloride 108, bicarb 27, BUN 51, creatinine 1.4, glucose 143. Assessment And Plan: Leukocytosis improving, perforated duodenal ulcer, gram-positive cocci and Stap h B bacteremia. Continue supportive care and antibiotic. Consider long-term acute care. We will fo llow the patient as needed. NF/MODL Voice ID: [id number] Report ID: [id number]
--- NOTE | 2022-05-08 12:31 | PN ---
Date of Progress Note: 05/08/2022 Reason For Service: Duodenal abnormality, tumor versus perforation, soft contained. Subjective: The patient is doing well for the last week and a half. Has no abdominal pain. No vomi ting. No abdominal pain. Objective: Chest: Clear. Abdomen: Soft and depressible. No guarding or rebound. No peritoneal signs. Extremities: Good capillary refill. Laboratory Data: Blood work reviewed. Plan: Still pending the upper GI series. We had it for the last week, but there was a possibility o f aspiration, so radiologist called me and said he was going to postpone that for Saturday and on , he was going to trying to deal with nasogastric tube placement and then do the GI series. Yesterd ay, I noticed it was not done. So, we once again reminding today that we still pending for the study that will help us once again check the patency of the duodenum and that will open then the opportuni ty to also eventually once we know there is no leakage during the swallowing study to see and trying to understand why he has a tendency for aspiration after p.o. intake. Right now, abdomen is benign. We are awaiting for the study. MARISELA/JHON Voice ID: [id number] Report ID: [id number]
[2022-05-08] MEDS ORDERED: FUROSEMIDE 40 MG/4 ML VIAL IV ONE (12:57)
[2022-05-08] MEDS ORDERED: POTASSIUM CL 40 MEQ in NA CHLORIDE 0.9% 500 ML IV SCH (13:00)
--- NOTE | 2022-05-08 15:23 | RAD REPORT ---
EXAM DESCRIPTION: CT - Abdomen Wo Contrast - 05/08/2022 2:34 pm CLINICAL HISTORY: POST UPPER GI W/ GASTRO COMPARISON: <Comparisons> TECHNIQUE: Axial [address] imaging of the abdomen was performed. No IV contrast was adm inistered. Oral contrast was administered. All CT scans are performed using dose optimization technique as appropriate and may include automated exposure control or mA/KV adjustment according to patient size. FINDINGS: Large bilateral areas of lower lobe consolidation present similar to prior imaging. No imp rovement. The liver, spleen, and pancreas show no suspicious findings for non IV contrast imaging. Gallbladder is contracted. No biliary tree dilatation. No hydronephrosis or suspicious renal mass. Isodense masses and pyelonephritis are not excluded on a non IV contrast study. Lower pole left renal cyst again identified.No adrenal abnormality. Stomach and proximal small bowel is filled with Gastrografin contrast material utilized for the upper GI examination the pre seated this CT study. Gastrografin contrast is present in the stomach and duo denum. Multiple peristaltic waves were observed during the upper GI examination. There is no extralum inal extension of the Gastrografin contrast. The crescent-shaped air in fluid collection conforming to the duodenal C-loop has developed into a mo re defined collection along the right lateral margin of the duodenal C-loop approximately 7 x 5 mm in size. There is no Gastrografin contrast within this extraluminal collection. The C-loop is distorted in contour due to mass effect from this extraluminal collection. No free air or pneumatosis. IMPRESSION: None of the Gastrografin contrast material administered for the upper GI that immediatel y preceding the CT study has extended outside of the lumen of the stomach, duodenum or proximal small bowel. The extraluminal collection along the duodenal C-loop previously detailed is not seen as a more defin ed 7 x 5 mm air in fluid collection. This contains no Gastrografin. Etiology for this collection remains uncertain. A perforated duodenal ulcer was initially suspected though the patient is apparently without upper GI perforation symptoms. Perforation or leakage from a duodenal diverticulum would be possible. Duodenal mass would be possible but uncommon. No mass is ev ident on the earlier imaging from May 01.
--- NOTE | 2022-05-08 15:30 | RAD REPORT ---
EXAM DESCRIPTION: CT - Soft Tissue Neck Wo Contr - 05/08/2022 2:34 pm CLINICAL HISTORY: SOFT TISSUE COMPARISON: Abdomen Wo Contrast dated 2RAD THERAPY FLD PLACE NECK dated 08/31/2015 TECHNIQUE: Axial 3 millimeter thick images of the neck were obtained without oral or IV contrast. All CT scans are performed using dose optimization technique as appropriate and may include automated exposure control or mA/KV adjustment according to patient size. FINDINGS: NG tube is in place. The patient may have swallowed a U shaped partial denture. The dentur e is seen in the right-side of the inferior oropharynx extending inferiorly. The 2 posterior prongs a re directed inferiorly 1 of which extends into the valleculae and pyriform sinuses anterior to the ep iglottis. The posterior prong extends into the upper cervical esophagus. No pharyngeal mucosal mass. No abnormal lymphadenopathy. IMPRESSION: Patient has swallowed a partial denture with the U shaped device straddling the epiglott is.
--- NOTE | 2022-05-08 15:35 | RAD REPORT ---
EXAM DESCRIPTION: RAD - Upper GI Series Wo KUB - 05/08/2022 2:42 pm CLINICAL HISTORY: Duodenum perforation COMPARISON: None. FINDINGS: Limited upper GI examination was performed. Patient aspirated several days earlier during attempted Gastrografin upper GI. An NG tube was placed immediately prior to this procedure by nursing personnel. NG tube was placed using fluoroscopic guidance and placement into the stomach was confirm ed. Prior to placement of the NG tube, preliminary imaging showed a dense radiopaque device in the upper cervical spine region. This was confirmed subsequently to be a partial denture that straddles the epi glottis and partially extends into the upper cervical esophagus. Approximately 240 mL of a diluted Gastrografin mixture was injected via the NG tube. No reflux occurr ed around the NG tube. Gastric mucosal fold pattern was grossly normal. Multiple peristaltic waves we re observed traversing the duodenum. No extraluminal extension of the Gastrografin contrast was obser hossein. No delay in transit of contrast from the stomach into the duodenum. Fluoro time was 10 minutes 33 seconds Total of 32 portable C-arm images were acquired. IMPRESSION: All Gastrografin contrast material remained within the lumen of the stomach, duodenum an d proximal small bowel. The Gastrografin mucosal fold pattern is slightly irregular. Given the limited amount of contrast and patient mobility issues, optimal distention of the duodenum could not be obtained. Patient has swallowed a partial denture lodged in the inferior aspect of the oropharynx and upper cer vical esophagus, straddling the epiglottis.
[2022-05-08] MEDS: AMINO ACIDS 4.25 %/DEXTROSE 5% 2,000 ML IV SCH (17:09)
--- NOTE | 2022-05-08 18:25 | PN ---
Date of Progress Note: 05/08/2022 Subjective: The patient was admitted with acute kidney injury secondary to prerenal. The patient lemons d shortness of breath secondary to pulmonary hypertension. His acute kidney injury has been improved . The patient develop hypernatremia, which is treated with free water. Sodium trended down nicely. The patient is still requiring oxygen. Physical Examination: Vital Signs: Blood pressure 160/66, pulse of 63, afebrile. Chest: Decreased entry bilateral base. Heart: S1, S2. Systolic murmur. Abdomen: Soft, nontender. Extremity: Trace edema. Neuro: Alert. No focality. Laboratory Data: Sodium 138, potassium 3.4, bicarb 27, BUN 51, creatinine 1.4, calcium 7.7. H and H 8.2/23.9. Current Medications: The patient on include; 1.Ampicillin-sulbactam. 2.Amiodarone. 3.TPN. 4.D5. Assessment And Plan: 1.Acute kidney injury secondary to prerenal, dehydration, recovered, resolved. Looked to me the pat ient currently on the over volume side. Hypernatremia has been resolved. I am going to go ahead and discontinue the D5 and we will monitor the patient. I am going to give the patient a single dose of Lasix. 2.Hypernatremia secondary to third spacing, dehydration, recovered, resolved. Discontinue D5. 3.Hypokalemia. We will supplement. 4.Hypophosphatemia, resolved. We will follow up level. 5.Alkalosis secondary to hypercapnic respiratory acidosis, pulmonary hypertension. We will follow u p with the primary. 6.Respiratory failure secondary to chronic obstructive pulmonary disease, over volume. We will diur hakeem. We will follow up with Pulmonary. 7.Duodenitis. Follow up with Surgery. Continue current antibiotic. Time spent examining the patient face to face, placing order, reviewing data lab, and radiology, disc ussing the case with the staff member including hospitalist and nursing more than 35 minutes. LUCY Voice ID: [id number] Report ID: [id number]
--- NOTE | 2022-05-08 19:54 | P.PN ---
Subjective Date of Service: 05/08/22 Chief Complaint: CHF Exacerbation No acute events overnight. He reports persistent dysphagia. He states that his shortness of breath is unchanged compared to yesterday. On exam, his voice appears more hoarse this morning. Review of Systems 10-point ROS is otherwise unremarkable Respiratory: Cough, Shortness of Breath Gastrointestinal: Other (dysphagia) Physical Examination - Vital Signs Temperature: 96.7 F Blood Pressure: 187/68 Pulse: 69 Respirations: 20 Pulse Ox (%): 98 - Studies Medications List Reviewed: Yes Assessment And Plan - Plan - Physical Exam General: Alert, In no apparent distress, Oriented x3, hoarse voice with audible gurgling Neck: Supple, JVD not distended Respiratory: Faint rhonchi/gurgles Cardiovascular: trace bilateral lower extremity pitting edema, Regular rate/rhythm, Normal S1 S2, No gallops, No rubs, No murmurs Gastrointestinal: Normal bowel sounds, Soft and benign, Non-distended, No tenderness, No rebound, No guarding Musculoskeletal: No clubbing Integumentary: No rashes Neurological: Normal gait, Normal strength at 5/5 x4 extr, Cranial nerves 3-12 intact # Concern for Acute Duodenal Perforation # Dysphagia secondary to Ingested Partial Denture - General Surgery consulted - recommendations appreciated - Gastroenterology consulted - recommendations appreciated - CT abdomen/pelvis = "Wall thickening of the second portion of the duodenum with extraluminal air and inflammatory changes. This may indicate a perforated ulcer or perforated mass. Cholelithiasis is suspected. Bilateral pulmonary opacities may indicate pneumonia" - KUB (05/07) = "Nonobstructive bowel-gas pattern. No significant volume of free air seen in the abdomen. Bibasilar lung opacities are present likely atelectasis." - Strict NPO on TPN - Will likely need LTAC placement for TPN followed by re-evaluation for PEG-tube placement in 4-6 weeks - While attempting to obtain repeat gastrograffin study, a CT neck was obtained, which revealed, "patient has swallowed a partial denture with the U shaped device straddling the epiglottis." - Spoke with Dr. Jacinto (Emergency Medicine) who was able to remove the device - He immediately noted improvement in his symptoms and his voice was much clearer - He stated that he remembered falling asleep with the denture in, but thought it was misplaced # Acute Hypoxemic Respiratory Failure - likely secondary to Aspiration Pneumonia (improving) Currently, he is on 2 L nasal cannula, with improvement of his SpO2 readings to 97 %. - Evaluation thus far: - Procalcitonin = 6.29 - ABG = pH 7.38, PCO2 47, PO2 62.6 - Chest x-ray = "Moderate CHF." - CT chest = "Moderate airspace opacities are present in both lung bases posteriorly most compatible with bibasilar pneumonia." - Management plan: - Consulted Pulmonary Medicine - recommendations appreciated - Consulted Respiratory Therapy - Supplemental oxygen to maintain SpO2 > 92% - Continue antibiotics as mentioned below - PRN benzonatate - Encouraged incentive spirometry # Sepsis likely secondary to Aspiration Pneumonia with Group B Streptococcus Agalactiae Bacteremia She met sepsis criteria based on HR > 90 bpm, RR > 20 breaths/min, and > 10% bands and the suspected source is pneumonia with bacteremia. Although his creatinine >2.0 mg/dL, I suspect this to be more cardiorenal syndrome rather than sepsis-induced. - Sepsis order set was initiated - Initial Lactate was 1.6 - Blood cultures drawn before antibiotics were given - 11/27 positive for Streptococcus Agalactiae Group B - Broad spectrum antibiotics started: Ceftriaxone + Doxycycline - switched to Vancomycin + Piperacillin-Tazobactam - Transitioned to ampicillin-sulbactam (renally dosed) - 30 mL/kg of IV fluids was not administered given SBP > 90, MAP > 65, lactic acid < 4, and concern for volume overload due to CHF - CT chest (05/01) = "significant bilateral lower lobe infection or aspiration pneumonia. 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 left ventricular hypertrophy. aortic sclerosis. diastolic dysfunction." - Continue home meds as tolerated - NT-Pro BNP = 7,390 - Daily weights - Strict I/O # KDIGO Stage II Acute Kidney Injury - (resolved) - Creatinine = 2.31 -> 2.47 -> 2.66 -> 1.27 (was 1.21 on 03/02/2020) - Urinalysis = 1+ protein - Monitor creatinine and urine output - If worsening, obtain renal ultrasound - Renally dose medications Naldo Mcgee M.D.
[2022-05-08] MEDS ORDERED: MORPHINE 2 MG/ML SYR IV ONE (20:34)
[2022-05-08 22:16] VITALS: O2SAT 98
[2022-05-09] MEDS ORDERED: MORPHINE 2 MG/ML SYR IV ONE (01:03)
[2022-05-09] MEDS ORDERED: AMIODARONE IN DEXTROSE,ISO-OSM 360 MG/200 ML BAG IV ONE (01:38)
[2022-05-09] MEDS: METOPROLOL TARTRATE 5 MG/5 ML INJ IV SCH ×2 (02:01→06:48)
[2022-05-09] MEDS: AMPICILLIN/SULBACT 3 GM in NA CHLORIDE 0.9% 100 ML IVPB SCH (03:19)
[2022-05-09 03:42] LABS: Absolute Lymphocytes (CBC) 0.7 K/uL (0.7-4.9); Hematocrit 21.5 % (39.6-49.0); Lymphocytes % 3.5 % (15.3-44.8); MCV 82.2 fL (80-100); MPV 8.6 fL (7.6-11.3); RBC Red Blood Cell Count 2.62 M/uL (4.33-5.43)
[2022-05-09 03:59] LABS: Albumin 1.6 g/dL (3.4-5.0); Phosphorus 2.5 mg/dL (2.5-4.9); Potassium 3.3 mmol/L (3.5-5.1)
[2022-05-09] MEDS ORDERED: PANTOPRAZOLE INJ 80 MG in NA CHLORIDE 0.9% 250 ML IV SCH ×2 (04:00→14:00)
[2022-05-09] MEDS ORDERED: NA CHLORIDE 0.9% 250 ML IV SCH (05:00)
[2022-05-09] MEDS ORDERED: NA CHLORIDE 0.9% 250 ML ONE (06:29)
[2022-05-09] MEDS: AMIODARONE HCL 900 MG in Dextrose 5%-Water 482 ML IV SCH (08:50)
--- NOTE | 2022-05-09 10:15 | RAD REPORT ---
EXAM DESCRIPTION: CT - Soft Tissue Neck W/Contr - 05/09/2022 6:46 am CLINICAL HISTORY: 86 years Male status post retrieval of dentures from oropharynx with subsequent bl eeding; R/O venous bleeding. TECHNIQUE: Axial CT imaging of the soft tissues of the neck were performed following the administrat ion of intravenous contrast. followed by sagittal and coronal reconstructed images. The CT study is p erformed according to ALARA (as low as reasonably achievable) or ALARA/IMAGE GENTLY, with automatic a djustment of mA and/or kV according to patient size. Performed on: 05/09/2022 at 5:31 AM Comparisons: None. FINDINGS: The visualized portions of the brain and orbits are normal. The oral cavity, oropharynx and nasopharynx are normal. Some portions of the oral cavity and orophary nx are obscured by streak artifact related to the patient's dental hardware. The parapharyngeal fa t planes are preserved. A nasogastric tube is present. The hypopharynx is unremarkable. The epiglottis and aryepiglottic folds are normal. The vallecula and pyriform sinuses are grossly nor mal. The preepiglottic fat is preserved. The thyroid, cricoid and arytenoid cartilages are normal. The region of the false and true vocal cords is normal as is the anterior commissure. The parotid and submandibular glands are grossly within normal limits. No intrinsic mass lesions are seen. . The carotid sheaths are normal bilaterally. There is very mild mucosal thickening of the left maxillary sinus. Mastoid air cells and middle ear c avities are grossly clear. No definite pathologically enlarged lymph nodes are identified The thyroid gland is normal in size and configuration. There is a 1 cm nonenhancing nodule along the inferolateral aspect of the left thyroid lobe. No follow-up imaging is recommended. The thoracic inlet is normal. The superior mediastinum and lung apices are normal. No acute osseous abnormalities are identified. There are mild degenerative changes along the cervical spine. There is scattered periodontal disease. No focal soft tissue abnormalities are seen. No definite active extravasation of contrast is apprecia antoine on this examination to suggest active bleeding. IMPRESSION: 1. No evidence of acute abnormality involving the soft tissues of the neck. 2. No definite active extravasation of contrast is appreciated on this examination to suggest activ e bleeding. 3. Mild mucosal thickening of the left maxillary sinus. 4. Mild degenerative changes along the cervical spine. 5. Scattered periodontal disease. Electronically signed by: Cally Samuels DO 05/09/2022 6:07 AM CDT Due to temporary technical issues with the PACS/Fluency reporting system, reports are being signed by the in house radiologists without review as a courtesy to insure prompt reporting. The interpreting radiologist is fully responsible for the content of the report.
--- NOTE | 2022-05-09 10:18 | RAD REPORT ---
EXAM DESCRIPTION: CT - Chest Abdomen W Con - 05/09/2022 6:45 am CLINICAL HISTORY: R/O VENOUS BLEEDING COMPARISON: 05/08/2022. TECHNIQUE: CT CHEST ABDOMEN PELVIS WITH IV CONTRAST on 05/09/2022 12:00 AM CDT. MIPS reconstructions were generated. This exam was performed according to our departmental dose-optimization program, which includes autom ated exposure control, adjustment of the mA and/or kV according to patient size and/or use of iterati ve reconstruction technique. FINDINGS: Vascular: Thoracic aorta is normal in course and caliber without aneurysm or dissection. P ulmonary arteries are adequately opacified without acute or chronic filling defects. Abdominal aorta is normal in course and caliber without aneurysm. Pelvic arteries are patent without aneurysm or occl usion. Chest: The heart is enlarged. There is no pericardial effusion. Intrathoracic lymph nodes are not enl arged. The right PICC line tip is in the lower SVC. NG tube tip is in the stomach. There is small bilateral pleural effusions. Central airways are patent. There is extensive airspace d isease throughout the mid and lower lungs bilaterally. Abdomen: The liver is normal in appearance. There is no biliary dilatation. Gallbladder is normally d istended. There is mild thickening of much of the duodenum. Previously seen contrast in the duodenum is no longer present. There is a crescentic collection of fluid and air lateral to the descending por tion of the duodenum measuring 6.8 x 3.6 cm. There is no contrast within the collection. Spleen is no rmal in size. Pancreas is mildly atrophic. Adrenal glands are normal. Kidneys are mildly atrophic. Lo wer pole left renal cyst measures 5.3 cm with an upper pole right renal cyst measuring 2.8 cm. There is no free air. There is no retroperitoneal adenopathy. Skeleton: There are no acute osseous findings. No suspicious bony lesions. IMPRESSION: Redemonstration of collection of fluid and air adjacent to the descending duodenum, poss ibly slightly increased in size. Although no contrast is seen within the collection, and duodenal per foration is not excluded. Extensive bibasilar pneumonia. Venous opacification of the upper abdominal structures is suboptimal and any potential venous hemorrh age is difficult to detect. Electronically signed by: David Restrepo MD 05/09/2022 6:02 AM CDT Due to temporary technical issues with the PACS/Fluency reporting system, reports are being signed by the in house radiologists without review as a courtesy to insure prompt reporting. The interpreting radiologist is fully responsible for the content of the report.
[2022-05-09 11:54] VITALS: BP 117/43; TEMP 96.7
--- NOTE | 2022-05-09 12:23 | P.DS ---
Admission Date: 04/27/22 Discharge Date: 05/09/22 Disposition: TRANSFER TO [facility] Comment: [facility] Discharge Condition: FAIR Reason for Admission: CHF Exacerbation Consultations: 1. Cardiology 2. General Surgery 3. Gastroenterology 4. Nephrology Hospital Course: DIAGNOSES: # Acute Blood Loss Anemia suspect secondary to Acute Descending Duodenal Perforation # Dysphagia /Odynophagia secondary to Ingested Partial Denture s/p Removal # Acute Hypoxemic Respiratory Failure - likely secondary to Aspiration Pneumonia # Sepsis likely secondary to Aspiration Pneumonia with Group B Streptococcus Agalactiae Bacteremia # Acute on Chronic Decompensated Congestive Heart Failure with Unknown Ejection Fraction (improved) # Atrial Fibrillation with Rapid Ventricular Response (resolved) # Hypertension # KDIGO Stage II Acute Kidney Injury - (resolved) HOSPITAL COURSE: Mr. Ander Del Rosario is a pleasant 86-year-old male who has a past medical history of hypertension who was admitted to the [facility] on 04/27/2022 for shortness of breath. He was admitted to the Medicine service. Upon further evaluation, he was found to have acute hypoxemic respiratory failure secondary to bilateral aspiration pneumonia as well as a congestive heart failure exacerbation. He was treated with IV antibiotics and diuretics. His presentation was complicated by a stage II kidney injury, which was suspect to be cardiorenal syndrome. Over his hospitalization, his renal function improved with treatment and his blood cultures returned positive for Group B Strepococcus Agalactiae. On 04/30/2022, he began experiencing abdominal pain. A CT abdomen/pelvis was obtained, which revealed, "wall thickening of the second portion of the duodenum with extraluminal air and inflammatory changes. This may indicate a perforated ulcer or perforated mass. Cholelithiasis is suspected. Bilateral pulmonary opacities may indicate pneumonia." A repeat CT abdomen/pelvis on 05/01/2022 revealed, " extraluminal air and soft tissue stranding adjacent to the duodenal C-loop has not changed since prior day imaging. No new or suspicious finding." A repeat abdominal x-ray on 05/02/2022 revealed, "nonobstructive bowel gas pattern. [place] of free air lateral to the duodenum is grossly similar." At this point, a swallow study was attempted; however, he immediately aspirated and the test was terminated early. Due to significant nutirtional concerns, he has been on parenteral nutrition since 05/02/2022. On 05/04/2022, he developed atrial fibrillation with rapid ventricular response, for which Cardiology was consulted. He was started on an amiodarone drip per Cardiology and has remained on the drip due to an inability to tolerate PO. Since then, he had remained relatively stable, and on 05/08/2022, General Surgery requested a repeat swallow study. During the swallow study, he endorses significant odynophagia, so a CT neck was obtained. CT neck revealed that "patient has swallowed a partial denture with the U shaped device straddling the epiglottis." Emergency Medicine (Dr. Jacinto) was called, who was able to retrieve the device with a glidescope and forceps. The swallow study was completed and an NG tube was placed. Around 03:30 AM this morning, I was notified of significant bloody output from his NG tube. He reported worsening abdominal pain and distention. A CT abdomen/pelvis was obtained, which revealed, "redemonstration of collection of fluid and air adjacent to the descending duodenum, possibly slightly increased in size. Although no contrast is seen within the collection, and duodenal perforation is not excluded. Extensive bibasilar pneumonia. Venous opacification of the upper abdominal structures is suboptimal and any potential venous hemorrhage is difficult to detect." I spoke with our General Surgeon, who recommended that he be transferred to a higher level of care for hepatobiliary surgery. He is currently hemodynamically stable, and has received 2 units pRBCs. His hemoglobin was 7.3 this morning prior to transfusion. Transfer was initiated and doc-to-doc was completed with [facility] Surgery attending, Dr. Selene Colbert, who has generously accepted to consult on his case. He was accepted by Dr. Naldo Soto as primary at [facility] ICU. On 05/09/2022, he was seen on morning rounds and his condition is guarded. He is currently stable for transfer. He and his family members were given the opportunity to ask questions and reported no further questions. Furthermore, all questions were answered to the best of my ability. Today, I personally spent 45 minutes on his case, of which greater than 50% of the time was spent in patient education, counseling, and coordination of care as described above. - Physical Exam General: Alert, In no apparent distress, Oriented x3, hoarse voice with audible gurgling Neck: Supple, JVD not distended Respiratory: Faint rhonchi/gurgles Cardiovascular: trace bilateral lower extremity pitting edema, Regular rate/rhythm, Normal S1 S2, No gallops, No rubs, No murmurs Gastrointestinal: Hypoactive bowel sounds, Soft and benign, Distended, Mild generalized tenderness, No rebound, No guarding Musculoskeletal: No clubbing Integumentary: No rashes Neurological: Normal gait, Normal strength at 5/5 x4 extr, Cranial nerves 3-12 intact Vital Signs/Physical Exam: Temp Pulse Resp BP Pulse Ox 96.7 F L 69 18 117/43 L 100 05/09/22 11:51 05/09/22 11:51 05/09/22 11:51 05/09/22 11:51 05/09/22 11:51 Laboratory Data at Discharge: WBC 18.80 K/uL (4.3-10.9) H D 05/09/22 03:35 Hgb 7.3 g/dL (13.6-17.9) L 05/09/22 03:35 Hct 21.5 % (39.6-49.0) L 05/09/22 03:35 Plt Count 171 K/uL (152-406) D 05/09/22 03:35 PT 14.5 SECONDS (9.5-12.5) H 04/27/22 12:10 INR 1.31 04/27/22 12:10 APTT 30.3 SECONDS (24.3-36.9) 04/27/22 12:10 Sodium 142 mmol/L (136-145) 05/09/22 03:35 Potassium 3.3 mmol/L (3.5-5.1) L 05/09/22 03:35 BUN 56 mg/dL (7-18) H 05/09/22 03:35 Creatinine 1.62 mg/dL (0.55-1.3) H 05/09/22 03:35 Glucose 153 mg/dL (74-106) H 05/09/22 03:35 Phosphorus 2.5 mg/dL (2.5-4.9) D 05/09/22 03:35 Magnesium 2.0 mg/dL (1.8-2.4) 05/09/22 03:35 Total Bilirubin 0.7 mg/dL (0.2-1.0) 05/07/22 06:45 AST 22 U/L (15-37) 05/07/22 06:45 ALT 20 U/L (12-78) 05/07/22 06:45 Alkaline Phosphatase 53 U/L (45-117) 05/07/22 06:45 Home Medications: Atorvastatin Calcium 40 mg PO DAILY 04/30/22 Carvedilol [Coreg] 50 mg PO BID 04/30/22 Cyanocobalamin [Vitamin B-12*] 1,000 mcg PO DAILY 04/30/22 Furosemide 60 mg PO DAILY 04/30/22 Losartan Potassium 150 mg PO DAILY 04/30/22 Spironolactone 50 mg PO DAILY 04/30/22 Albuterol Neb [Proventil 0.083% Neb Soln] 2.5 mg NEB [id number] PRN amp 05/09/22 Benzonatate [Tessalon Perle*] 100 mg PO Q6H PRN cap 05/09/22 Ipratropium Neb [Atrovent*] 0.5 mg NEB [id number] PRN amp 05/09/22 Diet: NPO Activity: Bedrest Followup: NONE,NONE [Primary Care Provider] -
[2022-05-09] MEDS ORDERED: VANCOMYCIN 1 GM in NA CHLORIDE 0.9% 250 ML IVPB SCH (13:00)
[2022-05-09] MEDS ORDERED: VANCOMYCIN 2 GM in NA CHLORIDE 0.9% 500 ML IVPB ONE (13:00)
--- NOTE | 2022-05-09 17:39 | PN ---
Date of Progress Note: 05/09/2022 Subjective: The patient was admitted with acute kidney injury, duodenitis. The patient had choke wi th his denture yesterday. The patient had a drop in his hemoglobin and plan for transfusion today. Physical Examination: Vital Signs: Blood pressure 117/43, pulse of 69, afebrile. Chest: Decreased entry bilateral base. Heart: S1, S2. Systolic murmur. Abdomen: Soft, nontender. Extremity: No edema. Neuro: Confused. No focality. Laboratory Data: WBC 18.8, H and H 7.3/21.5. Sodium 142, potassium 3.3, bicarb 25, BUN 56, creatini ne 1.6, calcium 7.2, phosphorus 2.5, magnesium 2, albumin 1.6, corrected calcium is 9.2. Current Medications: The patient on include; 1.Zosyn. 2.Amiodarone. 3.Metoprolol. 4.TPN. Assessment And Plan: 1.Acute kidney injury secondary to prerenal, poor perfusion ATN, superimposed with contrast-induced nephropathy. The patient received IV contrast yesterday with CT. I am going to continue hydration f or the patient and we will monitor the patient closely. 2.Hypertension, currently blood pressure on the lower side. Hold all blood pressure medications, ex cept beta-linnea for rate control. 3.Hypokalemia. We will supplement cautiously. 4.Anemia secondary to GI loss. The patient is going to receive transfusion. We will follow up. 5.Duodenitis as by primary. 6.Aspiration pneumonia. Continue current antibiotic. We will follow up. LUCY Voice ID: [id number] Report ID: [id number]
[2022-05-11] MEDS ORDERED: VANCOMYCIN 1.5 GM in NA CHLORIDE 0.9% 500 ML IVPB SCH (01:00)
== END 2022-05-09 14:40 | disposition short-term general hospital (02) | DRG 853 ==
LOC: ER 11:26 → ERHOLD 13:29 → OBSVTOIN 16:36 → 4TH 04-28 00:20
PROVIDERS: ADMIT Internal Medicine; ATTEND Internal Medicine
PROC: 02HV33Z Insertion of Infusion Device into Superior Vena Cava, Percutaneous Approach (ICD-10-PCS; 2022-05-08)
PROC: 3E0436Z Introduction of Nutritional Substance into Central Vein, Percutaneous Approach (ICD-10-PCS; 2022-05-08)
PROC: 0CC Mouth and Throat, Extirpation (ICD-10-PCS; principal; 2022-05-09)
PROC: 30233N1 Transfusion of Nonautologous Red Blood Cells into Peripheral Vein, Percutaneous Approach (ICD-10-PCS; 2022-05-09)
DX: A40.1 Sepsis due to streptococcus, group B (principal); J96.01 Acute respiratory failure with hypoxia; N17.0 Acute kidney failure with tubular necrosis; J69.0 Pneumonitis due to inhalation of food and vomit; K26.5 Chronic or unspecified duodenal ulcer with perforation; I50.33 Acute on chronic diastolic (congestive) heart failure; E44.0 Moderate protein-calorie malnutrition; E87.3 Alkalosis; D62 Acute posthemorrhagic anemia; N18.4 Chronic kidney disease, stage 4 (severe); I13.0 Hypertensive heart and chronic kidney disease with heart failure and stage 1 through stage 4 chronic kidney disease, or unspecified chronic kidney disease; D61.818 Other pancytopenia; E87.0 Hyperosmolality and hypernatremia; T17.398A Other foreign object in larynx causing other injury, initial encounter; I48.91 Unspecified atrial fibrillation; E78.5 Hyperlipidemia, unspecified; E87.6 Hypokalemia; E83.52 Hypercalcemia; R53.1 Weakness; R62.7 Adult failure to thrive; R13.10 Dysphagia, unspecified; D35.02 Benign neoplasm of left adrenal gland; Z68.28 Body mass index [BMI] 28.0-28.9, adult; Z20.822 Contact with and (suspected) exposure to COVID-19
CPT/HCPCS: 36415; 36569; 70490; 70491; 71045; 71250; 71260; 74018; 74019; 74150; 74160; 74176; 74240; 76770; 80048; 80053; 80069; 80076; 81001; 81003; 82271; 82570; 82805; 82947; 83605; 83735; 83880; 83986; 84100; 84145; 84156; 84484; 85025; 85610; 85730; 86334; 86850; 86900; 86901; 87040; 87077; 87186; 87205; 92610; 93005; 93306; 94010; 94640; 94660; 94760; 96374; 97110; 97116; 97161; 97165; 97530; 99285; C9113; G0378; J0282; J0295; J1940; J2270; J2543; J2920; J3370; J3480; J7040; J7050; J7060; J7120; J7614; J7799; P9016; Q0163; Q9967; U0003

== ENCOUNTER 2022-06-13 00:33 | Inpatient (IN) | payer OTHER ==
[2022-06-13] MEDS ORDERED: MORPHINE 2 MG/ML SYR IV PRN (12:09)
[2022-06-13] MEDS ORDERED: ACETAMINOPHEN 500 MG TAB PO PRN (12:09)
[2022-06-13] MEDS ORDERED: ONDANSETRON 4 MG/2 ML VIAL IV PRN (12:09)
[2022-06-13] MEDS ORDERED: ALBUTEROL 2.5 MG/3 ML NEB SOL IH PRN ×2 (12:21→14:00)
[2022-06-13] MEDS ORDERED: ACETYLCYST 20% 4 ML VIAL IH PRN (12:21)
[2022-06-13] MEDS ORDERED: SIMETHICONE 80 MG TAB PO PRN (12:21)
[2022-06-13] MEDS: NA CHLORIDE 0.9% 1,000 ML IV SCH ×2 (12:36→22:17)
[2022-06-13 12:38] LABS: Hematocrit 24.4 % (39.6-49.0); Lymphocytes % 13.9 % (15.3-44.8); MCV 87.1 fL (80-100); MPV 7.1 fL (7.6-11.3)
[2022-06-13 13:03] LABS: Albumin 2.1 g/dL (3.4-5.0); Bilirubin Total 0.5 mg/dL (0.2-1.0); Magnesium 1.9 mg/dL (1.8-2.4); Phosphorus 2.2 mg/dL (2.5-4.9); Potassium 4.5 mmol/L (3.5-5.1); Protein, Total 5.9 g/dL (6.4-8.2)
[2022-06-13 13:20] LABS: Folic Acid, (Folate) 12.9 ng/mL (3.1-17.5)
[2022-06-13] MEDS: METOCLOPRAMIDE 5 MG TAB PO SCH ×2 (13:40→20:18)
[2022-06-13] MEDS: HYDRALAZINE HCL 25 MG TABLET PO SCH ×2 (13:41→20:17)
[2022-06-13] MEDS: carvediloL 12.5 MG TAB PO SCH (20:17)
[2022-06-13] MEDS: LACTOBACILLUS/ACIDOPHILUS TAB PO SCH (20:17)
[2022-06-13] MEDS: PANTOPRAZOLE 40MG TABLET PO SCH (20:18)
[2022-06-14] MEDS: NA CHLORIDE 0.9% 1,000 ML IV SCH (02:20)
[2022-06-14 06:15] LABS: Absolute Lymphocytes (CBC) 1.1 K/uL (0.7-4.9); Hematocrit 21.8 % (39.6-49.0); Lymphocytes % 20.1 % (15.3-44.8); MCV 87.8 fL (80-100); MPV 7.3 fL (7.6-11.3); RBC Red Blood Cell Count 2.48 M/uL (4.33-5.43)
[2022-06-14 06:31] LABS: Bilirubin Total 0.4 mg/dL (0.2-1.0); Protein, Total 5.7 g/dL (6.4-8.2)
[2022-06-14] MEDS: PANTOPRAZOLE 40MG TABLET PO SCH ×2 (07:47→20:41)
[2022-06-14] MEDS: METOCLOPRAMIDE 5 MG TAB PO SCH ×3 (07:47→20:41)
[2022-06-14] MEDS: HYDRALAZINE HCL 25 MG TABLET PO SCH ×3 (07:47→20:40)
[2022-06-14] MEDS: carvediloL 12.5 MG TAB PO SCH ×2 (07:48→20:40)
[2022-06-14] MEDS: FUROSEMIDE 40 MG TABLET PO SCH (07:48)
[2022-06-14] MEDS: LACTOBACILLUS/ACIDOPHILUS TAB PO SCH ×2 (07:49→20:41)
--- NOTE | 2022-06-14 09:38 | P.HP ---
Certification for Inpatient Patient admitted to: Inpatient With expected LOS: >2 Midnights Patient will require the following post-hospital care: None Practitioner: I am a practitioner with admitting privileges, knowledge of patient current condition, hospital course, and medical plan of care. Services: Services provided to patient in accordance with Admission requirements found in Title 42 Section 412.3 of the Code of Federal Regulations Patient History Date of Service: 06/13/22 Reason for admission: Transferred back care from [facility] per return agreement History of Present Illness: Patient is an 86-year-old gentleman who was originally admitted to our hospital in early April with a perforated duodenal ulcer. This was contained. However, patient developed GI bleed and was transferred to [facility] in [facility]. Patient was treated conservatively. Patient did have PEG tube placed. There was some bleeding from the PEG tube site. Gastroenterology at [facility] and general surgery did not feel this was a GI bleed. Patient's hemoglobin dropped down to 6.8 after unit of packed red blood cells and went up to 7.6. Patient's hemoglobin has been stable since that time. Patient is doing well with physical therapy. We are working on long term facility placement. Allergies No Known Allergies Allergy (Verified 04/28/22 00:44) Home Medications: Acetylcyst 20% Resp [Mucomyst 20% (FOR RESPIRATORY)] 4 ml IH BID 06/13/22 Albuterol Neb [Proventil 0.083% Neb Soln] 2.5 mg IH BID 06/13/22 Carvedilol [Coreg] 12.5 mg PO BID 06/13/22 Furosemide [Lasix] 40 mg PO DAILY 06/13/22 Hydralazine HCl 100 mg PO TID 06/13/22 Insulin Regular, Human [Novolin R] See Protocol SQ ACHS 06/13/22 Lactobacillus Acidophilus [Acidophilus Lactobacilli] 1 each PO DAILY 06/13/22 Metoclopramide HCl [Reglan] 10 mg PO TID 06/13/22 Pantoprazole Sodium [Protonix] 40 mg PO BID 06/13/22 Simethicone 80 mg PO Q6H 06/13/22 Sodium Chloride 3% Inhalation [Hypertonic Saline (3%) Neb] 4 ml IH BID 06/13/22 - Past Medical/Surgical History Has patient received pneumonia vaccine in the past: Yes -: Congestive heart failure -: Hypertension -: pneumonia -: Duodenal ulcer -: PEG tube placement Psychosocial/ Personal History: Patient lives at home alone - Family History Father Family History: Reviewed- Non-Contributory - Social History Smoking Status: Former smoker Alcohol use: No CD- Drugs: No Caffeine use: No Review of Systems 10-point ROS is otherwise unremarkable Physical Examination - Vital Signs Temperature: 97.5 F Blood Pressure: 147/40 Pulse: 67 Respirations: 16 Pulse Ox (%): 96 - Physical Exam General: Alert, In no apparent distress, Oriented x3 HEENT: Atraumatic, PERRLA, Mucous membr. moist/pink, EOMI, Sclerae nonicteric Neck: Supple, 2+ carotid pulse no bruit, No LAD, Without JVD or thyroid abnormality Respiratory: Clear to auscultation bilaterally, Normal air movement Cardiovascular: Regular rate/rhythm, Normal S1 S2, Systolic murmur (She gets) Gastrointestinal: Normal bowel sounds, No tenderness, Other (PEG tube placement patient is wanting signs with) Musculoskeletal: No tenderness Integumentary: No rashes Neurological: Normal gait, Normal speech, Normal tone, Sensation intact, Cranial nerves 3-12 intact, Normal affect, Abnormal strength Lymphatics: No axilla or inguinal lymphadenopathy - Studies Laboratory Data (last 24 hrs) 06/14/22 06:00: Sodium 139, Potassium 4.0, BUN 22 H, Creatinine 1.15, Glucose 93, Total Bilirubin 0.4, AST 12 L, ALT 14, Alkaline Phosphatase 91 06/14/22 06:00: WBC 5.30, Hgb 7.3 L D, Hct 21.8 L, Plt Count 139 L 06/13/22 12:27: Sodium 137, Potassium 4.5, BUN 22 H, Creatinine 1.21, Glucose 112 H, Phosphorus 2.2 L, Magnesium 1.9, Total Bilirubin 0.5, AST 15, ALT 15, Alkaline Phosphatase 98 06/13/22 12:27: WBC 7.10, Hgb 8.3 L, Hct 24.4 L, Plt Count 160 Assessment & Plan - Problems (Diagnosis) (1) CRITICAL CARE MYOPATHY Current Visit: Yes Status: Acute (2) Acute blood loss anemia Current Visit: Yes Status: Acute (3) Acute on chronic renal failure Current Visit: No Status: Acute (4) Atrial fibrillation Current Visit: No Status: Acute (5) Diastolic heart failure Current Visit: No Status: Acute (6) Duodenal perforation Current Visit: No Status: Acute - Plan Plan: 1. Monitor H&H 2. Physical therapy 3. Rehab or long term facility placement 4. Continue monitoring renal function 5. Continue with cardiac meds 6. Continue with Protonix twice a day 7. Hold off on anticoagulation 8. GI DVT prophylaxis Discharge Plan: Home Plan to discharge in: Greater than 2 days - Advance Directives Does patient have a Living Will: No Does patient have a Durable POA for Healthcare: No - Code Status/Comfort Care Code Status Assessed: Yes Code Status: Full Code Critical Care: No Time Spent Managing PTS Care (In Minutes): 45
--- NOTE | 2022-06-14 09:55 | P.PN ---
Subjective Date of Service: 06/14/22 Subjective: No new changes, No C/O voiced, Improving Review of Systems 10-point ROS is otherwise unremarkable Physical Examination - Vital Signs Temperature: 97.5 F Blood Pressure: 147/40 Pulse: 67 Respirations: 16 Pulse Ox (%): 96 - Physical Exam General: Alert, In no apparent distress, Oriented x3 Respiratory: Clear to auscultation bilaterally, Normal air movement Cardiovascular: Regular rate/rhythm, Normal S1 S2, No murmurs Gastrointestinal: Normal bowel sounds, Soft and benign, Non-distended, No tenderness, Other (PEG tube placement) Musculoskeletal: No clubbing, No swelling, No tenderness Neurological: Sensation intact, Cranial nerves 3-12 intact - Studies Laboratory Data (last 24 hrs) 06/14/22 06:00: Sodium 139, Potassium 4.0, BUN 22 H, Creatinine 1.15, Glucose 93, Total Bilirubin 0.4, AST 12 L, ALT 14, Alkaline Phosphatase 91 06/14/22 06:00: WBC 5.30, Hgb 7.3 L D, Hct 21.8 L, Plt Count 139 L 06/13/22 12:27: Sodium 137, Potassium 4.5, BUN 22 H, Creatinine 1.21, Glucose 112 H, Phosphorus 2.2 L, Magnesium 1.9, Total Bilirubin 0.5, AST 15, ALT 15, Alkaline Phosphatase 98 06/13/22 12:27: WBC 7.10, Hgb 8.3 L, Hct 24.4 L, Plt Count 160 Medications List Reviewed: Yes Assessment & Plan - Problems (Diagnosis) (1) CRITICAL CARE MYOPATHY Current Visit: Yes Status: Acute (2) Acute blood loss anemia Current Visit: Yes Status: Acute (3) Acute on chronic renal failure Current Visit: No Status: Acute (4) Atrial fibrillation Current Visit: No Status: Acute (5) Diastolic heart failure Current Visit: No Status: Acute (6) Duodenal perforation Current Visit: No Status: Acute - Plan Plan: Plan of care as mentioned below: 1. Monitor H&H decreased. We will transfuse 1 unit of packed red blood cells 2. Physical therapy 3. Rehab or group home facility placement 4. Continue monitoring renal function 5. Continue with cardiac meds 6. Continue with Protonix twice a day 7. Hold off on anticoagulation 8. GI DVT prophylaxis Discharge Plan: Home Plan to discharge in: Greater than 2 days (Got a scratch on) - Advance Directives Does patient have a Living Will: No Does patient have a Durable POA for Healthcare: No - Code Status/Comfort Care Code Status: Full Code Critical Care: No Time Spent Managing PTS Care (In Minutes): 45
[2022-06-14] MEDS: SOD FERRIC GLUC COMPLX/SUCROSE 125 MG in NA CHLORIDE 0.9% 100 ML IV SCH (11:01)
[2022-06-14 11:21] LABS: Absolute Lymphocytes (CBC) 1.2 K/uL (0.7-4.9); Hematocrit 25.5 % (39.6-49.0); Lymphocytes % 18.2 % (15.3-44.8); MCV 88.2 fL (80-100); MPV 7.6 fL (7.6-11.3); RBC Red Blood Cell Count 2.89 M/uL (4.33-5.43)
[2022-06-14] MEDS ORDERED: FUROSEMIDE 20 MG/ 2ML VIAL IV ONE (17:00)
[2022-06-14] MEDS: ENSURE HIGH PROTEIN 237 ML CAN PO SCH (20:41)
[2022-06-15 06:35] LABS: Hematocrit 22.3 % (39.6-49.0); Lymphocytes % 20.6 % (15.3-44.8); MCV 88.6 fL (80-100); MPV 7.5 fL (7.6-11.3); RBC Red Blood Cell Count 2.51 M/uL (4.33-5.43)
[2022-06-15 06:55] LABS: Protime INR 1.15
[2022-06-15 06:59] LABS: Bilirubin Total 0.4 mg/dL (0.2-1.0); Magnesium 1.9 mg/dL (1.8-2.4); Phosphorus 2.9 mg/dL (2.5-4.9); Potassium 3.9 mmol/L (3.5-5.1); Protein, Total 5.8 g/dL (6.4-8.2)
[2022-06-15 07:43] LABS: Blood Morphology Comment NOT SEEN (NOT SEEN); Platelet Estimate ADEQ; White Blood Cell Scan OK (OK)
[2022-06-15] MEDS: LACTOBACILLUS/ACIDOPHILUS TAB PO SCH ×2 (07:59→20:23)
[2022-06-15] MEDS: carvediloL 12.5 MG TAB PO SCH ×2 (07:59→20:23)
[2022-06-15] MEDS: FUROSEMIDE 40 MG TABLET PO SCH (07:59)
[2022-06-15] MEDS: PANTOPRAZOLE 40MG TABLET PO SCH ×2 (07:59→20:23)
[2022-06-15] MEDS: METOCLOPRAMIDE 5 MG TAB PO SCH ×3 (07:59→20:23)
[2022-06-15] MEDS: ENSURE HIGH PROTEIN 237 ML CAN PO SCH ×3 (08:00→20:25)
[2022-06-15] MEDS: HYDRALAZINE HCL 25 MG TABLET PO SCH ×3 (08:00→20:23)
--- NOTE | 2022-06-15 08:30 | RAD REPORT ---
EXAM DESCRIPTION: RAD - Chest Single View - 06/15/2022 5:43 am CLINICAL HISTORY: pneumonia Chest pain. COMPARISON: Chest Single View dated 05/08/2022; Chest Single View dated 05/07/2022; Abdomen 1 View ([facility]) dated 05/07/2022; Chest Single View dated 05/05/2022; Chest Abdomen W Con dated 05/09/2022 FINDINGS: Portable technique limits examination quality. Moderate bilateral pulmonary opacities are noted most compatible with pneumonia and appearing mildly progressive since comparative study. The heart is moderately enlarged. No displaced fractures. IMPRESSION: Moderate bilateral pulmonary opacities most compatible with pneumonia. Findings appear m ildly progressive since comparative study.
[2022-06-15] MEDS: SOD FERRIC GLUC COMPLX/SUCROSE 125 MG in NA CHLORIDE 0.9% 100 ML IV SCH (08:54)
[2022-06-15] MEDS ORDERED: NA CHLORIDE 0.9% 250 ML ONE (10:04)
[2022-06-15] MEDS ORDERED: NA CHLORIDE 0.9% 100 ML IV ONE (12:54)
[2022-06-15] MEDS ORDERED: FUROSEMIDE 20 MG/ 2ML VIAL IV ONE (13:47)
[2022-06-15 18:30] LABS: Hematocrit 28.7 % (39.6-49.0)
[2022-06-16] MEDS: ENSURE HIGH PROTEIN 237 ML CAN PO SCH ×3 (09:00→21:17)
[2022-06-16] MEDS: SOD FERRIC GLUC COMPLX/SUCROSE 125 MG in NA CHLORIDE 0.9% 100 ML IV SCH (09:25)
[2022-06-16] MEDS: PANTOPRAZOLE 40MG TABLET PO SCH ×2 (09:25→21:16)
[2022-06-16] MEDS: HYDRALAZINE HCL 25 MG TABLET PO SCH ×3 (09:25→21:16)
[2022-06-16] MEDS: FUROSEMIDE 40 MG TABLET PO SCH (09:26)
[2022-06-16] MEDS: carvediloL 12.5 MG TAB PO SCH ×2 (09:26→21:16)
[2022-06-16] MEDS: LACTOBACILLUS/ACIDOPHILUS TAB PO SCH ×2 (09:26→21:16)
[2022-06-16] MEDS: METOCLOPRAMIDE 5 MG TAB PO SCH ×3 (09:26→21:16)
[2022-06-16] MEDS ORDERED: FUROSEMIDE 40 MG/4 ML VIAL IV ONE (20:50)
--- NOTE | 2022-06-16 20:53 | P.PN ---
Date of Service: 06/15/22 Subjective Patient will need blood transfusion. Will transfuse 2 units of packed red blood cells. Monitor H&H serially. Review of Systems 10-point ROS is otherwise unremarkable Physical Examination - Vital Signs Reviewed - Physical Exam General: Alert, In no apparent distress, Oriented x3 Respiratory: Clear to auscultation bilaterally, Normal air movement Cardiovascular: Regular rate/rhythm, Normal S1 S2, No murmurs Gastrointestinal: Normal bowel sounds, Soft and benign, Non-distended, No ten derness, Other (PEG tube placement) Musculoskeletal: No clubbing, No swelling, No tenderness Neurological: Sensation intact, Cranial nerves 3-12 intact Assessment & Plan - Problems (Diagnosis) (1) CRITICAL CARE MYOPATHY Current Visit: Yes Status: Acute (2) Acute blood loss anemia Current Visit: Yes Status: Acute (3) Acute on chronic renal failure Current Visit: No Status: Acute (4) Atrial fibrillation Current Visit: No Status: Acute (5) Diastolic heart failure Current Visit: No Status: Acute (6) Duodenal perforation Current Visit: No Status: Acute - Plan Plan: Plan of care as mentioned below: 1. We will transfuse 2 units of packed red blood cells 2. Physical therapy- out of bed and ambulate; attempt to get to inpatient rehab 3. Rehab or [facility] facility placement; pending 4. Continue monitoring renal function 5. Continue with cardiac meds 6. Continue with Protonix twice a day 7. Hold off on anticoagulation 8. GI DVT prophylaxis
--- NOTE | 2022-06-16 20:55 | P.PN ---
Date of Service: 06/16/22 Subjective patient continues to improve. Patient states he feels a little bit better but is feeling really weak. Chest x-ray does show bilateral infiltrates and I will diurese more extensively. Also will start on antibiotics at this time. Will try to diurese more aggressively. Long-term prognosis appears to be very poor. Will talk with his brother is as medical power of litigation attorney. Review of Systems 10-point ROS is otherwise unremarkable Physical Examination - Vital Signs Reviewed - Physical Exam General: Alert, In no apparent distress, Oriented x3 Respiratory: Basilar crackles Cardiovascular: Regular rate/rhythm, Normal S1 S2, No murmurs Gastrointestinal: Normal bowel sounds, Soft and benign, Non-distended, No tenderness, Other (PEG tube placement) Musculoskeletal: No clubbing, No swelling, No tenderness Neurological: Sensation intact, Cranial nerves 3-12 intact Assessment & Plan - Problems (Diagnosis) (1) CRITICAL CARE MYOPATHY Current Visit: Yes Status: Acute (2) Acute blood loss anemia Current Visit: Yes Status: Acute (3) Acute on chronic renal failure Current Visit: No Status: Acute (4) Atrial fibrillation Current Visit: No Status: Acute (5) Diastolic heart failure Current Visit: No Status: Acute (6) Duodenal perforation Current Visit: No Status: Acute - Plan Plan: Plan of care as mentioned below: 1. status post blood transfusion and will monitor H&H 2. Physical therapy- out of bed and ambulate; attempt to get to inpatient rehab 3. diuresing a little more aggressively today. IV Lasix x1 along with oral Lasix. 4. Continue monitoring renal function 5. Continue with cardiac meds 6. Continue with Protonix twice a day 7. Hold off on anticoagulation 8. GI DVT prophylaxis
[2022-06-17 06:10] LABS: Absolute Lymphocytes (CBC) 1.4 K/uL (0.7-4.9); Hematocrit 28.4 % (39.6-49.0); Lymphocytes % 24.7 % (15.3-44.8); MCV 87.8 fL (80-100); MPV 8.1 fL (7.6-11.3); RBC Red Blood Cell Count 3.23 M/uL (4.33-5.43)
[2022-06-17 06:29] LABS: Bilirubin Total 0.5 mg/dL (0.2-1.0); Magnesium 1.7 mg/dL (1.8-2.4); Potassium 3.5 mmol/L (3.5-5.1); Protein, Total 5.9 g/dL (6.4-8.2)
--- NOTE | 2022-06-17 07:43 | RAD REPORT ---
EXAM DESCRIPTION: RAD - Chest Single View - 06/17/2022 6:33 am CLINICAL HISTORY: pneumonia COMPARISON: Chest Single View dated 06/15/2022; Chest Single View dated 05/08/2022; Chest Single View dated 05/07/2022; Abdomen 1 View (KUB) dated 05/07/2022 FINDINGS: Lines: None. Lungs: Widespread bilateral pulmonary opacities probably not significantly changed taking into accoun t some differences in technique compared with 06/15/2022. Pleural: No significant pleural effusions or pneumothorax. Cardiac: Cardiomegaly. Mediastinum: Within normal limits. Bones: No acute fractures. Other: None IMPRESSION: Multifocal airspace disease bilaterally likely reflecting pneumonia and not significantl y changed since 06/15/2022.
[2022-06-17] MEDS ORDERED: ALBUMIN HUMAN 25% 12.5 GM, FUROSEMIDE 100 MG in NA CHLORIDE 0.9% 40 ML IV SCH (09:00)
[2022-06-17] MEDS: ENSURE HIGH PROTEIN 237 ML CAN PO SCH ×3 (09:00→23:08)
[2022-06-17] MEDS: METOCLOPRAMIDE 5 MG TAB PO SCH ×3 (09:18→21:05)
[2022-06-17] MEDS: FUROSEMIDE 40 MG TABLET PO SCH (09:18)
[2022-06-17] MEDS: LACTOBACILLUS/ACIDOPHILUS TAB PO SCH ×2 (09:18→21:05)
[2022-06-17] MEDS: carvediloL 12.5 MG TAB PO SCH ×2 (09:18→21:05)
[2022-06-17] MEDS: HYDRALAZINE HCL 25 MG TABLET PO SCH ×3 (09:18→21:05)
[2022-06-17] MEDS: SOD FERRIC GLUC COMPLX/SUCROSE 125 MG in NA CHLORIDE 0.9% 100 ML IV SCH (09:19)
[2022-06-17] MEDS: PANTOPRAZOLE 40MG TABLET PO SCH ×2 (09:19→21:05)
[2022-06-17 12:54] VITALS: BMI 25.9
--- NOTE | 2022-06-17 19:37 | P.PN ---
Date of Service: 06/17/22 Subjective Patient is clinically doing well. His respiratory status has improved. His strength is still severely diminished and will need to try to get him up out of bed and ambulating. He got out of bed yesterday and walked to the commode. He was fairly steady. He did not want to sit in the chair for prolonged period because he has a stage I/stage II sacral lesion. Patient's hemoglobin remained stable. Arranging for placement at [facility]. Patient should be stable for transfer once accepted. Patient will need to follow-up with his cardiology team at [facility] after his strength is improved. At this time, they do not want to do any further intervention unless he gets a little stronger. No significant abdominal pain. His abdomen is still mildly distended. PEG tube is not being used at this time. He is tolerating his diet. General surgery and gastroenterology okayed him ea ting at [facility] which she was doing 4 days prior to transfer. He is tolerating his meals although he is not eating a lot. Hemoglobin remained stable. Anticipate discharge once accepted to [facility]. Review of Systems 10-point ROS is otherwise unremarkable Physical Examination - Vital Signs Reviewed - Physical Exam General: Alert, In no apparent distress, Oriented x3 Respiratory: Basilar crackles Cardiovascular: Regular rate/rhythm, Normal S1 S2, No murmurs Gastrointestinal: Normal bowel sounds, Soft and benign, Non-distended, No tenderness, Other (PEG tube placement) Musculoskeletal: No clubbing, No swelling, No tenderness Neurological: Sensation intact, Cranial nerves 3-12 intact Assessment & Plan - Problems (Diagnosis) (1) CRITICAL CARE MYOPATHY Current Visit: Yes Status: Acute (2) Acute blood loss anemia Current Visit: Yes Status: Acute (3) Acute on chronic renal failure Current Visit: No Status: Acute (4) Atrial fibrillation Current Visit: No Status: Acute (5) Diastolic heart failure Current Visit: No Status: Acute (6) Duodenal perforation Current Visit: No Status: Acute - Plan Plan: Plan of care as mentioned below: 1. status post blood transfusion and will monitor H&H; hemoglobin remained stable 2. Physical therapy- out of bed and ambulate; attempt to get to [facility] facility at [facility] for continued rehab 3. diuresing a little more aggressively today. Continue with IV Lasix. Status post albumin and Lasix drip. 4. Continue monitoring renal function 5. Continue with cardiac meds; outpatient cardiology follow-up after he completes his course a [facility] facility. 6. Continue with Protonix twice a day 7. Hold off on anticoagulation 8. GI DVT prophylaxis
[2022-06-17] MEDS ORDERED: Magnesium Sulfate 2gm IVPB 2 G/50 ML BAG IV ONE (19:44)
[2022-06-17] MEDS ORDERED: POTASSIUM CL 40 MEQ in NA CHLORIDE 0.9% 500 ML IV SCH (20:00)
[2022-06-17] MEDS ORDERED: NA CHLORIDE 0.9% 500 ML ONE (21:41)
[2022-06-17] MEDS: KCL 20 MEQ/100 mL IVPB 20 MEQ/100 ML BAG IV SCH (23:10)
[2022-06-18] MEDS: KCL 20 MEQ/100 mL IVPB 20 MEQ/100 ML BAG IV SCH (01:17)
[2022-06-18] MEDS: HYDRALAZINE HCL 25 MG TABLET PO SCH ×3 (08:40→20:58)
[2022-06-18] MEDS: FUROSEMIDE 40 MG TABLET PO SCH (08:40)
[2022-06-18] MEDS: LACTOBACILLUS/ACIDOPHILUS TAB PO SCH ×2 (08:41→20:58)
[2022-06-18] MEDS: carvediloL 12.5 MG TAB PO SCH ×2 (08:41→20:57)
[2022-06-18] MEDS: SOD FERRIC GLUC COMPLX/SUCROSE 125 MG in NA CHLORIDE 0.9% 100 ML IV SCH (08:41)
[2022-06-18] MEDS: ENSURE HIGH PROTEIN 237 ML CAN PO SCH ×3 (08:41→20:59)
[2022-06-18] MEDS: METOCLOPRAMIDE 5 MG TAB PO SCH ×3 (08:41→20:59)
[2022-06-18] MEDS: PANTOPRAZOLE 40MG TABLET PO SCH ×2 (08:41→20:58)
--- NOTE | 2022-06-18 13:16 | P.PN ---
Subjective Date of Service: 06/18/22 Chief Complaint: Transferred back care from [facility] per return agreement No acute events overnight. He reports generalized weakness. He denies any other symptoms. Per top case assembler, [facility] declined transfer. contract manager currently working on placement to [facility]. Review of Systems 10-point ROS is otherwise unremarkable General: Weakness (generalized) Physical Examination - Vital Signs Temperature: 97.3 F Blood Pressure: 137/62 Pulse: 70 Respirations: 18 Pulse Ox (%): 96 - Physical Exam General: Alert, In no apparent distress, Oriented x3 HEENT: Atraumatic, PERRLA, Mucous membr. moist/pink, EOMI, Sclerae nonicteric Neck: Supple, JVD not distended Respiratory: Clear to auscultation bilaterally, Normal air movement Cardiovascular: No edema, Regular rate/rhythm, Normal S1 S2, No gallops, No rubs, No murmurs Capillary refill: <2 Seconds Gastrointestinal: Normal bowel sounds, Soft and benign, Non-distended, No tenderness, No rebound, No guarding Musculoskeletal: No clubbing Integumentary: No rashes Neurological: Normal speech, Cranial nerves 3-12 intact, Normal affect - Studies Medications List Reviewed: Yes Assessment And Plan - Plan # Critical Care Myopathy - Physical Therapy consulted - Appreciate Case Management assistance with placement # Acute Blood Loss Anemia with Concern for Acute Duodenal Perforation (resolved) - No current evidence of bleeding - Monitor H&H - Transfuse for Hgb < 7.0 - Continue iron supplementation # Recent Admission from Sepsis likely secondary to Aspiration Pneumonia with Group B Streptococcus Agalactiae Bacteremia - S/P antibiotics - Repeat BCx on 04/28/2022 = no growth to date # Acute on Chronic Decompensated Congestive Heart Failure with Preserved Ejection Fraction (improved) # Hypertension - Transthoracic echocardiogram = "mild aortic regurgitation, tricuspid regurgitation. left ventricular hypertrophy. aortic sclerosis. diastolic dysfunction." - Continue furosemide, carvedilol - NT-Pro BNP = 7,390 - Daily weights - Strict I/O # KDIGO Stage I Acute Kidney Injury - Creatinine = 1.51 (baseline ~1.1) - Urinalysis = 1+ protein - Monitor creatinine and urine output - If worsening, obtain renal ultrasound - Renally dose medications # Atrial Fibrillation - Continue carvedilol - Not on anticoagulation due to acute blood loss anemia # Hypertension - Continue home hydralazine Naldo Mcgee M.D. Discharge Plan: Transfer (SNF) Plan to discharge in: Greater than 2 days
[2022-06-18 20:48] VITALS: O2SAT 96
[2022-06-19 03:46] LABS: Absolute Lymphocytes (CBC) 1.5 K/uL (0.7-4.9); Hematocrit 29.2 % (39.6-49.0); Lymphocytes % 25.3 % (15.3-44.8); MCV 88.3 fL (80-100); MPV 8.2 fL (7.6-11.3); RBC Red Blood Cell Count 3.31 M/uL (4.33-5.43)
[2022-06-19 04:50] LABS: Blood Morphology Comment NOT SEEN (NOT SEEN); Platelet Estimate ADEQ
[2022-06-19] MEDS: ENSURE HIGH PROTEIN 237 ML CAN PO SCH ×2 (09:00→13:57)
[2022-06-19] MEDS: SOD FERRIC GLUC COMPLX/SUCROSE 125 MG in NA CHLORIDE 0.9% 100 ML IV SCH (09:09)
[2022-06-19] MEDS: FUROSEMIDE 40 MG TABLET PO SCH (09:09)
[2022-06-19] MEDS: HYDRALAZINE HCL 25 MG TABLET PO SCH ×2 (09:09→13:57)
[2022-06-19] MEDS: LACTOBACILLUS/ACIDOPHILUS TAB PO SCH (09:09)
[2022-06-19] MEDS: carvediloL 12.5 MG TAB PO SCH (09:09)
[2022-06-19] MEDS: PANTOPRAZOLE 40MG TABLET PO SCH (09:10)
[2022-06-19] MEDS: METOCLOPRAMIDE 5 MG TAB PO SCH ×2 (09:10→13:57)
[2022-06-19 12:27] VITALS: BP 173/53; TEMP 97.2
--- NOTE | 2022-06-19 12:53 | P.DS ---
Admission Date: 06/13/22 Discharge Date: 06/19/22 Disposition: TRANSFER TO [facility] Discharge Condition: FAIR Reason for Admission: Transferred back care from [facility] per return agreement Hospital Course: DIAGNOSES: # Critical Care Myopathy # Acute Blood Loss Anemia with Concern for Acute Duodenal Perforation (resolved) # Recent Admission from Sepsis likely secondary to Aspiration Pneumonia with Group B Streptococcus Agalactiae Bacteremia # Acute on Chronic Decompensated Congestive Heart Failure with Preserved Ejection Fraction (improved) # Hypertension # KDIGO Stage I Acute Kidney Injury # Atrial Fibrillation HOSPITAL COURSE: Mr. Ander Del Rosario is a pleasant 86-year-old male who has a past medical history of hypertension who was initially admitted to the [facility] on 04/27/2022 to 05/09/2022 for acute hypoxemic respiratory failure secondary to bilateral aspiration pneumonia as well as a congestive heart fail ure exacerbation. His initial hospital course was complicated by Group B Strepococcus Agalactiae bacteremia, atrial fibrillation with rapid ventricular response, and acute blood loss anemia thought to be secondary to a duodenal perforation. He was transferred to [facility] ICU for higher level of care. Upon arrival to [facility], he was treated conservatively, but had a PEG tube placed. Post-PEG tube placement, there was bleeding at the PEG tube site, but [facility] Gastroenterology and General Surgery did not feel that this was a gastrointestinal bleed. He had been doing well, but due to issues arranging placement, we were asked to admit him back to our hospital for disposition planning. He returned to our hospital on 06/13/2022. With the assistance of case management, he was accepted to [facility]. Doc-to-doc was completed with Dr. James, who has generously accepted him for transfer. On 06/19/2022, he was seen on morning rounds and deemed medically stable for transfer. He and his family members were given the opportunity to ask questions and reported no further questions. Furthermore, all questions were answered to the best of my ability. Today, I personally spent 40 minutes on his case, of which greater than 50% of the time was spent in patient education, counseling, and coordination of care as described above. - Physical Exam General: Alert, In no apparent distress, Oriented x3 HEENT: Atraumatic, PERRLA, Mucous membr. moist/pink, EOMI, Sclerae nonicteric Neck: Supple, JVD not distended Respiratory: Clear to auscultation bilaterally, Normal air movement Cardiovascular: No edema, Regular rate/rhythm, Normal S1 S2, No gallops, No rubs, No murmurs Capillary refill: <2 Seconds Gastrointestinal: PEG tube in place is clean, dry, and intact. Normal bowel sounds, Soft and benign, Non-distended, No tenderness, No rebound, No guarding Musculoskeletal: No clubbing Integumentary: No rashes Neurological: Normal speech, Cranial nerves 3-12 intact, Normal affect Vital Signs/Physical Exam: Temp Pulse Resp BP Pulse Ox 97.2 F 85 20 173/53 H 96 06/19/22 12:00 06/19/22 12:00 06/19/22 12:00 06/19/22 12:00 06/19/22 12:00 Laboratory Data at Discharge: WBC 5.80 K/uL (4.3-10.9) 06/19/22 03:19 Hgb 9.6 g/dL (13.6-17.9) L 06/19/22 03:19 Hct 29.2 % (39.6-49.0) L 06/19/22 03:19 Plt Count 138 K/uL (152-406) L 06/19/22 03:19 PT 12.6 SECONDS (9.5-12.5) H 06/15/22 06:22 INR 1.15 06/15/22 06:22 APTT 31.9 SECONDS (24.3-36.9) 06/15/22 06:22 Sodium 139 mmol/L (136-145) 06/19/22 03:19 Potassium 4.0 mmol/L (3.5-5.1) 06/19/22 03:19 BUN 36 mg/dL (7-18) H 06/19/22 03:19 Creatinine 1.54 mg/dL (0.55-1.3) H 06/19/22 03:19 Glucose 111 mg/dL (74-106) H 06/19/22 03:19 Phosphorus 2.9 mg/dL (2.5-4.9) 06/15/22 06:22 Magnesium 1.7 mg/dL (1.8-2.4) L 06/17/22 05:25 Total Bilirubin 0.5 mg/dL (0.2-1.0) 06/17/22 05:25 AST 12 U/L (15-37) L 06/17/22 05:25 ALT 13 U/L (12-78) 06/17/22 05:25 Alkaline Phosphatase 82 U/L (45-117) 06/17/22 05:25 Home Medications: Acetylcyst 20% Resp [Mucomyst 20% (FOR RESPIRATORY)*] 4 ml IH BID 06/13/22 Albuterol Neb [Proventil 0.083% Neb Soln] 2.5 mg IH BID 06/13/22 Carvedilol [Coreg] 12.5 mg PO BID 06/13/22 Furosemide [Lasix] 40 mg PO DAILY 06/13/22 Hydralazine HCl 100 mg PO TID 06/13/22 Insulin Regular, Human [Novolin R] See Protocol SQ ACHS 06/13/22 Lactobacillus Acidophilus [Acidophilus Lactobacilli] 1 each PO DAILY 06/13/22 Metoclopramide HCl [Reglan] 10 mg PO TID 06/13/22 Pantoprazole Sodium [Protonix] 40 mg PO BID 06/13/22 Simethicone 80 mg PO Q6H 06/13/22 Sodium Chloride 3% Inhalation [Hypertonic Saline (3%) Neb*] 4 ml IH BID 06/13/22 Diet: AHA Activity: Fall precautions Followup: Isrrael James MD [COURTESY - CAN ADMIT] - Time spent managing pt's care (in minutes): 40
== END 2022-06-19 15:47 | DRG 91 ==
LOC: 2ND 00:33 → UNDOADMIN 00:33 → 2ND 09:49
PROVIDERS: ADMIT Hospitalist; ATTEND Internal Medicine
PROC: 30233N1 Transfusion of Nonautologous Red Blood Cells into Peripheral Vein, Percutaneous Approach (ICD-10-PCS; principal; 2022-06-15)
DX: G72.81 Critical illness myopathy (principal); I50.31 Acute diastolic (congestive) heart failure; K26.1 Acute duodenal ulcer with perforation; I13.0 Hypertensive heart and chronic kidney disease with heart failure and stage 1 through stage 4 chronic kidney disease, or unspecified chronic kidney disease; D62 Acute posthemorrhagic anemia; N17.9 Acute kidney failure, unspecified; N18.9 Chronic kidney disease, unspecified; I08.2 Rheumatic disorders of both aortic and tricuspid valves; I48.91 Unspecified atrial fibrillation; Z60.2 Problems related to living alone; Z93.1 Gastrostomy status; Z79.4 Long term (current) use of insulin; Z87.891 Personal history of nicotine dependence; Z79.899 Other long term (current) drug therapy
CPT/HCPCS: 36415; 36430; 71045; 80048; 80053; 82607; 82746; 82947; 83540; 83735; 84100; 85014; 85018; 85025; 85044; 85610; 85730; 86850; 86900; 86901; 97116; 97161; 97530; J1940; J2916; J3475; J3480; J7030; J7040; J7050; P9016; P9047

== ENCOUNTER 2022-07-14 10:48 | Emergency (ER) | payer OTHER ==
[2022-07-14] MEDS ORDERED: ACETAMINOPHEN 500 MG TAB ONE (11:03)
--- NOTE | 2022-07-14 11:50 | RAD REPORT ---
EXAM DESCRIPTION: CT - Head C Spine Mpr Wo Con - 07/14/2022 11:18 am CLINICAL HISTORY: Head and neck injury status post fall. Head and neck pain COMPARISON: April 2022 TECHNIQUE: Computed axial tomography of the head and cervical spine was obtained. Sagittal and coronal reconstruction was performed. All CT scans are performed using dose optimization technique as appropriate and may include automated exposure control or mA/KV adjustment according to patient size. FINDINGS: Right frontal scalp/right preseptal swelling An intracranial bleed is not seen. The ventricles are normal in caliber. An extra-axial fluid collect ion is not noted.Fluid within the visualized sinuses and mastoids is not seen A cervical fracture is not visualized. No dislocation is noted. IMPRESSION: No acute intracranial abnormality is seen. A cervical fracture is not visualized. If the patient continues to have symptoms to suggest intracra nial /spinal cord pathology then MRI would be recommended
--- NOTE | 2022-07-14 12:11 | EDPHYS ---
Physician Documentation [facility] Name: Ander Del Rsoario Age: 86 yrs Sex: Male : 1935 Arrival Date: 07/14/2022 Time: 10:50 Bed 15 Private MD: ED Physician Ronak Castillo HPI: 07/14 12:11 This 86 yrs old Male presents to ER via EMS with complaints of Fall Injury. rt 12:11 Details of fall: The patient fell from an upright position, while walking. Onset: The rt symptoms/episode began/occurred this morning. Associated injuries: The patient sustained injury to the head. Severity of symptoms: At their worst the symptoms were mild. Patient sustained a trip and fall this morning, reportedly had a small laceration above the right eyebrow, treated with [facility]-Strips at the [facility]. Reported bruising to that area. Patient denies any pain at this time or other acute complaints. Denies loss of consciousness. . Historical: - Allergies: 10:56 No Known Allergies; db - Home Meds: 10:56 albuterol sulfate 2.5 mg /3 mL (0.083 %) Nebulizer nebu 2 times a day [Active]; db carvedilol 12.5 mg oral tab 1 tab 2 times per day [Active]; hydralazine 100 mg Oral tab 1 tab 3 times per day [Active]; hydrochlorothiazide 25 mg Oral tab once daily [Active]; lisinopril 20 mg Oral tab once daily [Active]; melatonin 3 mg Oral tab nightly [Active]; nystatin-triamcinolone powder Topical [Active]; quetiapine 25 mg oral tab 1 tab at bedtime [Active]; sertraline 50 mg oral tab 1 tab once daily [Active]; simethicone 80 mg Oral tab four times a day [Active]; acetaminophen 325 mg Oral cap 650 mg every 6 hours [Active]; - PMHx: 10:56 "leaky valve"; CHF; Hypertension; Pneumonia; Diabetes mellitus; Dementia; Chronic db systolic heart failure; Anxiety; pulmonary fibrosis; - Immunization history:: Client reports receiving the 2nd dose of the Covid vaccine. - Social history:: Smoking status: unknown. - Immunization history: Last tetanus immunization: - up to date. - Family history:: not pertinent. ROS: 12:11 Constitutional: Negative for fever, chills, and weight loss, ENT: Negative for injury, rt pain, and discharge, Neck: Negative for injury, pain, and swelling, Cardiovascular: Negative for chest pain, palpitations, and edema, Respiratory: Negative for shortness of breath, cough, wheezing, and pleuritic chest pain, Abdomen/GI: Negative for abdominal pain, nausea, vomiting, diarrhea, and constipation, Back: Negative for injury and pain, MS/Extremity: Negative for injury and deformity, Skin: Negative for injury, rash, and discoloration, Neuro: Negative for headache, weakness, numbness, tingling, and seizure, Psych: Negative for depression, anxiety, suicide ideation, homicidal ideation, and hallucinations. 12:11 Eyes: Positive for Bruising, denies vision loss. Exam: 12:11 Constitutional: This is a well developed, well nourished patient who is awake, alert, rt and in no acute distress. Neck: Trachea midline, no thyromegaly or masses palpated, and no cervical lymphadenopathy. Supple, full range of motion without nuchal rigidity, or vertebral point tenderness. No Meningismus. Chest/axilla: Normal chest wall appearance and motion. Nontender with no deformity. No lesions are appreciated. Cardiovascular: Regular rate and rhythm with a normal S1 and S2. No gallops, murmurs, or rubs. Normal PMI, no JVD. No pulse deficits. Respiratory: Lungs have equal breath sounds bilaterally, clear to auscultation and percussion. No rales, rhonchi or wheezes noted. No increased work of breathing, no retractions or nasal flaring. Abdomen/GI: Soft, non-tender, with normal bowel sounds. No distension or tympany. No guarding or rebound. No evidence of tenderness throughout. Skin: Warm, dry with normal turgor. Normal color with no rashes, no lesions, and no evidence of cellulitis. MS/ Extremity: Pulses equal, no cyanosis. Neurovascular intact. Full, normal range of motion. Neuro: Awake and alert, GCS 15, oriented to person, place, time, and situation. Cranial nerves II-XII grossly intact. Motor strength 5/5 in all extremities. Sensory grossly intact. Cerebellar exam normal. Normal gait. Psych: Awake, alert, with orientation to person, place and time. Behavior, mood, and affect are within normal limits. 12:11 Head/face: Using to the right supraorbital ridge, no other external evidence of trauma. 12:11 Eyes: conjunctiva normal, extraocular muscles intact. 12:11 Musculoskeletal/extremity: No tenderness, deformity to bilateral hip. Vital Signs: 10:50 BP 132 / 42; Pulse 70; Resp 20; Temp 98.4(O); Pulse Ox 98% ; Weight 90.72 kg; Height 5 db ft. 10 in. (177.80 cm); Pain 2/10; 11:24 BP 130 / 44; Pulse 70; Resp 19; Pulse Ox 98% ; ko1 12:13 BP 132 / 38; Pulse 67; Resp 21; Pulse Ox 99% on 2 lpm NC; ko1 10:50 Body Mass Index 28.70 (90.72 kg, 177.80 cm) db Lissett Coma Score: 10:50 Eye Response: spontaneous(4). Verbal Response: oriented(5). Motor Response: obeys db commands(6). Total: 15. Trauma Score (Adult): 10:50 Eye Response: spontaneous(1); Verbal Response: oriented(1); Motor Response: obeys db commands(2); Systolic BP: > 89 mm Hg(4); Respiratory Rate: 10 to 29 per min(4); Labolt Score: 15; Trauma Score: 12 MDM: 10:51 Patient medically screened. rt 12:11 Differential diagnosis: abrasion, closed head injury, contusion. Data reviewed: vital rt signs, nurses notes. ED course: Patient presents to the ED with head injury, CTs of the head and C-spine are unremarkable. There is no other external evidence of trauma including to the hips. He is up-to-date on his tetanus immunization, laceration was repaired prior to arrival. Patient is stable for outpatient care, return precautions discussed. 07/14 10:52 Order name: CT Head C Spine; Complete Time: 11:54 rt Administered Medications: 11:05 Drug: Tylenol 1000 mg Route: PO; ko1 13:41 Drug: NS 0.9% 1000 ml Route: IV; Rate: 1000 ml; Site: right antecubital; ko1 Disposition Summary: 07/14/22 12:11 Discharge Ordered Location: Home rt Problem: new rt Symptoms: are unchanged rt Condition: Stable rt Diagnosis - Fall on same level, unspecified rt - Unspecified injury of head, initial encounter rt Followup: rt - With: Private Physician - When: 2 - 3 days - Reason: Discharge Instructions: - Discharge Summary Sheet rt - Head Injury, Adult rt Forms: - Medication Reconciliation Form rt - Thank You Letter rt - Antibiotic Education rt - SBAR form ko1 - Prescription Opioid Use rt Signatures: Dispatcher [employer] Yokasta Boyle RN RN ko1 Linh Jaime RN RN db Ronak Castillo MD MD rt
--- NOTE | 2022-07-14 12:11 | ER ---
Nurse's Notes [facility] Name: Ander Del Rosario Age: 86 yrs Sex: Male : 1935 Arrival Date: 07/14/2022 Time: 10:50 Bed 15 Private MD: Diagnosis: Fall on same level, unspecified;Unspecified injury of head, initial encounter Presentation: 07/14 10:50 Chief complaint: EMS states: Ground level fall walking to restroom, got up alone is a db fall risk, fell hit right eye on the door handle. Has right eye bruise and abrasions to bilateral knees. Denies LOC. Glucose for EMS was 146. From [facility]. Care prior to arrival: None. Mechanism of Injury: Fall ground level. Trauma event details: Injury occurred in the [facility]. 10:50 Acuity: DIONNA 3 db 10:50 Method Of Arrival: EMS: [facility] db 11:00 Ebola Screen: No symptoms or risks identified at this time. Initial Sepsis Screen: Does ko1 the patient meet any 2 criteria? No. Patient's initial sepsis screen is negative. Does the patient have a suspected source of infection? No. Patient's initial sepsis screen is negative. 11:00 Coronavirus screen: At this time, the client does not indicate any symptoms associated ko1 with coronavirus-19. Risk Assessment: Do you want to hurt yourself or someone else? Patient reports no desire to harm self or others. Onset of symptoms was July 14, 2022. Trauma Activation: Not Applicable Physician: ED Physician; Name: ; Notified At: ; Arrived At: Physician: General Surgeon; Name: ; Notified At: ; Arrived At: Physician: Radiology; Name: ; Notified At: ; Arrived At: Physician: Respiratory; Name: ; Notified At: ; Arrived At: Physician: Lab; Name: ; Notified At: ; Arrived At: Historical: - Allergies: 10:56 No Known Allergies; db - Home Meds: 10:56 albuterol sulfate 2.5 mg /3 mL (0.083 %) Nebulizer nebu 2 times a day [Active]; db carvedilol 12.5 mg oral tab 1 tab 2 times per day [Active]; hydralazine 100 mg Oral tab 1 tab 3 times per day [Active]; hydrochlorothiazide 25 mg Oral tab once daily [Active]; lisinopril 20 mg Oral tab once daily [Active]; melatonin 3 mg Oral tab nightly [Active]; nystatin-triamcinolone powder Topical [Active]; quetiapine 25 mg oral tab 1 tab at bedtime [Active]; sertraline 50 mg oral tab 1 tab once daily [Active]; simethicone 80 mg Oral tab four times a day [Active]; acetaminophen 325 mg Oral cap 650 mg every 6 hours [Active]; - PMHx: 10:56 "leaky valve"; CHF; Hypertension; Pneumonia; Diabetes mellitus; Dementia; Chronic db systolic heart failure; Anxiety; pulmonary fibrosis; - Immunization history:: Client reports receiving the 2nd dose of the Covid vaccine. - Social history:: Smoking status: unknown. - Immunization history: Last tetanus immunization: - up to date. - Family history:: not pertinent. Screenin:50 Abuse screen: Denies threats or abuse. Denies injuries from another. Tuberculosis db screening: No symptoms or risk factors identified. 12:13 Nutritional screening: No deficits noted. Fall Risk Fall in past 12 months (25 points). ko1 Secondary diagnosis (15 points) impaired mobility, No IV (0 pts). Primary Survey: 10:50 NO uncontrolled hemorrhage observed. Breathing/Chest: Spontaneous respiratory effort, db equal unlabored respirations, breath sounds clear bilaterally, regular pattern, symmetrical chest rise and fall. Respiratory effort: spontaneous, unlabored, Breath sounds: clear, bilaterally. Respiratory pattern: regular, Chest inspection: symmetrical rise and fall of the chest. Circulation: No external hemorrhage present. Regular and strong central pulse, skin warm/dry/normal color. Skin color: pink. Disability Client is alert. Exposure/Environment: A warming method has been applied: A warm blanket has been provided to the patient. Reassessment Breathing: Spontaneous respiratory effort, equal unlabored respirations, breath sounds clear bilaterally, regular pattern with symmetrical chest rise and fall. Circulation: No external hemorrhage noted. Regular and strong central pulse, skin warm/dry/normal color. Disability: Alert. Assessment: 10:50 General: Appears in no apparent distress. Behavior is calm, cooperative, appropriate db for age, quiet. Pain: Complains of pain in right eye. Neuro: Level of Consciousness is awake, alert, obeys commands, Oriented to person, place, time, situation, Appropriate for age Speech is normal, Facial symmetry appears normal, Pupils are PERRLA. EENT: No deficits noted. No signs and/or symptoms were reported regarding the EENT system. Cardiovascular: No deficits noted. Respiratory: No deficits noted. Airway is patent Respiratory effort is even, unlabored, Respiratory pattern is regular, symmetrical. GI: No deficits noted. No signs and/or symptoms were reported involving the gastrointestinal system. : No deficits noted. No signs and/or symptoms were reported regarding the genitourinary system. Derm: Wound noted right eye Bruising that is dark purple, on right eye. Musculoskeletal: No deficits noted. No signs and/or symptoms reported regarding the musculoskeletal system. Injury Description: Abrasion sustained to right knee and left knee. Vital Signs: 10:50 BP 132 / 42; Pulse 70; Resp 20; Temp 98.4(O); Pulse Ox 98% ; Weight 90.72 kg; Height 5 db ft. 10 in. (177.80 cm); Pain 2/10; 11:24 BP 130 / 44; Pulse 70; Resp 19; Pulse Ox 98% ; ko1 12:13 BP 132 / 38; Pulse 67; Resp 21; Pulse Ox 99% on 2 lpm NC; ko1 10:50 Body Mass Index 28.70 (90.72 kg, 177.80 cm) db Lissett Coma Score: 10:50 Eye Response: spontaneous(4). Verbal Response: oriented(5). Motor Response: obeys db commands(6). Total: 15. Trauma Score (Adult): 10:50 Eye Response: spontaneous(1); Verbal Response: oriented(1); Motor Response: obeys db commands(2); Systolic BP: > 89 mm Hg(4); Respiratory Rate: 10 to 29 per min(4); Lissett Score: 15; Trauma Score: 12 ED Course: 10:50 Patient arrived in ED. db 10:50 Patient has correct armband on for positive identification. Placed in gown. Bed in low db position. Call light in reach. Side rails up X 1. 10:51 Ronak Castillo MD is Attending Physician. rt 10:52 Triage completed. db 11:00 Yokasta Bowen RN is Primary Nurse. ko1 11:00 Arm band placed on right wrist. ko1 11:21 CT Head C Spine In Process Unspecified. EDMS 12:13 Client placed on continuous cardiac and pulse oximetry monitoring. NIBP monitoring ko1 applied. satellite project site monitor on. 12:13 No provider procedures requiring assistance completed. ko1 12:26 Awaiting transportation. ko1 12:26 Report given to Lida at [facility], they will call back once transport ko1 is set up. 13:35 Inserted saline lock: 20 gauge in right antecubital area, using aseptic technique. ko1 14:31 IV discontinued, intact, bleeding controlled, No redness/swelling at site. Pressure ko1 dressing applied. 14:35 Patient maintains SpO2 saturation greater than 95% on room air. ko1 14:35 Thermoregulation: warm blanket given to patient. ko1 Administered Medications: 11:05 Drug: Tylenol 1000 mg Route: PO; ko1 13:41 Drug: NS 0.9% 1000 ml Route: IV; Rate: 1000 ml; Site: right antecubital; ko1 Medication: 12:13 VIS not applicable for this client. ko1 Intake: 14:35 IV: 1000ml (IV Fluid); Total: 1000ml. ko1 Outcome: 12:11 Discharge ordered by . rt 14:31 Discharged to [facility]. Report called to [facility] Transfer form completed. ko1 14:31 Condition: improved 14:31 Discharge instructions given to patient, [facility], Instructed on discharge instructions, follow up and referral plans. Demonstrated understanding of instructions, follow-up care, need for free water via peg tube per ER physician 14:34 Patient's length of stay in the Emergency Department was greater than 2 hours. ko1 14:36 Patient left the ED. ko1 Signatures: Dispatcher [employer] EDMN Yokasta Bowen, RN RN ko1 Linh Jaime, RN RN db Ronak Castillo MD MD rt Corrections: (The following items were deleted from the chart) 10:53 10:50 Chief complaint: EMS states: Ground level fall walking to restroom, got up alone db is a fall risk, fell hit right eye on the door handle. Has right eye bruise and abrasions to bilateral knees. Denies LOC. Glucose for EMS was 146 db 14:31 12:13 Patient did not have IV access during this emergency room visit. ko1 ko1 14:35 14:20 IV 1000, (IV Fluid), Intake Total 1000. ko1 ko1
[2022-07-14] MEDS ORDERED: NA CHLORIDE 0.9% 1,000 ML ONE (13:33)
[2022-07-14 14:46] VITALS: TEMP 98.4
[2022-07-14 15:02] VITALS: BP 132/38; O2SAT 99
== END 2022-07-14 14:36 | disposition home or self-care (01) ==
LOC: ER 10:48
DX: S09.90XA Unspecified injury of head, initial encounter (principal); W18.30XA Fall on same level, unspecified, initial encounter; I10 Essential (primary) hypertension; E11.9 Type 2 diabetes mellitus without complications; F03.90 Unspecified dementia, unspecified severity, without behavioral disturbance, psychotic disturbance, mood disturbance, and anxiety
CPT/HCPCS: 70450; 72125; 99285; J7030

== ENCOUNTER 2023-11-26 16:55 | Emergency (ER) | payer OTHER ==
[2023-11-26] MEDS ORDERED: NA CHLORIDE 0.9% 1,000 ML ONE ×2 (18:36→19:54)
[2023-11-26 18:48] LABS: Absolute Eosinophils 0.1 K/uL (0-0.5); Absolute Lymphocytes (CBC) 1.9 K/uL (0.7-4.9); Absolute Monocytes 0.7 K/uL (0.1-1.3); Absolute Neutrophil 2.7 K/uL (1.8-8.0); Basophils % 0.8 % (0-1.3); Eosinophils % 1.7 % (0-4.4); Hemoglobin 9.6 g/dL (13.6-17.9); Lymphocytes % 34.2 % (15.3-44.8); MCH 29.2 pg (27.0-35.0); MCHC 34.4 g/dL (32.0-36.0); MPV 7.1 fL (7.6-11.3); Monocytes % 13.1 % (3.3-12.3); Neutrophils % 50.2 % (41.7-73.7); Platelets 161 thou/uL (152-406); RBC Red Blood Cell Count 3.29 M/uL (4.33-5.43); Red Cell Distribution Width 15.2 % (12.1-15.2)
[2023-11-26 19:07] LABS: Albumin 3.3 g/dL (3.4-5.0); Albumin/Globulin Ratio 1.1 (1.1-1.8); Bilirubin Total 0.4 mg/dL (0.2-1.0); Globulin 3.1 g/dL (2.3-3.5); Magnesium 2.4 mg/dL (1.6-2.4); Phosphorus 3.9 mg/dL (2.5-4.9); Protein, Total 6.4 g/dL (6.4-8.2)
[2023-11-26 20:39] LABS: Specific Gravity 1.013 (1.005-1.030); Sqamous Epithelial None Seen /HPF (None Seen); Urine Bacteria None Seen /HPF (<20); Urine Bilirubin NEGATIVE (Negative); Urine Blood Negative (Negative); Urine Clarity Clear (Clear); Urine Color Light-Yellow (Yellow); Urine Culture Reflex Order NOT NEEDED; Urine Glucose NEGATIVE (Negative); Urine Ketones NEGATIVE (Negative); Urine Micro Reflex YN NO BILL MICROSCOPIC; Urine Nitrite NEGATIVE (Negative); Urine Protein NEGATIVE (Negative); Urine RBC <5 /HPF (None Seen); Urine Urobilinogen Normal (Normal); Urine WBC <5 /HPF (<5)
--- NOTE | 2023-11-26 20:42 | EDPHYS ---
Physician Documentation [facility] Name: Ander Del Rosario Age: 88 yrs Sex: Male : 1935 Arrival Date: 11/26/2023 Time: 16:55 Bed 7 Private MD: ED Physician Ronak Castillo HPI: 11/25 17:23 This 88 yrs old Male presents to ER via Other with complaints of Sent by Dr rosa aguilar for Dehydration. 17:23 had routine blood work done yesterday. was notified today about the results and told to sb4 come to the ER because he is very dehydrated. family states that he barely drinks any water. patient has no complaints at this time . Historical: - Allergies: 17:07 No Known Allergies; nj1 - PMHx: 17:07 Anxiety; CHF; Chronic systolic heart failure; Dementia; diabetes mellitus; nj1 Hypertension; Pneumonia; pulmonary fibrosis; - Immunization history:: Client reports receiving the 2nd dose of the Covid vaccine. - Infectious Disease History:: Denies. - Social history:: Smoking status: Patient denies any tobacco usage or history of. ROS: 17:34 Constitutional: Negative for fever, chills, and weight loss, sb4 17:34 All other systems are negative, Exam: 18:24 Constitutional: This is a well developed, well nourished patient who is awake, alert, sb4 and in no acute distress. Head/Face: Normocephalic, atraumatic. Eyes: Extra-ocular motions intact. Periorbital areas with no swelling, redness, or edema. Cardiovascular: Regular rate and rhythm with a normal S1 and S2. Respiratory: Lungs have equal breath sounds bilaterally, clear to auscultation and percussion. No rales, rhonchi or wheezes noted. No increased work of breathing, no retractions or nasal flaring. Abdomen/GI: Soft, non-tender, no distension. Back: No spinal tenderness. No costovertebral tenderness. Full range of motion. Skin: Warm, dry with normal turgor. Normal color with no rashes, no lesions, and no evidence of cellulitis. MS/ Extremity: Pulses equal, no cyanosis. Neurovascular intact. Full, normal range of motion. Neuro: Awake and alert, GCS 15, oriented to person, place, time, and situation. Motor strength 5/5 in all extremities. Sensory grossly intact. Vital Signs: 17:04 BP 129 / 24; Pulse 68; Resp 18; Temp 97.9(O); Pulse Ox 99% ; MAP 52 mmHg; Weight 78.93 nj1 kg (M); Height 5 ft. 10 in. ; 19:59 BP 172 / 53; Pulse 66; Resp 18; Pulse Ox 99% ; vc1 21:00 BP 166 / 50; Pulse 66; Resp 18; Pulse Ox 99% ; vc1 17:04 Body Mass Index 24.97 (78.93 kg, 177.8 cm) nj1 MDM: 17:10 Patient medically screened. sb4 19:13 Data reviewed: vital signs, nurses notes, lab test result(s), and as a result, I will sb4 discharge patient. Consideration of Admission/Observation Escalation of care including admission/observation considered. ED course: BUN/Cr slightly above baseline. Do not think he requires admission. Will hydrate with 2L of fluid and discharge home for repeat lab work in 1 week with PCP. patient and family agree with plan of care. will return for any new or worsening symptoms. 11/25 17:11 Order name: CBC with Diff; Complete Time: 18:56 sb4 11/25 17:11 Order name: CMP; Complete Time: 19:10 sb4 11/25 17:11 Order name: Magnesium; Complete Time: 19:10 sb4 11/25 17:11 Order name: Phosphorus; Complete Time: 19:10 sb4 11/25 20:10 Order name: UAM; Complete Time: 20:39 sb4 11/25 17:11 Order name: IV Saline Lock; Complete Time: 18:38 sb4 11/25 17:11 Order name: Labs collected and sent; Complete Time: 18:38 sb4 Administered Medications: 18:37 Drug: NS 0.9% IV 1000 ml IV at 1 bolus Per protocol; 1000 mL bolus Route: IV; Rate: 1 ko1 bolus; Site: right antecubital; 19:30 Follow up: IV Status: Completed infusion; IV Intake: 1000ml vc1 19:59 Drug: NS 0.9% IV 1000 ml IV at 1 bolus Per protocol; 1000 mL bolus Route: IV; Rate: 1 vc1 bolus; Site: right antecubital; 21:39 Follow up: IV Status: Completed infusion; IV Intake: 1000ml vc1 Disposition Summary: 11/26/23 20:41 Discharge Ordered Notes: Location: Home sb4 Problem: new sb4 Symptoms: have improved sb4 Condition: Stable sb4 Diagnosis - Dehydration sb4 Followup: sb4 - With: Private Physician - When: 1 week - Reason: Recheck today's complaints, Re-evaluation by your physician Discharge Instructions: - Discharge Summary Sheet sb4 - Dehydration, Elderly sb4 Forms: - Thank You Letter sb4 - Patient Portal Instructions sb4 - Leadership Thank You Letter sb4 Signatures: Dispatcher [employer] EDMS Melissa Camilo RN RN vc1 Yokasta Bowen RN RN ko1 Rosibel Lassiter PA-C PA-C sb4 Monse Horner RN RN nj1 Corrections: (The following items were deleted from the chart) 17:11 17:11 CBC+H.LAB.BRZ ordered. EDMS EDMS 17:11 17:11 COMPREHENSIVE METABOLIC PANEL+C.LAB.BRZ ordered. EDMS EDMS 17:11 17:11 MAGNESIUM+C.LAB.BRZ ordered. EDMS EDMS 17:11 17:11 PHOSPHORUS+C.LAB.BRZ ordered. EDMS EDMS 17:35 17:23 patient states . sb4 sb4 18:25 17:34 Constitutional: This is a well developed, well nourished patient who is awake, sb4 alert, and in no acute distress. Head/Face: Normocephalic, atraumatic. Eyes: Extra-ocular motions intact. Periorbital areas with no swelling, redness, or edema. ENT: Mucous membranes moist. Cardiovascular: Regular rate and rhythm with a normal S1 and S2. Respiratory: Lungs have equal breath sounds bilaterally, clear to auscultation and percussion. No rales, rhonchi or wheezes noted. No increased work of breathing, no retractions or nasal flaring. Abdomen/GI: Soft, non-tender, no distension. Skin: Warm, dry with normal turgor. Normal color with no rashes, no lesions, and no evidence of cellulitis. MS/ Extremity: Pulses equal, no cyanosis. Neurovascular intact. Full, normal range of motion. Neuro: Awake and alert, GCS 15, oriented to person, place, time, and situation. Motor strength 5/5 in all extremities. Sensory grossly intact. sb4
--- NOTE | 2023-11-26 20:42 | ER ---
Nurse's Notes [facility] Name: Ander Del Rosario Age: 88 yrs Sex: Male : 1935 Arrival Date: 11/26/2023 Time: 16:55 Bed 7 Private MD: Diagnosis: Dehydration Presentation: 11/25 17:04 Chief complaint: Brother states PCP called them today with instructions to come to ED nj1 for IV fluids. Seen a couple days ago, blood work drawn then. Coronavirus screen: Vaccine status: Patient reports receiving the 2nd dose of the covid vaccine. Ebola Screen: Patient denies travel to an Ebola-affected area in the 21 days before illness onset. Initial Sepsis Screen: Does the patient meet any 2 criteria? No. Patient's initial sepsis screen is negative. Does the patient have a suspected source of infection? No. Patient's initial sepsis screen is negative. Risk Assessment: Do you want to hurt yourself or someone else? Patient reports no desire to harm self or others. Onset of symptoms was 2023. 17:04 Method Of Arrival: Other [facility] 17:04 Acuity: DIONNA 3 [facility] Triage Assessment: 17:08 General: Appears in no apparent distress. comfortable, Behavior is calm, cooperative, nj1 appropriate for age. Pain: Denies pain. Historical: - Allergies: 17:07 No Known Allergies; nj1 - PMHx: 17:07 Anxiety; CHF; Chronic systolic heart failure; Dementia; diabetes mellitus; nj1 Hypertension; Pneumonia; pulmonary fibrosis; - Immunization history:: Client reports receiving the 2nd dose of the Covid vaccine. - Infectious Disease History:: Denies. - Social history:: Smoking status: Patient denies any tobacco usage or history of. Screenin:00 [facility] ED Fall Risk Assessment (Adult) History of falling in the last 3 months, vc1 including since admission No falls in past 3 months (0 pts) Confusion or Disorientation No (0 pts) Intoxicated or Sedated No (0 pts) Impaired Gait No (0 pts) Mobility Assist Device Used No (0 pt) Altered Elimination No (0 pt) Score/Fall Risk Level 0 - 2 = Low Risk Oriented to surroundings, Maintained a safe environment, Educated pt \T\ family on fall prevention, incl call for assistance when getting out of bed. Abuse screen: Denies threats or abuse. Nutritional screening: No deficits noted. Tuberculosis screening: No symptoms or risk factors identified. Assessment: 20:00 General: Appears in no apparent distress. uncomfortable, slender, Behavior is calm, vc1 cooperative, appropriate for age. Pain: Complains of pain in coccyx Pain does not radiate. Pain currently is 8 out of 10 on a pain scale. Quality of pain is described as sharp. Neuro: Level of Consciousness is awake, alert, obeys commands, Oriented to person, place, time, situation, Appropriate for age. Cardiovascular: No deficits noted. Respiratory: Airway is patent Respiratory effort is even, unlabored, Respiratory pattern is regular, symmetrical, Breath sounds are clear. GI: Abdomen is flat, Bowel sounds present X 4 quads. : Urine is clear, Last void at 20:01. Reports difficulty urinating, no pain. EENT: No deficits noted. No signs and/or symptoms were reported regarding the EENT system. Derm: No deficits noted. No signs and/or symptoms reported regarding the dermatologic system. Musculoskeletal: Reports weakness in right leg and left leg. 21:00 Reassessment: Patient appears in no apparent distress at this time. Patient and/or vc1 family updated on plan of care and expected duration. Pain level reassessed. Patient is alert, oriented x 3, equal unlabored respirations, skin warm/dry/pink. Patient states feeling better. Patient states symptoms have improved. Vital Signs: 17:04 BP 129 / 24; Pulse 68; Resp 18; Temp 97.9(O); Pulse Ox 99% ; MAP 52 mmHg; Weight 78.93 nj1 kg (M); Height 5 ft. 10 in. ; 19:59 BP 172 / 53; Pulse 66; Resp 18; Pulse Ox 99% ; vc1 21:00 BP 166 / 50; Pulse 66; Resp 18; Pulse Ox 99% ; vc1 17:04 Body Mass Index 24.97 (78.93 kg, 177.8 cm) [facility] ED Course: 17:00 Patient arrived in ED. im 17:02 Rosibel Lassiter PA-C is PHCP. sb4 17:02 Ronak Castillo MD is Attending Physician. sb4 17:07 Triage completed. nj1 17:08 Arm band placed on right wrist. nj1 18:38 CBC with Diff Sent. ko1 18:38 CMP Sent. ko1 18:38 Magnesium Sent. ko1 18:38 Phosphorus Sent. ko1 18:40 Initial lab(s) drawn, by ks, sent to lab. Inserted saline lock: 20 gauge in right bc6 antecubital area, using aseptic technique. Blood collected. 19:34 Patient has correct armband on for positive identification. Bed in low position. Call vc1 light in reach. Pulse ox on. Sitter at bedside. 19:49 Melissa Camilo, RN is Primary Nurse. vc1 20:02 Pillow given. Head of bed elevated. Turned placed pillow under buttock. vc1 20:02 No provider procedures requiring assistance completed. vc1 21:38 Provided Education on: drink water. vc1 21:38 IV discontinued, intact, bleeding controlled, No redness/swelling at site. Pressure vc1 dressing applied. Administered Medications: 18:37 Drug: NS 0.9% IV 1000 ml IV at 1 bolus Per protocol; 1000 mL bolus Route: IV; Rate: 1 ko1 bolus; Site: right antecubital; 19:30 Follow up: IV Status: Completed infusion; IV Intake: 1000ml vc1 19:59 Drug: NS 0.9% IV 1000 ml IV at 1 bolus Per protocol; 1000 mL bolus Route: IV; Rate: 1 vc1 bolus; Site: right antecubital; 21:39 Follow up: IV Status: Completed infusion; IV Intake: 1000ml vc1 Medication: 19:34 VIS not applicable for this client. vc1 Intake: 19:30 IV: 1000ml; Total: 1000ml. vc1 21:39 IV: 1000ml; Total: 2000ml. vc1 Outcome: 20:41 Discharge ordered by . sb4 21:37 Discharged to home via walker vc1 21:37 Condition: good 21:37 Discharge instructions given to patient, Instructed on discharge instructions, follow up and referral plans. Demonstrated understanding of instructions, follow-up care, 21:39 Patient left the ED. vc1 Signatures: Melissa Camilo RN RN vc1 Yokasta Bowen RN RN joe1 Rosibel Lassiter, PA-C PA-C sb4 Margie Powers 6 Monse Horner RN RN [email or web address] Adia Martinez Corrections: (The following items were deleted from the chart) 17:09 17:04 Pulse 68bpm; Resp 18bpm; Pulse Ox 99%; Temp 97.9F Oral; 78.93 kg Measured; Height nj1 5 ft. 10 in.; BMI: 24.9; nj1
[2023-11-26 23:17] VITALS: BP 166/50; TEMP 97.9; O2SAT 99
== END 2023-11-26 21:39 | disposition home or self-care (01) ==
LOC: ER 16:55
DX: E86.0 Dehydration (principal); E11.9 Type 2 diabetes mellitus without complications; I10 Essential (primary) hypertension
CPT/HCPCS: 96361; 85025; 81001; 36415; 83735; 84100; 80053; 96360; 99285; J7030 ×2

== ENCOUNTER 2023-12-23 12:17 | Emergency (ER) | payer OTHER ==
[2023-12-23 13:19] LABS: Absolute Eosinophils 0.1 K/uL (0-0.5); Absolute Lymphocytes (CBC) 1.4 K/uL (0.7-4.9); Absolute Monocytes 0.8 K/uL (0.1-1.3); Absolute Neutrophil 3.8 K/uL (1.8-8.0); Basophils % 0.5 % (0-1.3); Hematocrit 26.3 % (39.6-49.0); Hemoglobin 8.8 g/dL (13.6-17.9); Lymphocytes % 22.3 % (15.3-44.8); MCH 28.8 pg (27.0-35.0); MCHC 33.4 g/dL (32.0-36.0); MCV 86.3 fL (80-100); MPV 7.9 fL (7.6-11.3); Monocytes % 12.4 % (3.3-12.3); Neutrophils % 62.8 % (41.7-73.7); Nucleated Red Blood Cells % 0.1 % (0-0); Platelets 138 thou/uL (152-406); RBC Red Blood Cell Count 3.04 M/uL (4.33-5.43); Red Cell Distribution Width 15.5 % (12.1-15.2)
[2023-12-23 13:39] LABS: Anion Gap 8.4 mEq/L (5.0-15.0); Potassium 4.4 mEq/L (3.5-5.1)
[2023-12-23 13:43] LABS: Bilirubin Direct 0.2 mg/dL (0-0.2); Bilirubin Indirect, Calculated 0.5 mg/dL (0.2-0.8); Bilirubin Total 0.7 mg/dL (0.2-1.0); Globulin 2.9 g/dL (2.3-3.5); Protein, Total 5.9 g/dL (6.4-8.2)
[2023-12-23 15:06] LABS: Sqamous Epithelial None Seen /HPF (None Seen); Urine Bacteria <20 /HPF (<20); Urine Culture Reflex Order NOT NEEDED; Urine Mucus Slight /HPF (None Seen); Urine RBC <5 /HPF (None Seen); Urine WBC <5 /HPF (<5)
[2023-12-23 15:15] LABS: Specific Gravity 1.007 (1.005-1.030); Urine Bilirubin NEGATIVE (Negative); Urine Blood Negative (Negative); Urine Clarity Clear (Clear); Urine Color Light-Yellow (Yellow); Urine Glucose NEGATIVE (Negative); Urine Ketones NEGATIVE (Negative); Urine Microscopic Reflex YN NO UMIC; Urine Nitrite NEGATIVE (Negative); Urine Protein NEGATIVE (Negative); Urine Urobilinogen Normal (Normal)
--- NOTE | 2023-12-23 16:14 | ER ---
Nurse's Notes [facility] Name: Ander Del Rosario Age: 88 yrs Sex: Male : 1935 Arrival Date: 12/23/2023 Time: 12:17 Bed 14 Private MD: Diagnosis: Dehydration;Muscle weakness (generalized) Presentation: 12/22 12:25 Chief complaint: EMS states: physical therapy told them he is weaker than normal. cp4 Coronavirus screen: Client denies travel out of the [place] in the last 14 days. At this time, the client does not indicate any symptoms associated with coronavirus-19. Ebola Screen: Patient negative for fever greater than or equal to 101.5 degrees Fahrenheit, and additional compatible Ebola Virus Disease symptoms Patient denies exposure to infectious person. Patient denies travel to an Ebola-affected area in the 21 days before illness onset. No symptoms or risks identified at this time. Initial Sepsis Screen: Does the patient meet any 2 criteria? No. Patient's initial sepsis screen is negative. Does the patient have a suspected source of infection? No. Patient's initial sepsis screen is negative. Risk Assessment: Do you want to hurt yourself or someone else? Patient reports no desire to harm self or others. Onset of symptoms was December 23, 2023. 12:25 Method Of Arrival: EMS: [facility] 12:25 Acuity: DIONNA 3 cp4 Triage Assessment: 12:28 General: Appears in no apparent distress. Behavior is calm, cooperative, appropriate cp4 for age. Pain: Denies pain. Historical: - Allergies: 12:28 No Known Allergies; cp4 - Home Meds: 12:28 acetaminophen 325 mg Oral cap 650 mg every 6 hours [Active]; albuterol sulfate 2.5 mg cp4 /3 mL (0.083 %) Inhl nebu 2 times a day [Active]; carvedilol 12.5 mg Oral tab 1 tab 2 times per day [Active]; hydralazine 100 mg Oral tab 1 tab 3 times per day [Active]; hydrochlorothiazide 25 mg Oral tab once daily [Active]; melatonin 3 mg Oral tab nightly [Active]; nystatin-triamcinolone powder Topical [Active]; quetiapine 25 mg Oral tab 1 tab at bedtime [Active]; sertraline 50 mg Oral tab 1 tab once daily [Active]; simethicone 80 mg Oral tab four times a day [Active]; - PMHx: 12:28 Anxiety; CHF; Chronic systolic heart failure; Dementia; diabetes mellitus; cp4 Hypertension; Pneumonia; pulmonary fibrosis; - Immunization history:: Adult Immunizations up to date. - Infectious Disease History:: Denies. CDIFF, C. Auris, ESBL, MRSA (w/in 1 year), VRE (w/in 1 year), TB, . - Social history:: Smoking status: Patient denies any tobacco usage or history of. - Family history:: not pertinent. - Hospitalizations: : No recent hospitalization is reported. Screenin:31 [facility] ED Fall Risk Assessment (Adult) History of falling in the last 3 months, cp4 including since admission No falls in past 3 months (0 pts) Confusion or Disorientation No (0 pts) Intoxicated or Sedated No (0 pts) Impaired Gait No (0 pts) Mobility Assist Device Used No (0 pt) Altered Elimination No (0 pt) Score/Fall Risk Level 0 - 2 = Low Risk Oriented to surroundings, Maintained a safe environment, Assessed \T\ reinforced patient's understanding of fall precautions, Hourly rounding (assess needs \T\ fall precautionary measures) done. Abuse screen: Denies threats or abuse. Nutritional screening: No deficits noted. Tuberculosis screening: No symptoms or risk factors identified. Assessment: 12:31 Reassessment: No changes from previously documented assessment. Neuro: No deficits cp4 noted. Vital Signs: 12:25 BP 120 / 42; Pulse 71; Resp 18; Temp 97.8; Pulse Ox 97% ; Weight 87.09 kg; Height 6 ft. cp4 1 in. ; Pain 0/10; 12:30 BP 149 / 37; Pulse 59; Resp 18; Pulse Ox 99% ; cp4 13:30 BP 146 / 42; Pulse 71; Resp 18; Pulse Ox 98% ; cp4 14:30 BP 131 / 63; Pulse 73; Resp 18; Pulse Ox 96% ; cp4 15:30 BP 155 / 38; Pulse 62; Resp 18; Pulse Ox 97% ; cp4 12:25 Body Mass Index 25.33 (87.09 kg, 185.42 cm) cp4 12:25 Pain Scale: Adult cp4 ED Course: 12:25 Patient arrived in ED. cp4 12:25 Paco An MD is Attending Physician. rn 12:25 Cathie Mckenna is Primary Nurse. cp4 12:28 Triage completed. cp4 12:28 Arm band placed on right wrist. Patient placed in an exam room, on a stretcher. cp4 12:31 Bed in low position. Call light in reach. Side rails up X 1. cp4 12:58 Maintain EMS IV. cp4 13:12 Basic Metabolic Panel Sent. cp4 13:41 EKG done, by ED staff, reviewed by Paco An MD. jr12 16:32 Provided Education on: weakness, dehydration. cp4 16:32 No provider procedures requiring assistance completed. intact, bleeding controlled, No cp4 redness/swelling at site. Pressure dressing applied. Administered Medications: 13:15 Drug: NS 0.9% IV 250 ml IV at bolus once Route: IV; Rate: bolus; Site: left forearm; cp4 13:45 Follow up: Response: No adverse reaction; IV Status: Completed infusion cp4 Medication: 12:31 VIS not applicable for this client. cp4 Outcome: 16:14 Discharge ordered by MD. rn 16:32 Discharged to home via wheelchair, cp4 16:32 Condition: stable 16:32 Discharge instructions given to regional geodetic advisor, Instructed on discharge instructions, follow up and referral plans. Demonstrated understanding of instructions, follow-up care, 16:33 Patient left the ED. cp4 Signatures: Paco An MD MD rn Potter, Christina cp4 Traci Salinas [facility] Corrections: (The following items were deleted from the chart) : 12:28 Home Meds: lisinopril 20 mg Oral tab once daily; cp4 cp4
--- NOTE | 2023-12-23 16:14 | EDPHYS ---
Physician Documentation [facility] Name: Ander Del Rosario Age: 88 yrs Sex: Male : 1935 Arrival Date: 12/23/2023 Time: 12:17 Bed 14 Private MD: ED Physician Paco An HPI: 12/22 12:57 This 88 yrs old Male presents to ER via EMS with complaints of General Weakness. rn 12:57 Patient sent over by EMS, was being seen by home health provider and told that he was rn weaker than normal. No fever. No fall or injury. No vomiting or diarrhea. Denies acute pain. No shortness of breath. No chest pain.. Onset: The symptoms/episode began/occurred at an unknown time. Severity of symptoms: At their worst the symptoms were mild in the emergency department the symptoms are unchanged. The patient has experienced similar episodes in the past. The patient has not recently seen a physician. Historical: - Allergies: 12:28 No Known Allergies; cp4 - Home Meds: 12:28 acetaminophen 325 mg Oral cap 650 mg every 6 hours [Active]; albuterol sulfate 2.5 mg cp4 /3 mL (0.083 %) Inhl nebu 2 times a day [Active]; carvedilol 12.5 mg Oral tab 1 tab 2 times per day [Active]; hydralazine 100 mg Oral tab 1 tab 3 times per day [Active]; hydrochlorothiazide 25 mg Oral tab once daily [Active]; melatonin 3 mg Oral tab nightly [Active]; nystatin-triamcinolone powder Topical [Active]; quetiapine 25 mg Oral tab 1 tab at bedtime [Active]; sertraline 50 mg Oral tab 1 tab once daily [Active]; simethicone 80 mg Oral tab four times a day [Active]; - PMHx: 12:28 Anxiety; CHF; Chronic systolic heart failure; Dementia; diabetes mellitus; cp4 Hypertension; Pneumonia; pulmonary fibrosis; - Immunization history:: Adult Immunizations up to date. - Infectious Disease History:: Denies. CDIFF, C. Auris, ESBL, MRSA (w/in 1 year), VRE (w/in 1 year), TB, . - Social history:: Smoking status: Patient denies any tobacco usage or history of. - Family history:: not pertinent. - Hospitalizations: : No recent hospitalization is reported. ROS: 12:57 Constitutional: Negative for fever, chills, and weight loss, Eyes: Negative for injury, rn pain, redness, and discharge, ENT: Negative for injury, pain, and discharge, Neck: Negative for injury, pain, and swelling, Cardiovascular: Negative for chest pain, palpitations, and edema, Respiratory: Negative for shortness of breath, cough, wheezing, and pleuritic chest pain, Abdomen/GI: Negative for abdominal pain, nausea, vomiting, diarrhea, and constipation, Back: Negative for injury and pain, : Negative for injury, bleeding, discharge, and swelling, MS/Extremity: Negative for injury and deformity, Skin: Negative for injury, rash, and discoloration, Neuro: + Generalized weakness and malaise Exam: 12:57 Constitutional: This is a well developed, well nourished patient who is awake, alert, rn and in no acute distress. ENT: Dry mucous membranes Cardiovascular: Regular rate and rhythm. No pulse deficits. Respiratory: No increased work of breathing, no retractions or nasal flaring. Abdomen/GI: Soft, non-tender Skin: Stage I sacral/ischial decubitus skin changes present, no evidence of infection. MS/ Extremity: Pulses equal, no cyanosis. Neurovascular intact. Full, normal range of motion. Equal circumference. Neuro: Awake and alert, GCS 15, oriented to person, place, and situation. Cranial nerves II-XII grossly intact. Motor strength 4/5 in all extremities. Sensory grossly intact. 13:52 ECG was reviewed by the Attending Physician. rn Vital Signs: 12:25 BP 120 / 42; Pulse 71; Resp 18; Temp 97.8; Pulse Ox 97% ; Weight 87.09 kg; Height 6 ft. cp4 1 in. ; Pain 0/10; 12:30 BP 149 / 37; Pulse 59; Resp 18; Pulse Ox 99% ; cp4 13:30 BP 146 / 42; Pulse 71; Resp 18; Pulse Ox 98% ; cp4 14:30 BP 131 / 63; Pulse 73; Resp 18; Pulse Ox 96% ; cp4 15:30 BP 155 / 38; Pulse 62; Resp 18; Pulse Ox 97% ; cp4 12:25 Body Mass Index 25.33 (87.09 kg, 185.42 cm) cp4 12:25 Pain Scale: Adult cp4 MDM: 12:25 Patient medically screened. rn 16:13 Differential Diagnosis Dehydration, renal failure, electrolyte disorder, UTI. Data rn reviewed: vital signs, nurses notes, lab test result(s), EKG, and as a result, I will discharge patient. Counseling: I had a detailed discussion with the patient and/or guardian regarding the historical points, exam findings, and any diagnostic results supporting the discharge/admit diagnosis, lab results, the need for outpatient follow up, to return to the emergency department if symptoms worsen or persist or if there are any questions or concerns that arise at home. Response to treatment: the patient's symptoms have mildly improved after treatment, and as a result, I will discharge patient. Special discussion: I discussed with the patient/guardian in detail that at this point there is no indication for admission to the hospital. It is understood, however, that if the symptoms persist or worsen the patient needs to return immediately for re-evaluation. ED course: Patient feels better after IV fluids. No other acute findings and workup today. I have personally reviewed all of the results, including but not limited to blood tests deemed necessary to safely discharge this patient at this time. All results given to and printed out for patient. I personally went over all the results with the patient and answered all questions. Patient will follow-up with PCP and or specialist as discussed. Return precautions given and understood.. 12/22 12:46 Order name: CBC with Diff; Complete Time: 14:33 rn 12/22 12:46 Order name: Basic Metabolic Panel; Complete Time: 14:33 rn 12/22 12:46 Order name: Urinalysis w/ reflexes; Complete Time: 15:16 12/22 12:46 Order name: BNP; Complete Time: 14:33 rn 12/22 12:48 Order name: LFT's; Complete Time: 14:33 rn 12/22 12:46 Order name: EKG; Complete Time: 12:46 12/22 12:46 Order name: IV Start; Complete Time: 13:12 12/22 12:46 Order name: Cardiac monitoring; Complete Time: 13:12 12/22 12:46 Order name: O2 Sat Monitoring; Complete Time: 13:12 12/22 12:46 Order name: EKG - Nurse/Tech; Complete Time: 13:40 rn EC:52 Rate is 68 beats/min. Rhythm is regular. QRS [place]ams is Normal. NM interval is normal. QRS rn interval is normal. QT interval is normal. No Q waves. T waves are Normal. No ST changes noted. Clinical impression: NSR w/ Non-specific ST/T Changes. Interpreted by me. Reviewed by me. Administered Medications: 13:15 Drug: NS 0.9% IV 250 ml IV at bolus once Route: IV; Rate: bolus; Site: left forearm; cp4 13:45 Follow up: Response: No adverse reaction; IV Status: Completed infusion cp4 Disposition Summary: 12/23/23 16:14 Discharge Ordered Notes: Location: Home rn Problem: new rn Symptoms: have improved rn Condition: Stable rn Diagnosis - Dehydration rn - Muscle weakness (generalized) rn Followup: rn - With: Private Physician - When: As needed - Reason: Recheck today's complaints, Re-evaluation by your physician Discharge Instructions: - Discharge Summary Sheet rn - Dehydration, Elderly rn - Weakness rn Forms: - Medication Reconciliation Form rn - Antibiotic media relations intern - Prescription Opioid Use rn - Patient Portal Instructions rn - Leadership Thank You Letter rn Signatures: Dispatcher [employer] Paco Roldan MD MD rn Potter, Christina cp4 Corrections: (The following items were deleted from the chart) 12:31 12:28 Home Meds: lisinopril 20 mg Oral tab once daily; cp4 cp4
[2023-12-23 17:05] VITALS: BP 155/38; TEMP 97.8; O2SAT 97
--- NOTE | 2023-12-24 14:45 | EKG ---
Test Date: 2023-12-23 Test Time: 13:37:30 X Ray Technologist: BA MEASUREMENT RESULTS: Intervals: Rate: 68 VT: 218 QRSD: 100 QT: 444 QTc: 472 [place]: P: 269 VT: 218 QRS: 61 T: 96 INTERPRETIVE STATEMENTS: Unusual P axis, possible ectopic atrial rhythm Abnormal ECG Compared to ECG 05/07/2022 01:00:07 Sinus rhythm no longer present First degree AV block no longer present ST (T wave) deviation no longer present Possible ischemia no longer present Prolonged QT interval no longer present Electronically Signed On 12-24-23 14:43:42 CDT by Rey Manzano
== END 2023-12-23 16:33 | disposition home or self-care (01) ==
LOC: ER 12:17
DX: E86.0 Dehydration (principal); M62.81 Muscle weakness (generalized); I10 Essential (primary) hypertension; I50.9 Heart failure, unspecified; E11.9 Type 2 diabetes mellitus without complications; F03.90 Unspecified dementia, unspecified severity, without behavioral disturbance, psychotic disturbance, mood disturbance, and anxiety
CPT/HCPCS: 36415; 80048; 80076; 81003; 83880; 85025; 93005; 96365; 99284

== ENCOUNTER 2024-05-28 06:51 | Emergency (ER) | payer OTHER ==
--- NOTE | 2024-05-28 08:33 | EDPHYS ---
Physician Documentation [facility] Name: Ander Del Rosario Age: 88 yrs Sex: Male : 1935 Arrival Date: 05/28/2024 Time: 06:51 Bed 4 Private MD: ED Physician Paco An HPI: 05/28 08:01 This 88 yrs old Male presents to ER via Wheelchair with complaints of Incision Problem, rn BLEEDING FROM INCISION ON FOREHEAD AND EAR. 08:01 Patient presents to ED for recheck of: Excisional biopsy. The affected area is on the rn Forehead and left ear. Previous treatment: The patient was initially treated 2 day(s) ago. The patient has not experienced similar symptoms in the past. Patient reports excisional biopsy to forehead and left ear by dermatology 2 days ago. Not on blood thinners. No trauma. Reports increased bleeding since yesterday, has not changed dressing but dressing is saturated. Otherwise feels well.. Historical: - Allergies: 07:00 No Known Allergies; aa5 - PMHx: 07:00 Anxiety; Chronic systolic heart failure; Dementia; diabetes mellitus; Hypertension; aa5 Leaky valve; Pneumonia; pulmonary fibrosis; - Immunization history:: Adult Immunizations unknown. - Infectious Disease History:: Denies. - Social history:: Smoking status: Patient denies any tobacco usage or history of. - Family history:: not pertinent. - Hospitalizations: : No recent hospitalization is reported. ROS: 08:01 Constitutional: Negative for fever, chills, and weight loss, Cardiovascular: Negative rn for chest pain, palpitations, and edema, Respiratory: Negative for shortness of breath, cough, wheezing, and pleuritic chest pain, Skin: Positive for minor bleeding at excisional biopsy sites at forehead and left ear Neuro: Negative for headache, weakness, numbness, tingling, and seizure, Exam: 08:01 Constitutional: This is a well developed, well nourished patient who is awake, alert, rn and in no acute distress. Head/Face: 2 cm excisional biopsy site, moderate depth mid forehead with very slow venous bleeding/capillary bleeding noted. Dressing with clot present. ENT: Left external ear with 1-1/2 cm excisional biopsy, moderate depth, no foreign body, minimal venous bleeding noted, less blood when compared to forehead Cardiovascular: Regular rate and rhythm. No pulse deficits. Vital Signs: 07:00 BP 133 / 41; Pulse 88; Resp 18 S; Temp 97.6(TE); Pulse Ox 97% on R/A; Weight 74.39 kg aa5 (R); Height 5 ft. 10 in. (R); 08:00 BP 128 / 45; Pulse 75; Resp 16 S; Pulse Ox 98% on R/A; aa5 07:00 Body Mass Index 23.53 (74.39 kg, 177.8 cm) aa5 MDM: 07:01 Patient medically screened. rn 08:32 Differential diagnosis: Bleeding wound from biopsy. Data reviewed: vital signs, nurses rn notes, and as a result, I will discharge patient. Counseling: I had a detailed discussion with the patient and/or guardian regarding the historical points, exam findings, and any diagnostic results supporting the discharge/admit diagnosis, the need for outpatient follow up, to return to the emergency department if symptoms worsen or persist or if there are any questions or concerns that arise at home. Response to treatment: the patient's symptoms have markedly improved after treatment, and as a result, I will discharge patient. Special discussion: I discussed with the patient/guardian in detail that at this point there is no indication for admission to the hospital. It is understood, however, that if the symptoms persist or worsen the patient needs to return immediately for re-evaluation. Based on the history and exam findings, there is no indication for further emergent testing or inpatient evaluation. I discussed with the patient/guardian the need to see the vessel manager for further evaluation of the symptoms. ED course: Surgicel applied to wound with pressure dressing, no longer bleeding, bleeding controlled. Will discharge home and patient is going to follow-up with dermatology in the next day or 2. Return precautions given and understood.. 05/28 07:28 Order name: Wound Care; Complete Time: 07:40 rn Administered Medications: No medications were administered Disposition Summary: 05/28/24 08:33 Discharge Ordered Notes: Location: Home rn Problem: new rn Symptoms: have improved rn Condition: Stable rn Diagnosis - Unspecified open wound of unspecified part of head, initial encounter rn Followup: rn - With: Private Physician - When: As needed - Reason: Recheck today's complaints, Re-evaluation by your physician Discharge Instructions: - Discharge Summary Sheet rn - How to Change Your Wound Dressing rn Forms: - Medication Reconciliation Form rn - Antibiotic engineer intern - Prescription Opioid Use rn - Patient Portal Instructions rn - Leadership Thank You Letter rn Signatures: Paco An MD MD rn Calderon, Audri RN RN aa5
--- NOTE | 2024-05-28 08:33 | ER ---
Nurse's Notes [facility] Name: Ander Del Rosario Age: 88 yrs Sex: Male : 1935 Arrival Date: 05/28/2024 Time: 06:51 Bed 4 Private MD: Diagnosis: Unspecified open wound of unspecified part of head, initial encounter Presentation: 05/28 07:00 Acuity: DIONNA 4 aa5 07:00 Coronavirus screen: At this time, the client does not indicate any symptoms associated aa5 with coronavirus-19. Ebola Screen: Patient denies travel to an Ebola-affected area in the 21 days before illness onset. Initial Sepsis Screen: Does the patient meet any 2 criteria? No. Patient's initial sepsis screen is negative. Does the patient have a suspected source of infection? No. Patient's initial sepsis screen is negative. Risk Assessment: Do you want to hurt yourself or someone else? Patient reports no desire to harm self or others. Onset of symptoms was May 27, 2024. 07:00 Method Of Arrival: Wheelchair aa5 07:00 Chief complaint: Pt's family reports pt was seen by Optics Manufacturing Technician on Saturday and skin aa5 biopsy completed to forehead and to left ear; reports bleeding to sites since yesterday. Denies taking any anticoagulants. Historical: - Allergies: 07:00 No Known Allergies; aa5 - PMHx: 07:00 Anxiety; Chronic systolic heart failure; Dementia; diabetes mellitus; Hypertension; aa5 Leaky valve; Pneumonia; pulmonary fibrosis; - Immunization history:: Adult Immunizations unknown. - Infectious Disease History:: Denies. - Social history:: Smoking status: Patient denies any tobacco usage or history of. - Family history:: not pertinent. - Hospitalizations: : No recent hospitalization is reported. Screenin:05 [facility] ED Fall Risk Assessment (Adult) History of falling in the last 3 months, aa5 including since admission No falls in past 3 months (0 pts) Confusion or Disorientation Yes (5 pts) Intoxicated or Sedated No (0 pts) Impaired Gait Yes (1 pt) Mobility Assist Device Used Yes (1 pt) Altered Elimination No (0 pt) Score/Fall Risk Level 3 or more points = High Risk Oriented to surroundings, Maintained a safe environment, Educated pt \T\ family on fall prevention, incl call for assistance when getting out of bed. Abuse screen: Denies threats or abuse. Nutritional screening: No deficits noted. Tuberculosis screening: No symptoms or risk factors identified. Assessment: 07:00 General: Appears comfortable, Behavior is calm, cooperative. Pain: Denies pain. Neuro: aa5 Level of Consciousness is awake, alert, obeys commands, Oriented to person, place, situation. Cardiovascular: Patient's skin is warm and dry. Respiratory: Airway is patent Respiratory effort is even, unlabored, Respiratory pattern is regular, symmetrical. GI: No signs and/or symptoms were reported involving the gastrointestinal system. : No signs and/or symptoms were reported regarding the genitourinary system. EENT: Biopsy site noted to left ear. . Derm: Skin is pink, warm \T\ dry. Biopsy site noted to forehead, approximately cherelle sized. Musculoskeletal: Pt uses walker to ambulate. 07:20 Reassessment: Forehead site and left ear biopsy site with mild bleeding noted, sites aa5 dressed with Surgicel, gauze, and efrem bandage for pressure dressing by Dr. An. . 08:00 Reassessment: Patient is alert, oriented x 3, equal unlabored respirations, skin aa5 warm/dry/pink. No bleeding noted. . 08:40 Reassessment: Patient is alert, oriented x 3, equal unlabored respirations, skin aa5 warm/dry/pink. Vital Signs: 07:00 BP 133 / 41; Pulse 88; Resp 18 S; Temp 97.6(TE); Pulse Ox 97% on R/A; Weight 74.39 kg aa5 (R); Height 5 ft. 10 in. (R); 08:00 BP 128 / 45; Pulse 75; Resp 16 S; Pulse Ox 98% on R/A; aa5 07:00 Body Mass Index 23.53 (74.39 kg, 177.8 cm) aa5 ED Course: 06:55 Patient arrived in ED. gm2 07:00 Arm band placed on Patient placed in an exam room, on a stretcher. aa5 07:00 Patient has correct armband on for positive identification. Bed in low position. Call aa5 light in reach. Side rails up X2. Adult w/ patient. 07:01 Paco An MD is Attending Physician. rn 07:26 Vogt, Trini, RN is Primary Nurse. aa5 07:33 Triage completed. aa5 08:35 No provider procedures requiring assistance completed. Patient did not have IV access aa5 during this emergency room visit. Administered Medications: No medications were administered Medication: 07:44 VIS not applicable for this client. aa5 Outcome: 08:33 Discharge ordered by . rn 08:40 Discharged to home ambulatory, with walker, accompanied by family aa5 08:40 Condition: stable 08:40 Discharge instructions given to patient, family, Instructed on discharge instructions, follow up and referral plans. Demonstrated understanding of instructions, follow-up care, 08:44 Patient left the ED. ss Signatures: Paco An MD MD rn Calderon, Audri RN RN aa5 Viridiana Matthew RN RN Aubree Santos 2 Corrections: (The following items were deleted from the chart) 07:42 07:00 Chief complaint: Pt's family reports pt was seen by Optics Manufacturing Technician on Saturday and aa5 skin biopsy completed to forehead and to left ear; reports bleeding to sites since yesterday. aa5
[2024-05-28 21:11] VITALS: BP 133/41; TEMP 97.6; O2SAT 97
== END 2024-05-28 08:44 | disposition home or self-care (01) ==
LOC: ER 06:51
DX: L76.22 Postprocedural hemorrhage of skin and subcutaneous tissue following other procedure (principal)
CPT/HCPCS: 99282

== ENCOUNTER 2024-10-14 06:59 | Emergency (ER) | payer OTHER ==
[2024-10-14 07:26] LABS: Absolute Lymphocytes (CBC) 1.7 K/uL (0.7-4.9); Absolute Monocytes 1.1 K/uL (0.1-1.3); Absolute Neutrophil 8.9 K/uL (1.8-8.0); Basophils % 0.2 % (0-1.3); Eosinophils % 0.1 % (0-4.4); Hematocrit 26.9 % (39.6-49.0); Lymphocytes % 14.6 % (15.3-44.8); MCH 29.4 pg (27.0-35.0); MCHC 33.6 g/dL (32.0-36.0); MCV 87.5 fL (80-100); MPV 7.8 fL (7.6-11.3); Monocytes % 9.5 % (3.3-12.3); Neutrophils % 75.6 % (41.7-73.7); Nucleated Red Blood Cells % 0.1 % (0-0); Platelets 203 thou/uL (152-406); RBC Red Blood Cell Count 3.08 M/uL (4.33-5.43); Red Cell Distribution Width 14.5 % (12.1-15.2)
[2024-10-14 07:40] LABS: Anion Gap 7.3 mEq/L (5.0-15.0); Magnesium 2.5 mg/dL (1.6-2.4); Potassium 4.3 mEq/L (3.5-5.1)
--- NOTE | 2024-10-14 07:55 | RAD REPORT ---
EXAM: Chest Single View HISTORY: COUGH COMPARISON: 03/16/2024 FINDINGS: LUNGS/PLEURA: The lungs are clear. No pleural effusions or pneumothorax. No pulmonary edema. MEDIASTINUM: The mediastinal silhouette is within normal limits. CARDIAC: The cardiac silhouette is within normal limits. UPPER ABDOMEN: No significant abnormality. BONES: No acute abnormality. LINES/TUBES/OTHER: N/A IMPRESSION: No evidence of acute cardiopulmonary disease.
[2024-10-14] MEDS ORDERED: FUROSEMIDE 20 MG/ 2ML VIAL ONE (08:12)
--- NOTE | 2024-10-14 09:16 | EDPHYS ---
Physician Documentation [facility] Name: Ander Del Rosario Age: 89 yrs Sex: Male : 1935 Arrival Date: 10/14/2024 Time: 06:59 Bed 13 Private MD: ED Physician Paco An HPI: 10/14 07:19 This 89 yrs old Male presents to ER via EMS with complaints of Abnormal Lab Results. rn 07:19 Patient brought in by EMS from intermediate for abnormal electrolytes. Per nursing rn report possible abnormalities of sodium/calcium/potassium. Patient without any acute complaints. Patient reports cough for 2 weeks but denies dyspnea. No fever or chills. No vomiting or diarrhea. No known medication changes. Patient brought in without medication list from intermediate. Onset: The symptoms/episode began/occurred at an unknown time. It is unknown whether or not the patient has had similar symptoms in the past. It is unknown whether or not the patient has recently seen a physician. Historical: - Allergies: 07:05 No Known Allergies; ll1 - PMHx: 07:05 Anxiety; diabetes mellitus; Chronic systolic heart failure; pulmonary fibrosis; ll1 Hypertension; Dementia; CHF; Leaky valve; Pneumonia; - Immunization history:: Adult Immunizations up to date. - Social history:: Smoking status: Patient denies any tobacco usage or history of. - Family history:: not pertinent. - Hospitalizations: : No recent hospitalization is reported. ROS: 07:19 Constitutional: Negative for fever, chills, and weight loss, Cardiovascular: Negative rn for chest pain, palpitations, and edema, Respiratory: Positive for cough, negative for shortness of breath Abdomen/GI: Negative for abdominal pain, nausea, vomiting, diarrhea, and constipation, Back: Negative for injury and pain, MS/Extremity: Negative for injury and deformity, Skin: Negative for injury, rash, and discoloration, Neuro: Negative for headache, weakness, numbness, tingling, and seizure, Exam: 07:19 Constitutional: This is a well developed, well nourished patient who is awake, alert, rn and in no acute distress. Cardiovascular: Regular rate and rhythm . No pulse deficits. Respiratory: No increased work of breathing, no retractions or nasal flaring. Abdomen/GI: Soft, non-tender Skin: Warm, dry MS/ Extremity: Pulses equal, no cyanosis. Neuro: Awake and alert, GCS 15, oriented to person, place, and situation. Motor strength 5/5 in all extremities. Sensory grossly intact. Vital Signs: 07:04 BP 167 / 62; Pulse 75; Resp 17; Temp 98.1; Pulse Ox 98% on R/A; Weight 79.38 kg; Height ll1 5 ft. 10 in. ; Pain 0/10; 08:56 BP 151 / 50; Pulse 60; Resp 17; Pulse Ox 95% on R/A; ll1 09:28 BP 163 / 53; Pulse 60; Resp 17; Pulse Ox 96% on R/A; ll1 09:49 BP 151 / 56; Pulse 61; ll1 07:04 Body Mass Index 25.11 (79.38 kg, 177.8 cm) ll1 07:04 Pain Scale: Adult ll1 MDM: 07:04 Medical Screening Exam initiated rn 09:14 Differential Diagnosis Electrolyte abnormality, dehydration, pulmonary edema, chronic glove turner and former automatic failure. Data reviewed: vital signs, nurses notes, lab test result(s), EKG, radiologic studies, plain films, and as a result, I will discharge patient. Counseling: I had a detailed discussion with the patient and/or guardian regarding the historical points, exam findings, and any diagnostic results supporting the discharge/admit diagnosis, lab results, radiology results, the need for outpatient follow up, to return to the emergency department if symptoms worsen or persist or if there are any questions or concerns that arise at home. Special discussion: I discussed with the patient/guardian in detail that at this point there is no indication for admission to the hospital. It is understood, however, that if the symptoms persist or worsen the patient needs to return immediately for re-evaluation. ED course: No acute findings and workup today specifically normal sodium/potassium and calcium. Patient was sent for these possible abnormalities. Patient with chronic heart failure but chest x-ray negative for pulmonary edema, given 20 mg of Lasix. Patient also with chronic anemia, baseline is 8.8-9, is 9 today. No active bleeding. Will discharge back to intermediate.. 10/14 07:05 Order name: CBC with Diff rn 10/14 07:05 Order name: Basic Metabolic Panel; Complete Time: 08:00 rn 10/14 07:05 Order name: Magnesium; Complete Time: 08:00 rn 10/14 07:05 Order name: BNP; Complete Time: 08:00 rn 10/14 07:05 Order name: XRAY Chest (1 view); Complete Time: 08:00 rn 10/14 07:05 Order name: EKG; Complete Time: 07:05 rn 10/14 07:05 Order name: IV Start; Complete Time: 07:17 rn 10/14 07:05 Order name: Cardiac monitoring; Complete Time: 07:17 rn 10/14 07:05 Order name: O2 Sat Monitoring; Complete Time: 07:17 rn 10/14 07:05 Order name: EKG - Nurse/Tech; Complete Time: 07:36 rn Administered Medications: 08:23 Drug: Furosemide IVP 20 mg IVP once; give over 2 minutes Route: IVP; Site: right ll1 antecubital; 09:50 Follow up: Response: No adverse reaction ll1 Disposition Summary: 10/14/24 09:16 Discharge Ordered Notes: Location: Home rn Problem: chronic rn Symptoms: have improved rn Condition: Stable rn Diagnosis - Anemia, unspecified rn - Chronic systolic (congestive) heart failure rn Followup: rn - With: Private Physician - When: As needed - Reason: Recheck today's complaints, Re-evaluation by your physician Discharge Instructions: - Discharge Summary Sheet rn - Anemia rn - Heart Failure, Self-Care rn Forms: - Medication Reconciliation Form rn - Antibiotic travel journalist - Prescription Opioid Use rn - Patient Portal Instructions rn - Leadership Thank You Letter rn Signatures: Dispatcher [employer] Paco Roldan MD MD rn Lewis, Lynsay, RN RN 1
--- NOTE | 2024-10-14 09:16 | ER ---
Nurse's Notes [facility] Name: Ander Del Rosario Age: 89 yrs Sex: Male : 1935 Arrival Date: 10/14/2024 Time: 06:59 Bed 13 Private MD: Diagnosis: Anemia, unspecified;Chronic systolic (congestive) heart failure Presentation: 10/14 07:04 Chief complaint: EMS states: Sent in for abnormal lab results. Possibly sodium and ll1 calcium. Coronavirus screen: Client denies travel out of the [place] in the last 14 days. congestion, cough unrelated to allergies, difficulty breathing, Client presents with at least one sign or symptom that may indicate coronavirus-19. Standard/surgical mask placed on the client. Ebola Screen: Patient denies travel to an Ebola-affected area in the 21 days before illness onset. Initial Sepsis Screen: Does the patient meet any 2 criteria? No. Patient's initial sepsis screen is negative. Does the patient have a suspected source of infection? No. Patient's initial sepsis screen is negative. Risk Assessment: Do you want to hurt yourself or someone else? Patient reports no desire to harm self or others. Onset of symptoms was October 14, 2024. 07:04 Method Of Arrival: EMS ll1 07:04 Acuity: DIONNA 3 ll1 Triage Assessment: 07:05 General: Appears in no apparent distress. Behavior is calm, cooperative, appropriate ll1 for age. Pain: Denies pain. Respiratory: Reports cough that is non-productive. Historical: - Allergies: 07:05 No Known Allergies; ll1 - PMHx: 07:05 Anxiety; diabetes mellitus; Chronic systolic heart failure; pulmonary fibrosis; ll1 Hypertension; Dementia; CHF; Leaky valve; Pneumonia; - Immunization history:: Adult Immunizations up to date. - Social history:: Smoking status: Patient denies any tobacco usage or history of. - Family history:: not pertinent. - Hospitalizations: : No recent hospitalization is reported. Screenin:[facility] ED Fall Risk Assessment (Adult) History of falling in the last 3 months, ll1 including since admission No falls in past 3 months (0 pts) Confusion or Disorientation No (0 pts) Intoxicated or Sedated No (0 pts) Impaired Gait No (0 pts) Mobility Assist Device Used Yes (1 pt) Altered Elimination No (0 pt) Score/Fall Risk Level 0 - 2 = Low Risk Maintained a safe environment, Hourly rounding (assess needs \T\ fall precautionary measures) done. Abuse screen: Denies threats or abuse. Nutritional screening: No deficits noted. Tuberculosis screening: No symptoms or risk factors identified. Assessment: 08:23 Reassessment: No changes from previously documented assessment. Patient and/or family ll1 updated on plan of care and expected duration. Pain level reassessed. Patient is alert, oriented x 3, equal unlabored respirations, skin warm/dry/pink. 09:29 Reassessment: No changes from previously documented assessment. Calling [place] for ll1 ride home. 09:49 Reassessment: No changes from previously documented assessment. Patient and/or family ll1 updated on plan of care and expected duration. Pain level reassessed. Patient is alert, oriented x 3, equal unlabored respirations, skin warm/dry/pink. 10:00 Reassessment: No changes from previously documented assessment. Patient and/or family ll1 updated on plan of care and expected duration. Pain level reassessed. Patient is alert, oriented x 3, equal unlabored respirations, skin warm/dry/pink. Vital Signs: 07:04 BP 167 / 62; Pulse 75; Resp 17; Temp 98.1; Pulse Ox 98% on R/A; Weight 79.38 kg; Height ll1 5 ft. 10 in. ; Pain 0/10; 08:56 BP 151 / 50; Pulse 60; Resp 17; Pulse Ox 95% on R/A; ll1 09:28 BP 163 / 53; Pulse 60; Resp 17; Pulse Ox 96% on R/A; ll1 09:49 BP 151 / 56; Pulse 61; ll1 07:04 Body Mass Index 25.11 (79.38 kg, 177.8 cm) ll1 07:04 Pain Scale: Adult ll1 ED Course: 07:03 Patient arrived in ED. rk3 07:04 Paco An MD is Attending Physician. rn 07:04 David Collier, SULMA is Primary Nurse. ll1 07:05 Triage completed. ll1 07:06 Arm band placed on. ll1 07:10 Patient has correct armband on for positive identification. Bed in low position. ll1 Provided Education on: ER procedures and process. Client placed on continuous cardiac and pulse oximetry monitoring. NIBP monitoring applied. monitoring specialist on. 07:10 Missed attempt(s): 22 gauge in right forearm. Bleeding controlled, band aid applied, ll1 catheter tip intact. 07:13 Initial lab(s) drawn, by me, sent to lab. Inserted saline lock: 22 gauge in right ll1 antecubital area, using aseptic technique. Blood collected. Flushed with 10 mL NS. 07:52 XRAY Chest (1 view) In Process Unspecified. EDMS 09:39 Report to Lucas Vazquez, arranging a ride back. 1 09:48 Report given to halfway RN. ll1 09:49 No provider procedures requiring assistance completed. IV discontinued, intact, ll1 bleeding controlled, No redness/swelling at site. Pressure dressing applied. Administered Medications: 08:23 Drug: Furosemide IVP 20 mg IVP once; give over 2 minutes Route: IVP; Site: right ll1 antecubital; 09:50 Follow up: Response: No adverse reaction ll1 Medication: 09:50 VIS not applicable for this client. ll1 Output: 09:50 Urine: 600ml (Voided); Total: 600ml. 1 Outcome: 09:16 Discharge ordered by . rn 09:50 Discharged to senior living. Report called to [place] ll1 09:50 Condition: stable 09:50 Discharge instructions given to patient, Instructed on discharge instructions, follow up and referral plans. Demonstrated understanding of instructions, follow-up care, 10:12 Patient left the ED. 1 Signatures: Dispatcher [employer] EDCO Paco An MD MD rn Lewis, Lynsay, RN RN 1 Lesly Shaffer rk3 Corrections: (The following items were deleted from the chart) 09:49 09:39 Reassessment: No changes from previously documented assessment. Patient and/or ll1 family updated on plan of care and expected duration. Pain level reassessed. ll1
[2024-10-14 11:19] LABS: Band Neutrophils 1 % (0-1); Differential Total Cells Count 100; Lymphocytes 15 % (15-42); Segmented Neutrophils 73 % (40-80)
[2024-10-14 11:20] LABS: Metamyelocytes 2 % (0-0); Monocytes 5 % (0-10); Myelocytes 3 % (0-0)
[2024-10-14 11:21] LABS: Blood Morphology Comment NOT SEEN (NOT SEEN); Platelet Estimate ADEQ
[2024-10-14 12:20] VITALS: TEMP 98.1
[2024-10-14 12:22] VITALS: O2SAT 96
[2024-10-14 12:23] VITALS: BP 151/56
== END 2024-10-14 10:12 | disposition home or self-care (01) ==
LOC: ER 06:59
DX: D64.9 Anemia, unspecified (principal); I50.22 Chronic systolic (congestive) heart failure; I10 Essential (primary) hypertension; E11.9 Type 2 diabetes mellitus without complications
CPT/HCPCS: 85025; 80048; 36415; 83735; 83880; 71045; J1940; 93005